=== PATIENT | male | born 1980 | race Two or more races ===

== ENCOUNTER 2025-03-29 22:52 | Inpatient (IN) | payer MEDICAID, OTHER ==
[~2025-03-29] VITALS: Ht 172.7 cm; Wt 70.3 kg
--- NOTE | 2025-03-30 00:31 | ED.PDOC ---
History of Present Illness HPI Comments 44 y/o M is brought in by ambulance for chief complaint of headache, blurry vision, and dizziness status post syncope and fall. Patient reports he fainted outside of an [employer] parking lot, this morning. He reports experiencing a dizziness, chest pain, and shortness of breath prior to passing out. Reports consuming two tall cans of beer prior to arrival. Significant history of liver cirrhosis, diabetes, noncompliance, DKA, and alcohol abuse. Patient has a history of syncope in the past possibly related to DKA. Patient reports he does not have his insulin at this time. Patient denies having any current chest pain, shortness of breath, weakness, numbness, tingling, further associated symptoms or injuries. REVIEW OF SYSTEMS: General: No fever, no chills, HEENT: No neck pain, no blurred vision Cardiac: No chest pain. No palpitations. Lungs: No shortness of breath, GI: No abdominal pain, no vomiting Musculoskeletal: No joint pain , no back pain Skin: No rash, no wound Neuro: Headache, blurry vision, dizziness, syncope PHYSICAL EXAM: General: Awake, alert and oriented. No acute distress. Skin: Skin in warm, dry and intact without rashes or lesions. HEENT: The head is normocephalic and atraumatic. Conjunctivae are clear without exudates or hemorrhage. Sclera is non-icteric. Neck: Normal range of motion. No JVD. Cardiac: Regular rate Respiratory: No signs of respiratory distress. No Stridor. Extremities: Upper and lower extremities are atraumatic in appearance without deformity. Neurological: The patient is awake, alert and oriented to person, place, and time with normal speech. Speech volume low however speech is clear. There is no facial asymmetry. Psychiatric: Appropriate mood and affect. Good judgement and insight. Chief Complaint: Dizziness Time Seen by MD: 23:45 Reviewed Notes: Nurses Notes, Crop Puller Notes, Medications, Allergies Allergies: Coded Allergies: Penicillins (Verified Allergy, Unknown, 03/29/25) Home Meds Reported Medications Insulin Glargine (Insulin Glargine Solostar) 300 Unit/Ml Inj, 15 UNITS SUBCUT BID 03/30/25 Gabapentin (Gabapentin) 300 Mg Cap, 1 CAP PO DAILY 03/30/25 Simvastatin (Simvastatin) 20 Mg Tab, 1 TAB PO HS 03/30/25 Lisinopril (Lisinopril) 10 Mg Tab, 1 TAB PO DAILY 03/30/25 Insulin Isophane & Reg (Human) (Humulin 70/30 (70-30) 100 Unit/ml) 1 Units/0.01 Ml Inj, 15 UNIT SC BID 03/30/25 Information Source: Patient, Emergency Med Personnel Mode of Arrival: EMS Past Medical History PAST MEDICAL HISTORY: DM, HTN, Liver (Cirrhosis) Past Medical History (Other): DKA Surgical History (Other): Right foot surgery Social History Smoker: Non-Smoker Alcohol: Heavy Drugs: Denies Drug Use Lives In: Home Was a procedure done? Was a procedure done?: No Differential Dx Considerations may include: Differential diagnoses considered include but are not limited to cardiac structural disease, arrhythmia, acute coronary syndrome, orthostasis, pulmonary embolism, dissection, seizure, basilar stroke, other. X-Ray, Labs, Meds, VS Vital Signs Date Time Temp Pulse Resp B/P (MAP) Pulse Ox O2 Delivery O2 Flow Rate FiO2 03/30/25 07:00 90 13 122/64 (83) 94 03/30/25 06:30 94 14 115/62 (79) 94 03/30/25 06:00 92 13 131/74 (93) 94 03/30/25 05:30 94 13 110/63 (79) 94 03/30/25 05:00 97 14 117/66 (83) 93 03/30/25 04:30 98 Room Air* 0 21 03/30/25 04:20 98.9 99 18 154/86 (108) 94 98.9 03/30/25 04:00 102 03/30/25 02:40 97.8 101 17 137/64 (88) 93 97.8 03/29/25 23:01 98.3 104 18 120/72 96 98.3 Lab Test 03/30/25 05:58 03/30/25 04:22 03/30/25 03:09 03/30/25 02:57 Range/Units POC Glucose 348 H 450 *H 70-106 mg/dl Sodium Level 133 L 136-145 mmol/L Potassium Level 4.1 3.5-5.1 mmol/L Chloride Level 97 L 98-107 mmol/L Carbon Dioxide Level 18 L 20-31 mmol/L Anion Gap 18 H 5-15 Blood Urea Nitrogen 12 9-23 mg/dL Creatinine 0.91 0.700-1.30 mg/dL Glomerular Filtration Rate Calc 106 >90 mL/min BUN/Creatinine Ratio 13.2 10.0-20.0 Serum Glucose 435 *H 74-106 mg/dL Calcium Level 9.8 8.7-10.4 mg/dL Blood Gas Specimen Type Arterial Blood Gas Sample Site Left radial Blood Gas Patient Temperature 37.0 Arterial Blood Date Drawn [id number] Arterial Blood pH 7.366 7.350-7.450 Arterial Blood Partial Pressure CO2 26.8 L 35.0-48.0 mmHg Arterial Blood Partial Pressure O2 77.6 L 83.0-108.0 mmHg Arterial Blood HCO3 15.0 L 21.0-28.0 mmol/L Arterial Blood Oxygen Saturation 93.8 L 94.0-98.0 % Arterial Blood Base Excess -8.5 L -2.0-3.0 mmol/L Arterial Blood Oxyhemoglobin 91.8 L 94.0-98.0 % Arterial Blood Carboxyhemoglobin 1.5 0.5-1.5 % Arterial Blood Methemoglobin 0.6 0.0-1.5 % Anmol Test Yes Blood Gas Total Hemoglobin 15.40 13.5-17.5 g/dL Blood Gas Liter Flow 0.00 Blood Gas Modality Room air Blood Gas Spontaneous Rate 22 FiO2 % 21.0 Specimen Drawn By Angéliac rt Test 03/29/25 23:59 Range/Units White Blood Count 3.8 L 4.4-10.8 10^3/uL Red Blood Count 3.92 L 4.5-5.90 10^6/uL Hemoglobin 14.7 13.5-17.5 g/dL Hematocrit 41.2 41.0-53.0 % Mean Corpuscular Volume 104.9 H 80.0-100.0 fL Mean Corpuscular Hemoglobin 37.4 H 28.0-32.0 pg Mean Corpuscular Hemoglobin Concent 35.7 32.0-36.0 g/dL Red Cell Distribution Width 13.9 11.8-14.3 % Platelet Count 106 L 140-450 10^3/uL Mean Platelet Volume 7.7 6.9-10.8 fL Neutrophils (%) (Auto) 54.1 37.0-80.0 % Lymphocytes (%) (Auto) 33.9 10.0-50.0 % Monocytes (%) (Auto) 9.0 0.0-12.0 % Eosinophils (%) (Auto) 1.7 0.0-7.0 % Basophils (%) (Auto) 1.3 0.0-2.0 % Neutrophils # (Auto) 2.0 1.6-8.6 10 ^3/uL Lymphocytes # (Auto) 1.3 0.4-5.4 10 ^3/uL Monocytes # (Auto) 0.3 0-1.3 10 ^3/uL Eosinophils # (Auto) 0.1 0-0.8 10 ^3/uL Basophils # (Auto) 0.1 0-0.2 10 ^3/uL Nucleated Red Blood Cells 0.0 % Sodium Level 132 L 136-145 mmol/L Potassium Level 3.8 3.5-5.1 mmol/L Chloride Level 96 L 98-107 mmol/L Carbon Dioxide Level 17 L 20-31 mmol/L Anion Gap 19 H 5-15 Blood Urea Nitrogen 12 9-23 mg/dL Creatinine 0.89 0.700-1.30 mg/dL Glomerular Filtration Rate Calc 108 >90 mL/min BUN/Creatinine Ratio 13.5 10.0-20.0 Serum Glucose 456 *H 74-106 mg/dL Serum Osmolality 335 H 278-298 mOsm/kg Calcium Level 9.5 8.7-10.4 mg/dL Phosphorus Level 3.4 2.4-5.1 mg/dL Magnesium Level 2.0 1.6-2.6 mg/dL Troponin I High Sensitivity < 3 L </=54 ng/L B-Type Natriuretic Peptide 23.88 0-100 pg/mL Beta-Hydroxybutyric Acid 0.971 H < 0.4 mmol/L Plasma/Serum Blood Alcohol 116.2 H <10 mg/dL Current Medications Medications (Trade) Dose Ordered Sig/Rod Route Start Time Stop Time Status Last Admin Sodium Chloride 1,000 ml @ 1,000 mls/hr Q1H ONCE IV 03/30/25 00:00 03/30/25 00:59 DC 03/30/25 04:16 Sodium Chloride 1,000 ml @ 1,000 mls/hr Q1H ONCE IV 03/30/25 02:30 03/30/25 03:29 DC 03/30/25 05:03 Sodium Chloride 1,000 ml @ 500 mls/hr Q2H IV 03/30/25 02:30 03/30/25 06:29 DC 03/30/25 08:40 Sodium Chloride 1,000 ml @ 250 mls/hr Q4H IV 03/30/25 06:30 03/30/25 08:29 DC 03/30/25 08:40 Insulin Human (Reg)/Sodium Chloride 100 ml @ 0.5 mls/hr Q24H IV 03/30/25 04:30 03/30/25 14:13 DC 03/30/25 04:29 Diagnostic Test (Pha) (Accu-Chek Comfort Curve T) 1 strip Q90MIN 03/30/25 04:30 03/30/25 15:28 DC 03/30/25 15:13 [place] [id number] Ph: [phone] DIAGNOSTIC IMAGING Diagnostic Imaging Report : [id number] Signed PATIENT: RINKU LORENZO ACCT: [id number] UNIT: [id number] : 1980 LOC: ER ROOM / BED: / AGE / SEX: 44 / M ADM STATUS: REG ER SERVICE 0004 ORDERING PHYSICIAN: GRANT ROMERO MD PROCEDURE(s): CXR1 - CHEST XRAY 1 VIEW REASON: Chest pain, dizziness ORDER NUMBER(s): [id number], ACCESSION NUMBER(s): [id number] CHEST RADIOGRAPH Indication: Chest pain, dizziness Technique: 1 view Comparison: None FINDINGS: Lines and Tubes: None Lungs: No focal consolidation. Pleura: Bilateral perihilar interstitial opacities. No focal consolidation. Cardiomediastinal contours: Unremarkable. Bones: No acute osseous abnormality. IMPRESSION: Interstitial opacities suggesting edema or atypical infection/pneumonitis. ATED BY: CLIFTON LEE MD DICTATED DATE/TIME: 03/30/25127 SIGNED BY: CLIFTON LEE MD SIGNED DATE/TIME: 03/30/25127 CC: Time of 1ST Reevaluation: 00:15 Reevaluation 1ST: Unchanged Patient Education/Counseling: Treatment, Other (Need for admission) Family Education/Counseling: No Family Present SEPSIS Sepsis Screen Date sepsis recognized/suspect: Mar 29, 2025 Time Sepsis recognized/suspect: 2257 Recent Procedure: No On Antibiotic Therapy: No Respiratory Rate >20: No Heart Rate >90: Yes Temp<36 C (96.8 F) or >38.3 C: No SBP <90 or MAP <65 mmHG: No New Acute Mental Status Change: No Is the patient on CPAP, BIPAP,: No Physician Orders Electrocardigram (03/29/25 23:50) Ops Analyst (03/29/25 ) Orthostatic Vital Signs (03/29/25 ) Saline Lock (03/29/25 23:50) Fall Precautions Initiated (03/29/25 23:50) Urinalysis (03/29/25 23:50) Drug Screen (03/29/25 23:50) Chest Xray 1 View (03/30/25 00:04) Abg W/ Co-Ox (03/30/25 02:27) Insulin Drip Protocol (03/30/25 ) Neurological Assessment (03/30/25 02:28) Vs/Hemodynamics .PER UNIT PROTOCOL (03/30/25 02:28) Vital Signs Q1HR (03/30/25 02:31) Vital Signs Date Time Temp Pulse Resp B/P (MAP) Pulse Ox O2 Delivery O2 Flow Rate FiO2 03/30/25 07:00 90 13 122/64 (83) 94 03/30/25 06:30 94 14 115/62 (79) 94 03/30/25 06:00 92 13 131/74 (93) 94 03/30/25 05:30 94 13 110/63 (79) 94 03/30/25 05:00 97 14 117/66 (83) 93 03/30/25 04:30 98 Room Air* 0 21 03/30/25 04:20 98.9 99 18 154/86 (108) 94 98.9 03/30/25 04:00 102 03/30/25 02:40 97.8 101 17 137/64 (88) 93 97.8 03/29/25 23:01 98.3 104 18 120/72 96 98.3 Laboratory Tests Test 03/29/25 23:59 White Blood Count 3.8 10^3/uL (4.4-10.8) L Departure 1 Departure Time of Disposition: 02:55 Impression: Primary Impression: DKA (diabetic ketoacidosis) Additional Impression: Syncope Disposition: ADMITTED INPATIENT Condition: Stable Comments MDM: 44-year-old male with syncopal episode in DKA IV fluids and insulin initiated in the ED Patient admitted to hospitalist service for further treatment, evaluation and monitoring. Extensive evaluation was performed in attempt to identify or rule out: (See differential diagnosis section) The following tests were ordered, and results were reviewed by me and discussed with patient: (See diagnostic results section) The following test were independently interpreted by me: N/A I reviewed and agreed with the following test results read by other providers: Chest x-ray I reviewed the following notes from the pt's past medical encounters: N/A Additional information was gathered from interviewing the following independent historians: EMS personnel Discussion of management or test interpretation with external physician/other qualified health child care cook: N/A Addressed one or more chronic illnesses with severe exacerbation, progression, or side effects of treatment: Diabetes, an acute or chronic illness that poses a threat to life or bodily function: Hyperglycemia, syncope Decision regarding hospitalization or escalation of hospital level of care: Risk and benefits of admission for further treatment of patient's condition was considered. Due to patient's current clinical condition, high risk of decline and poor outcome if discharged and need for further inpatient management and monitoring, patient will be admitted to the hospital. Critical Care Note Critical Care Time?: No Stability Stability form required: No Heart Score Heart Score: Heart Score Response (Comments) Value History Moderate Suspicious 1 EKG Normal 0 Age 45-64 1 Risk Factors 1 or 2 risk factors 1 Troponin Normal limit 0 Total 3 I personally scribed for GRANT ROMERO MD ([email or web address]) on 03/30/25 at 00:31. Electronically submitted by Randy Aguero ([email or web address]). I personally scribed for GRANT ROMERO MD ([email or web address]) on 03/30/25 at 02:48. Electronically submitted by Randy Aguero ([email or web address]). GRANT ROMERO MD Mar 30, 2025 00:31
[2025-03-30 00:35] LABS: Potassium 3.8 mmol/L (3.5-5.1)
[2025-03-30 00:36] LABS: Anion Gap 19 (5-15)
[2025-03-30 00:37] LABS: Calcium 9.5 mg/dL (8.7-10.4)
[2025-03-30 00:41] LABS: Hemoglobin 14.7 g/dL (13.5-17.5)
[2025-03-30 00:42] LABS: BUN/Creatinine Ratio 13.5 (10.0-20.0); Blood Urea Nitrogen 12 mg/dL (9-23)
[2025-03-30 00:43] LABS: Hematocrit 41.2 % (41.0-53.0); Mean Corpuscular Hemoglobin 37.4 pg (28.0-32.0); Mean Corpuscular Volume 104.9 fL (80.0-100.0); Nucleated Red Blood Cells % 0.0 %
[2025-03-30 00:56] LABS: Carbon Dioxide 17 mmol/L (20-31); Chloride 96 mmol/L (98-107); Sodium 132 mmol/L (136-145)
[2025-03-30 00:58] LABS: Glucose 456 mg/dL (74-106)
--- NOTE | 2025-03-30 01:30 | DVH ---
CHEST RADIOGRAPH Indication: Chest pain, dizziness Technique: 1 view Comparison: None FINDINGS: Lines and Tubes: None Lungs: No focal consolidation. Pleura: Bilateral perihilar interstitial opacities. No focal consolidation. Cardiomediastinal contours: Unremarkable. Bones: No acute osseous abnormality. IMPRESSION: Interstitial opacities suggesting edema or atypical infection/pneumonitis.
[2025-03-30] MEDS ORDERED: INSULIN DRIP 100 UNIT/100ML 100 ML IV SCH (02:30)
[2025-03-30] MEDS ORDERED: DEXTROSE (50%) 50ML SYRG IV PRN ×2 (02:30→14:15)
[2025-03-30 02:58] LABS: Magnesium 2.0 mg/dL (1.6-2.6)
[2025-03-30] MEDS ORDERED: ACCU-CHEK COMFORT CURVE STRIP VI SCH (03:00)
[2025-03-30 03:02] LABS: Base Excess -8.5 mmol/L (-2.0-3.0)
[2025-03-30 03:33] LABS: Potassium 4.1 mmol/L (3.5-5.1)
[2025-03-30 03:34] LABS: Anion Gap 18 (5-15); Calcium 9.8 mg/dL (8.7-10.4); Carbon Dioxide 18 mmol/L (20-31); Chloride 97 mmol/L (98-107); Sodium 133 mmol/L (136-145)
[2025-03-30 03:39] LABS: BUN/Creatinine Ratio 13.2 (10.0-20.0); Blood Urea Nitrogen 12 mg/dL (9-23)
[2025-03-30 03:49] LABS: Glucose 435 mg/dL (74-106)
[2025-03-30] MEDS: SODIUM CHLORIDE 0.9% 1,000 ML IV ONE ×3 (04:16→15:12)
[2025-03-30] MEDS: INSULIN DRIP 100 UNIT/100ML 100 ML IV SCH (04:29)
[2025-03-30] MEDS: ACCU-CHEK COMFORT CURVE STRIP VI SCH ×2 (04:29→17:54)
[2025-03-30 04:30] VITALS: O2SAT 98
[2025-03-30] MEDS: SODIUM CHLORIDE 0.9% 1,000 ML IV SCH ×3 (06:14→09:17)
[2025-03-30] MEDS ORDERED: GABA-1250 PO (06:42)
[2025-03-30] MEDS ORDERED: SIMV20TA20 PO (06:42)
[2025-03-30] MEDS ORDERED: INS7030I SC (06:42)
[2025-03-30] MEDS ORDERED: LISI10TA34 PO (06:42)
[2025-03-30] MEDS ORDERED: HYDROcodone-ACET 5/325MG TAB PO PRN ×2 (08:00→08:15)
[2025-03-30] MEDS ORDERED: DOCUSATE SOD 100 MG CAP PO PRN ×2 (08:00→08:15)
[2025-03-30] MEDS ORDERED: NITROGLYCERIN 0.4 MG SL TAB SL PRN ×2 (08:00→08:15)
[2025-03-30] MEDS ORDERED: MORPHINE SULFATE INJ 2 MG/ml SYRG IV PRN ×2 (08:00→08:15)
[2025-03-30] MEDS ORDERED: ONDANSETRON HCL 4 MG/2 ML VIAL IV PRN ×2 (08:00→08:15)
[2025-03-30] MEDS ORDERED: ACETAMINOPHEN 325 MG TAB PO PRN ×2 (08:00→08:15)
[2025-03-30] MEDS ORDERED: INSU300I5 SUBCUT (08:01)
[2025-03-30 08:06] VITALS: RESP 15; O2SAT 98
--- NOTE | 2025-03-30 08:13 | DVHHP2 ---
History of Present Illness Reason for Visit: Dizziness History of Present Illness Shahid Huff is a 44-year-old male with past medical history of diabetes, hypertension, hyperlipidemia, liver cirrhosis, and noncompliance, who came to the hospital after a syncopal event this morning. Patient does not remember exactly what happened or what time, but he states he was outside [employer] when he felt dizzy and and had a syncopal event. He states this has happened to him before when he did not take his insulin and went into DKA. He did not take his insulin yesterday. Cardiovascular: HTN, hyperipidemia Hepatobiliary: Cirrhosis Endocrine: Diabetes Past Surgical History: None Smoke: No ALCOHOL: heavy (2 tall cans of beer/day) Drugs: Marijuana Lives: Alone Domestic Violence: Neg Review of Systems Constitutional: No: Fever, Chills, Sweats, Weakness, Malaise, Other Eyes: No: Pain, Vision change, Conjunctivae inflammation, Eyelid inflammation, Other, Redness ENT: No: Ear pain, Ear discharge, Nose pain, Nose discharge, Nose congestion, Mouth pain, Mouth swelling, Throat pain, Throat swelling, Other Respiratory: No: Cough, Dry, Shortness of breath, SOB with excertion, Wheezing, Hemoptysis, Pleuritic Pain, Sputum, Wheezing, Other Cardiovascular: No: Chest Pain, Palpitations, Orthopnea, Paroxysmal Noc. Dyspnea, Edema, Lt Headedness, Other Gastrointestinal: Nausea; No: Vomiting, Abdominal Pain, Diarrhea, Constipation, Melena, Hematochezia, Other Genitourinary: No Dysuria, No Frequency, No Incontinence, No Hematuria, No Retention, No Other Musculoskeletal: No: other, neck pain, shoulder pain, arm pain, back pain, hand pain, leg pain, foot pain Skin: No: Rash, Lesions, Jaundice, Bruising, Other Neurological: Incoordination, Other (Syncopal event); No: Weakness, Numbness, Change in speech, Confusion, Seizures Allergies: Coded Allergies: Penicillins (Verified Allergy, Unknown, 03/29/25) Medications Current Medications Medications Dose Ordered Sig/Rod Route Start Time Stop Time Status Last Admin Dose Admin Sodium Chloride 1,000 ml @ 250 mls/hr Q4H IV 03/30/25 06:30 03/30/25 08:29 Sodium Chloride 1,000 ml @ 150 mls/hr Q6H40M IV 03/30/25 08:30 Dextrose 50 ml UD PRN IV 03/30/25 02:30 Insulin Human (Reg)/Sodium Chloride 100 ml @ 0.5 mls/hr Q24H IV 03/30/25 04:30 03/30/25 04:29 6 MLS/HR Diagnostic Test (Pha) 1 strip Q90MIN 03/30/25 04:30 03/30/25 06:14 1 STRIP Acetaminophen/ Hydrocodone Bitart 1 tab Q4HP PRN PO 03/30/25 08:00 UNV Ondansetron HCl 4 mg Q4HP PRN IV 03/30/25 08:00 UNV Docusate Sodium 100 mg BIDPRN PRN PO 03/30/25 08:00 UNV Acetaminophen 650 mg Q6HP PRN PO 03/30/25 08:00 UNV Nitroglycerin 0.4 mg Q5MINP PRN SL 03/30/25 08:00 UNV Morphine Sulfate 2 mg Q30M PRN IV 03/30/25 08:00 UNV Patient Own Medication 1 tab DAILY PO 03/30/25 10:00 UNV Patient Own Medication 1 tab HS PO 03/30/25 22:00 UNV Exam Vital Signs Vital Signs Date Time Temp Pulse Resp B/P (MAP) Pulse Ox O2 Delivery O2 Flow Rate FiO2 03/30/25 07:00 90 13 122/64 (83) 94 03/30/25 04:30 Room Air* 0 21 03/30/25 04:20 98.9 98.9 General Appearance: Alert, Oriented X3, Cooperative, mild distress HEENT: Atraumatic, PERRLA Respiratory: Clear to auscultation, Normal air movement Cardiovascular: Regular rate, Normal S1, Normal S2 Abdominal: Normal bowel sounds, Soft, No tenderness Extremities: No clubbing, No cyanosis, No edema, Normal pulses Skin: No rashes, No breakdown, No significant lesion Neuro: Normal gait, Normal speech, Strength at 5/5 X4 ext, Normal tone Psych/Mental Status: Mental status NL, Mood NL Labs/Xrays Labs Test 03/30/25 05:58 03/30/25 03:09 03/30/25 02:57 03/29/25 23:59 Range/Units POC Glucose 348 H 70-106 mg/dl Sodium Level 133 L 136-145 mmol/L Potassium Level 4.1 3.5-5.1 mmol/L Chloride Level 97 L 98-107 mmol/L Carbon Dioxide Level 18 L 20-31 mmol/L Anion Gap 18 H 5-15 Blood Urea Nitrogen 12 9-23 mg/dL Creatinine 0.91 0.700-1.30 mg/dL Glomerular Filtration Rate Calc 106 >90 mL/min BUN/Creatinine Ratio 13.2 10.0-20.0 Serum Glucose 435 *H 74-106 mg/dL Calcium Level 9.8 8.7-10.4 mg/dL Blood Gas Specimen Type Arterial Blood Gas Sample Site Left radial Blood Gas Patient Temperature 37.0 Arterial Blood Date Drawn [id number] Arterial Blood pH 7.366 7.350-7.450 Arterial Blood Partial Pressure CO2 26.8 L 35.0-48.0 mmHg Arterial Blood Partial Pressure O2 77.6 L 83.0-108.0 mmHg Arterial Blood HCO3 15.0 L 21.0-28.0 mmol/L Arterial Blood Oxygen Saturation 93.8 L 94.0-98.0 % Arterial Blood Base Excess -8.5 L -2.0-3.0 mmol/L Arterial Blood Oxyhemoglobin 91.8 L 94.0-98.0 % Arterial Blood Carboxyhemoglobin 1.5 0.5-1.5 % Arterial Blood Methemoglobin 0.6 0.0-1.5 % Anmol Test Yes Blood Gas Total Hemoglobin 15.40 13.5-17.5 g/dL Blood Gas Liter Flow 0.00 Blood Gas Modality Room air Blood Gas Spontaneous Rate 22 FiO2 % 21.0 Specimen Drawn By [facility] rt White Blood Count 3.8 L 4.4-10.8 10^3/uL Red Blood Count 3.92 L 4.5-5.90 10^6/uL Hemoglobin 14.7 13.5-17.5 g/dL Hematocrit 41.2 41.0-53.0 % Mean Corpuscular Volume 104.9 H 80.0-100.0 fL Mean Corpuscular Hemoglobin 37.4 H 28.0-32.0 pg Mean Corpuscular Hemoglobin Concent 35.7 32.0-36.0 g/dL Red Cell Distribution Width 13.9 11.8-14.3 % Platelet Count 106 L 140-450 10^3/uL Mean Platelet Volume 7.7 6.9-10.8 fL Neutrophils (%) (Auto) 54.1 37.0-80.0 % Lymphocytes (%) (Auto) 33.9 10.0-50.0 % Monocytes (%) (Auto) 9.0 0.0-12.0 % Eosinophils (%) (Auto) 1.7 0.0-7.0 % Basophils (%) (Auto) 1.3 0.0-2.0 % Neutrophils # (Auto) 2.0 1.6-8.6 10 ^3/uL Lymphocytes # (Auto) 1.3 0.4-5.4 10 ^3/uL Monocytes # (Auto) 0.3 0-1.3 10 ^3/uL Eosinophils # (Auto) 0.1 0-0.8 10 ^3/uL Basophils # (Auto) 0.1 0-0.2 10 ^3/uL Nucleated Red Blood Cells 0.0 % Serum Osmolality 335 H 278-298 mOsm/kg Phosphorus Level 3.4 2.4-5.1 mg/dL Magnesium Level 2.0 1.6-2.6 mg/dL Troponin I High Sensitivity < 3 L </=54 ng/L B-Type Natriuretic Peptide 23.88 0-100 pg/mL Beta-Hydroxybutyric Acid 0.971 H < 0.4 mmol/L Plasma/Serum Blood Alcohol 116.2 H <10 mg/dL CHEST RADIOGRAPH FINDINGS: Lines and Tubes: None Lungs: No focal consolidation. Pleura: Bilateral perihilar interstitial opacities. No focal consolidation. Cardiomediastinal contours: Unremarkable. Bones: No acute osseous abnormality. IMPRESSION: Interstitial opacities suggesting edema or atypical infection/pne umonitis. SEPSIS Sepsis Screen Date sepsis recognized/suspect: Mar 29, 2025 Time Sepsis recognized/suspect: 2257 Recent Procedure: No On Antibiotic Therapy: No Respiratory Rate >20: No Heart Rate >90: Yes Temp<36 C (96.8 F) or >38.3 C: No SBP <90 or MAP <65 mmHG: No New Acute Mental Status Change: No Is the patient on CPAP, BIPAP,: No Physician Orders Chest Xray 1 View (03/30/25 00:04) Abg W/ Co-Ox (03/30/25 02:27) Insulin Drip Protocol (03/30/25 ) Sodium Chloride 0.9% (03/30/25 06:30) Sodium Chloride 0.9% (03/30/25 08:30) Dextrose 50% Syringe (03/30/25 02:30) Basic Metabolic Panel (03/30/25 08:28) Basic Metabolic Panel (03/30/25 14:28) Basic Metabolic Panel (03/30/25 20:28) Neurological Assessment (03/30/25 02:28) Vs/Hemodynamics .PER UNIT PROTOCOL (03/30/25 02:28) Vital Signs Q1HR (03/30/25 02:31) Insulin Drip 100 Unit/100ml (Myxredlin 1 (03/30/25 04:30) Glucose Blood (Accu-Chek Comfort Curve T (03/30/25 04:30) Admit (03/30/25 07:55) Code Status (03/30/25 07:55) Hydrocodone-Acet 5/325mg Tab ([place] 32 (03/30/25 08:00) Ondansetron Hcl (Zofran) (03/30/25 08:00) Docusate Sodium Capsule (Colace Capsule) (03/30/25 08:00) Complete Blood Count (03/31/25 04:00) Comprehensive Metabolic Panel (03/31/25 04:00) Npo (Nothing By Mouth) Diet (03/30/25 Breakfast) Condition: Critical (03/30/25 07:55) Acetaminophen Tablet (Tylenol Tablet) (03/30/25 08:00) Nitroglycerin Sublingual (Ntrostat Subli (03/30/25 08:00) Morphine Sulfate Injection (03/30/25 08:00) Stat Ekg For Chest Pain (03/30/25 07:55) Notify Md Of Changes From Base (03/30/25 07:55) Welfare Analyst For 24 Hours (03/30/25 07:55) Emergency Dysrhythmia Protocol (03/30/25 07:55) Rhythm Strips Once Every Shift (03/30/25 07:55) Oxygen By Nasal Cannula (03/30/25 07:55) (Nf) Lisinopril (03/30/25 10:00) (Nf) Simvastatin (03/30/25 22:00) Gabapentin Capsule (Neurontin Capsule) (03/30/25 10:00) (Nf) Insulin Glargine (Insulin Glargine (03/30/25 10:00) Vital Signs Date Time Temp Pulse Resp B/P (MAP) Pulse Ox O2 Delivery O2 Flow Rate FiO2 03/30/25 07:00 90 13 122/64 (83) 94 03/30/25 06:30 94 14 115/62 (79) 94 03/30/25 06:00 92 13 131/74 (93) 94 03/30/25 05:30 94 13 110/63 (79) 94 03/30/25 05:00 97 14 117/66 (83) 93 03/30/25 04:30 98 Room Air* 0 21 03/30/25 04:20 98.9 99 18 154/86 (108) 94 98.9 03/30/25 04:00 102 03/30/25 02:40 97.8 101 17 137/64 (88) 93 97.8 Laboratory Tests Test 03/29/25 23:59 White Blood Count 3.8 10^3/uL (4.4-10.8) L Medications Medications Dose Ordered Sig/Rod Route Start Time Stop Time Status Last Admin Dose Admin Diagnostic Test (Pha) 1 strip Q90MIN 03/30/25 04:30 03/30/25 06:14 1 STRIP Insulin Human (Reg)/Sodium Chloride 100 ml @ 0.5 mls/hr Q24H IV 03/30/25 04:30 03/30/25 04:29 6 MLS/HR Sodium Chloride 1,000 ml @ 500 mls/hr Q2H IV 03/30/25 02:30 03/30/25 06:29 DC 03/30/25 06:14 500 MLS/HR Sodium Chloride 1,000 ml @ 1,000 mls/hr Q1H ONCE IV 03/30/25 00:00 03/30/25 00:59 DC 03/30/25 04:16 1,000 MLS/HR Sodium Chloride 1,000 ml @ 1,000 mls/hr Q1H ONCE IV 03/30/25 02:30 03/30/25 03:29 DC 03/30/25 05:03 1,000 MLS/HR Assessment/Plan Assessment/Plan Assessment: DKA (diabetic ketoacidosis), Syncopal event, secondary to ETOH intoxication, Hypertension, Liver Cirrhosis, ETOH dependance, Plan: Admit to [place], IV insulin drip, IV hydration, BMP Q 6 hours, Librium tapering dose, Folic acid, thiamine, and multivitamin PO, PRN Ativan for ETOH withdrawal, Home medications reconciled, Plan discussed with: Patient My Orders Orders - SERGIO KENNEDY Procedure Category Date Status Time Admit ADMIT 03/30/25 Transmitted 07:55 Code Status CODE 03/30/25 Transmitted 07:55 Hydrocodone-Acet PHA 03/30/25 Transmitted 5/325mg Tab ([place] 08:00 Ondansetron Hcl PHA 03/30/25 Transmitted (Zofran) 08:00 Docusate Sodium PHA 03/30/25 Transmitted Capsule (Colace 08:00 Complete Blood Count LAB 03/31/25 Verified 04:00 Comprehensive LAB 03/31/25 Verified Metabolic Panel 04:00 Npo (Nothing By DIET 03/30/25 Transmitted Mouth) Diet Breakfast Condition: Critical [facility] 03/30/25 Transmitted 07:55 Acetaminophen Tablet [facility] 03/30/25 Transmitted (Tylenol Tablet) 08:00 Nitroglycerin [facility] 03/30/25 Transmitted Sublingual (Ntrostat 08:00 Morphine Sulfate PHA 03/30/25 Transmitted Injection 08:00 Stat Ekg For Chest [facility] 03/30/25 Transmitted Pain 07:55 Notify Of Changes [facility] 03/30/25 Transmitted From Base 07:55 Welfare Analyst For [facility] 03/30/25 Transmitted 24 Hours 07:55 Emergency Dysrhythmia [facility] 03/30/25 Transmitted Protocol 07:55 Rhythm Strips Once [facility] 03/30/25 Transmitted Every Shift 07:55 Oxygen By Nasal RT 03/30/25 Transmitted Cannula 07:55 (Nf) Lisinopril [facility] 03/30/25 Transmitted 10:00 (Nf) Simvastatin PHA 03/30/25 Transmitted 22:00 Gabapentin Capsule PHA 03/30/25 Verified (Neurontin Capsule) 10:00 (Nf) Insulin Glargine PHA 03/30/25 Verified (Insulin Glargine 10:00 Date of Service: Mar 30, 2025 Billing Provider: SERGIO KENNEDY Common Visit Codes: [id number] INP/OBS CARE (HIGH) SERGIO KENNEDY Mar 30, 2025 08:13
[2025-03-30] MEDS ORDERED: LORazepam 2MG/ML-1ML VIAL IV PRN ×2 (08:15)
[2025-03-30] MEDS ORDERED: GABAPENTIN 300 MG CAP PO SCH (10:00)
[2025-03-30] MEDS ORDERED: INSULIN GLARGINE 15 UNIT SUBCUT SCH (10:00)
[2025-03-30] MEDS ORDERED: PATIENTS OWN MEDICATION (Lisinopril 1 TAB) PO SCH ×2 (10:00)
[2025-03-30] MEDS ORDERED: MULTIPLE VITAMIN TAB PO SCH (10:00)
[2025-03-30] MEDS ORDERED: FOLIC ACID 1 MG TAB PO SCH (10:00)
[2025-03-30] MEDS ORDERED: THIAMINE HCL 100 MG TAB PO SCH (10:00)
[2025-03-30 10:27] LABS: Chloride 106 mmol/L (98-107); Sodium 138 mmol/L (136-145)
[2025-03-30 10:28] LABS: Anion Gap 10 (5-15); Carbon Dioxide 22 mmol/L (20-31)
[2025-03-30 10:33] LABS: BUN/Creatinine Ratio 14.5 (10.0-20.0); Blood Urea Nitrogen 11 mg/dL (9-23)
[2025-03-30 10:36] LABS: Calcium 8.3 mg/dL (8.7-10.4); Glucose 214 mg/dL (74-106); Potassium 3.5 mmol/L (3.5-5.1)
[2025-03-30] MEDS: FOLIC ACID 1 MG TAB PO SCH (13:22)
[2025-03-30] MEDS: THIAMINE HCL 100 MG TAB PO SCH (13:23)
[2025-03-30] MEDS: MULTIPLE VITAMIN TAB PO SCH (13:23)
[2025-03-30] MEDS: GABAPENTIN 300 MG CAP PO SCH (13:23)
[2025-03-30 13:28] LABS: Chloride 106 mmol/L (98-107); Potassium 3.8 mmol/L (3.5-5.1); Sodium 138 mmol/L (136-145)
[2025-03-30 13:29] LABS: Anion Gap 9 (5-15); Carbon Dioxide 23 mmol/L (20-31)
[2025-03-30 13:31] LABS: Calcium 8.3 mg/dL (8.7-10.4)
[2025-03-30 13:34] LABS: BUN/Creatinine Ratio 13.2 (10.0-20.0); Blood Urea Nitrogen 10 mg/dL (9-23); Glucose 176 mg/dL (74-106)
[2025-03-30] MEDS: POTASSIUM EFFERVESENT TAB 25 MEQ PO ONE (14:17)
[2025-03-30] MEDS: D5W/SOD CHL 0.45%/KCL 20MEQ 1,000 ML IV SCH (14:24)
--- NOTE | 2025-03-30 14:35 | DVHPN2 ---
Subjective Patient is admitted overnight for DKA. His anion gap is closed. Patient is otherwise stable without complaints Changes from previous H/P or p: No Changes Gastrointestinal: Nausea Objective Vitals Vital Signs Date Time Temp Pulse Resp B/P (MAP) Pulse Ox O2 Delivery O2 Flow Rate FiO2 03/30/25 12:00 79 03/30/25 10:00 98.8 15 129/70 (89) 92 98.8 03/30/25 08:06 Room Air* 0 21 Intake/Output Intake and Output 03/30/25 07:00 Intake Total 2003 ml Balance 2003 ml Intake IV Total 2003 ml Exam Alert, awake and oriented to place and person. Comfortable in bed without distress. HEENT neck supple no JVD. Heart regular rate rhythm S1-S2. Lungs fair air movement without rales wheezes poor inspiratory effort. Abdomen soft nontender positive bowel sounds. Extremities no edema positive pulses Medications Current Medications Medications Dose Ordered Sig/Rdo Route Start Time Stop Time Status Last Admin Dose Admin Dextrose 50 ml UD PRN IV 03/30/25 02:30 Diagnostic Test (Pha) 1 strip Q90MIN 03/30/25 04:30 03/30/25 13:34 1 STRIP Chlordiazepoxide HCl 50 mg Q12HR PO 03/31/25 10:00 03/31/25 22:01 Chlordiazepoxide HCl 25 mg Q12HR PO 04/01/25 10:00 04/01/25 22:01 Chlordiazepoxide HCl 25 mg QAM PO 04/02/25 07:00 04/02/25 07:01 Ondansetron HCl 4 mg Q4HP PRN IV 03/30/25 08:15 Morphine Sulfate 2 mg Q30M PRN IV 03/30/25 08:15 Lorazepam 1 mg Q2HP PRN IV 03/30/25 08:15 Acetaminophen/ Hydrocodone Bitart 1 tab Q4HP PRN PO 03/30/25 08:15 Docusate Sodium 100 mg BIDPRN PRN PO 03/30/25 08:15 Acetaminophen 650 mg Q6HP PRN PO 03/30/25 08:15 Nitroglycerin 0.4 mg Q5MINP PRN SL 03/30/25 08:15 Gabapentin 300 mg DAILY PO 03/30/25 10:00 Thiamine HCl 100 mg DAILY PO 03/30/25 10:00 Folic Acid 1 mg DAILY PO 03/30/25 10:00 Multivitamins 1 tab DAILY PO 03/30/25 10:00 Chlordiazepoxide HCl 50 mg Q8H PO 03/30/25 08:15 03/31/25 00:16 Patient Own Medication 1 tab DAILY PO 03/30/25 10:00 UNV Patient Own Medication 1 tab HS PO 03/30/25 22:00 UNV Patient Own Medication 15 units BID SC 03/30/25 10:00 Potassium Chloride/Dextrose/ Sod Cl 1,000 ml @ 120 mls/hr Q8H20M IV 03/30/25 11:30 Lisinopril 10 mg DAILY PO 03/31/25 10:00 Atorvastatin Calcium 10 mg HS PO 03/30/25 22:00 Diagnostic Test (Pha) 1 strip Q6HR 03/30/25 18:00 UNV Insulin Human Regular Q6HR SC 03/30/25 18:00 UNV Dextrose 50 ml UD PRN IV 03/30/25 14:15 UNV Laboratory Results Laboratory Tests 03/29/25 23:59 03/30/25 12:55 Chemistry Test 03/29/25 23:59 03/30/25 03:09 03/30/25 08:30 03/30/25 12:55 Calcium Level 9.5 mg/dL (8.7-10.4) 9.8 mg/dL (8.7-10.4) 8.3 mg/dL (8.7-10.4) L 8.3 mg/dL (8.7-10.4) L Magnesium Level 2.0 mg/dL (1.6-2.6) Phosphorus Level 3.4 mg/dL (2.4-5.1) Cardiac Markers Test 03/29/25 23:59 B-Type Natriuretic Peptide 23.88 pg/mL (0-100) HgA1c, TSH Test 03/30/25 12:55 Hemoglobin A1c 12.1 % A1C (<5.7) H Blood Gas Results Test 03/30/25 02:57 Arterial Blood pH 7.366 (7.350-7.450) FiO2 % 21.0 Assessment/Plan Assessment/Plan Given acute ketoacidosis resolved we will DC the insulin drip. Continue long- acting Lantus insulin and I will start him on moderate dose q.6 our sliding scale insulin coverage. Continue fluids. Replace electrolytes including potassium magnesium as needed. Advance his diet to full liquid diet. Otherwise continue rest of supportive care and treatment. Further clinical management per clinical course. Discussed with the nurse regarding care plan Plan discussed with: Patient, Other My Orders Orders - JAMES FUENTES MD Procedure Category Date Status Time Basic Metabolic Panel LAB 03/31/25 Verified 04:00 Magnesium LAB 03/31/25 Verified 04:00 Basic Metabolic Panel LAB 03/30/25 Logged 19:00 Full Liq Diet DIET 03/30/25 Transmitted Dinner Glucose Blood PHA 03/30/25 Logged (Accu-Chek Comfort 18:00 Insulin R (Human) PHA 03/30/25 Logged (Insulin R) 18:00 Dextrose 50% Syringe PHA 03/30/25 Logged 14:15 Problem List: (1) Syncope (2) DKA (diabetic ketoacidosis) Date of Service: Mar 30, 2025 Billing Provider: JAMES FUENTES MD Common Visit Codes: [id number] INP/OBS CARE(MOD) JAMES FUENTES MD Mar 30, 2025 14:35
[2025-03-30] MEDS: INSULIN GLARGINE 15 UNIT SC SCH (16:15)
[2025-03-30] MEDS: InsuLIN REG 1unit/0.01ml Soln (100units/ml) SC SCH (17:53)
[2025-03-30 19:18] LABS: Chloride 104 mmol/L (98-107); Potassium 4.1 mmol/L (3.5-5.1)
[2025-03-30 19:19] LABS: Anion Gap 7 (5-15); Carbon Dioxide 23 mmol/L (20-31)
[2025-03-30 19:24] LABS: BUN/Creatinine Ratio 12.5 (10.0-20.0); Blood Urea Nitrogen 12 mg/dL (9-23)
[2025-03-30 19:26] LABS: Calcium 8.3 mg/dL (8.7-10.4); Glucose 381 mg/dL (74-106); Sodium 134 mmol/L (136-145)
[2025-03-30] MEDS: ATORVASTATIN 20 MG TAB PO SCH (21:15)
[2025-03-30] MEDS ORDERED: PATIENTS OWN MEDICATION (Simvastatin 1 TAB) PO SCH ×2 (22:00)
[2025-03-31] VITALS (9 sets, daily range): BP systolic 100–127; BP diastolic 61–81; PULSE 76–88; RESP 16–21; TEMP 97.5–98.5; O2SAT 94–97
[2025-03-31 00:56] LABS: Chloride 105 mmol/L (98-107); Potassium 3.9 mmol/L (3.5-5.1); Sodium 136 mmol/L (136-145)
[2025-03-31 00:57] LABS: Anion Gap 8 (5-15); Carbon Dioxide 23 mmol/L (20-31)
[2025-03-31 00:59] LABS: Calcium 8.4 mg/dL (8.7-10.4)
[2025-03-31 01:02] LABS: BUN/Creatinine Ratio 10.9 (10.0-20.0); Blood Urea Nitrogen 11 mg/dL (9-23)
[2025-03-31 01:06] LABS: Glucose 296 mg/dL (74-106)
[2025-03-31 08:36] LABS: Hematocrit 38.9 % (41.0-53.0); Hemoglobin 13.9 g/dL (13.5-17.5); Mean Corpuscular Hemoglobin 37.6 pg (28.0-32.0); Mean Corpuscular Volume 105.1 fL (80.0-100.0); Nucleated Red Blood Cells % 0.2 %
[2025-03-31 08:55] LABS: Anion Gap 9 (5-15); Carbon Dioxide 22 mmol/L (20-31); Chloride 107 mmol/L (98-107); Potassium 3.7 mmol/L (3.5-5.1); Sodium 138 mmol/L (136-145)
[2025-03-31 08:56] LABS: BUN/Creatinine Ratio 12.0 (10.0-20.0); Blood Urea Nitrogen 10 mg/dL (9-23); Magnesium 1.7 mg/dL (1.6-2.6); Total Protein 6.0 g/dL (5.7-8.2)
[2025-03-31 09:00] LABS: Alanine Aminotransferase 49 U/L (7-40); Albumin 3.0 g/dL (3.2-4.8); Bilirubin, Total 1.6 mg/dL (0.2-1.0); Calcium 8.3 mg/dL (8.7-10.4); Glucose 281 mg/dL (74-106)
[2025-03-31 09:03] LABS: Alkaline Phosphatase 239 U/L (46-116)
[2025-03-31] MEDS: LISINOPRIL 5 MG TAB PO SCH (10:31)
[2025-03-31] MEDS ORDERED: INSU100I4 SC (16:00)
[2025-03-31] MEDS ORDERED: GABA-1250 PO (16:00)
[2025-03-31] MEDS ORDERED: INSU300I5 SUBCUT (16:00)
[2025-03-31] MEDS ORDERED: BLOO-200 XX (16:00)
[2025-03-31] MEDS ORDERED: LANC-347 XX (16:00)
[2025-03-31] MEDS ORDERED: SIMV20TA20 PO (16:00)
[2025-03-31] MEDS ORDERED: LISI10TA34 PO (16:00)
--- NOTE | 2025-03-31 16:01 | DVHPN2 ---
Subjective DKA is resolved. Blood sugars in the 2-300 range. Counseled and educated regarding insulin compliance and close follow up. Patient apparently does not check his blood sugars at home because it does not have a glucometer. Changes from previous H/P or p: No Changes Gastrointestinal: Nausea Objective Vitals Vital Signs Date Time Temp Pulse Resp B/P (MAP) Pulse Ox O2 Delivery O2 Flow Rate FiO2 03/31/25 10:31 112/72 03/31/25 09:00 97.5 88 18 97 97.5 03/31/25 08:00 Room Air* 0 21 Intake/Output Intake and Output 03/31/25 07:00 Intake Total 1500 ml Balance 1500 ml Intake Oral 0 ml IV Total 1500 ml # Voids 1 # Bowel Movements 1 Exam Alert, awake and oriented to place and person. Comfortable in bed without distress. HEENT neck supple no JVD. Heart regular rate rhythm S1-S2. Lungs fair air movement without rales wheezes poor inspiratory effort. Abdomen soft nontender positive bowel sounds. Extremities no edema positive pulses Medications Current Medications Medications Dose Ordered Sig/Rod Route Start Time Stop Time Status Last Admin Dose Admin Chlordiazepoxide HCl 50 mg Q12HR PO 03/31/25 10:00 03/31/25 22:01 03/31/25 10:30 50 MG Chlordiazepoxide HCl 25 mg Q12HR PO 04/01/25 10:00 04/01/25 22:01 Chlordiazepoxide HCl 25 mg QAM PO 04/02/25 07:00 04/02/25 07:01 Ondansetron HCl 4 mg Q4HP PRN IV 03/30/25 08:15 Morphine Sulfate 2 mg Q30M PRN IV 03/30/25 08:15 Lorazepam 1 mg Q2HP PRN IV 03/30/25 08:15 Acetaminophen/ Hydrocodone Bitart 1 tab Q4HP PRN PO 03/30/25 08:15 Docusate Sodium 100 mg BIDPRN PRN PO 03/30/25 08:15 Acetaminophen 650 mg Q6HP PRN PO 03/30/25 08:15 Nitroglycerin 0.4 mg Q5MINP PRN SL 03/30/25 08:15 Gabapentin 300 mg DAILY PO 03/30/25 10:00 Thiamine HCl 100 mg DAILY PO 03/30/25 10:00 03/31/25 10:31 100 MG Folic Acid 1 mg DAILY PO 03/30/25 10:00 03/31/25 10:31 1 MG Multivitamins 1 tab DAILY PO 03/30/25 10:00 03/31/25 10:31 1 TAB Patient Own Medication 1 tab DAILY PO 03/30/25 10:00 UNV Patient Own Medication 1 tab HS PO 03/30/25 22:00 UNV Potassium Chloride/Dextrose/ Sod Cl 1,000 ml @ 120 mls/hr Q8H20M IV 03/30/25 11:30 03/31/25 05:51 120 MLS/HR Lisinopril 10 mg DAILY PO 03/31/25 10:00 03/31/25 10:31 10 MG Atorvastatin Calcium 10 mg HS PO 03/30/25 22:00 03/30/25 21:15 10 MG Diagnostic Test (Pha) 1 strip Q6HR 03/30/25 18:00 03/31/25 12:00 1 STRIP Insulin Human Regular Q6HR SC 03/30/25 18:00 03/31/25 12:44 20 UNITS Dextrose 50 ml UD PRN IV 03/30/25 14:15 Insulin Glargine 15 units BID SC 03/31/25 22:00 Laboratory Results Laboratory Tests 03/31/25 07:21 Chemistry Test 03/30/25 18:37 03/31/25 00:15 03/31/25 07:21 Calcium Level 8.3 mg/dL (8.7-10.4) L 8.4 mg/dL (8.7-10.4) L 8.3 mg/dL (8.7-10.4) L Albumin 3.0 g/dL (3.2-4.8) L Magnesium Level 1.7 mg/dL (1.6-2.6) Total Protein 6.0 g/dL (5.7-8.2) LFT Test 03/31/25 07:21 Alanine Aminotransferase (ALT) 49 U/L (7-40) H Alkaline Phosphatase 239 U/L (46-116) H Aspartate Amino Transferase (AST) 76 U/L (13-40) H Total Bilirubin 1.6 mg/dL (0.2-1.0) H Assessment/Plan Assessment/Plan I will renew his insulin and other home medications as well as prescribe him a glucometer. Meantime continue long-acting insulin with the Lantus twice a day as well as sliding scale insulin overnight. If he remains stable plan to discharge home in the morning. Discussed with the patient. Plan discussed with: Patient, Other My Orders Orders - JAMES FUENTES MD Procedure Category Date Status Time Insulin Lantus PHA 03/31/25 In Process (Glargine) (Lantus) 22:00 Consistent DIET 03/31/25 Transmitted Carb(Ccho)Diabetes Lunch * Seo Assistant CONS 03/31/25 Transmitted Consult Discontinue Tele DRAKE 03/31/25 In Process 12:25 Problem List: (1) DKA (diabetic ketoacidosis) Date of Service: Mar 31, 2025 Billing Provider: JAMES FUENTES MD Common Visit Codes: [id number]/OBS DISCH DAY <30MIN JAMES FUENTES MD Mar 31, 2025 16:01
[2025-03-31] MEDS: INSULIN LANTUS (GLARGINE) 1 /0.01ml (100units/ml) SC SCH (22:00)
[2025-04-01 01:00] VITALS: BP 111/73; PULSE 81; RESP 16; TEMP 98.2; O2SAT 96
[2025-04-01 05:00] VITALS: BP 100/59; PULSE 75; RESP 16; TEMP 98.2; O2SAT 96
[2025-04-01 08:00] VITALS: PULSE 91; RESP 18; O2SAT 96
[2025-04-01 09:00] VITALS: BP 121/77; PULSE 91; RESP 18; TEMP 98; O2SAT 96
[2025-04-01 09:58] VITALS: BP 112/72
[2025-04-01] MEDS: INSULIN LANTUS (GLARGINE) 1 /0.01ml (100units/ml) SC ONE (10:00)
== END 2025-04-01 14:45 | disposition home or self-care (01) | DRG 420 ==
LOC: ER 22:52 → OVERFLOW 03-30 07:55 → ER 03-30 08:01 → TELE-WESTW 03-31 02:18 → WEST WING 04-01 05:45
PROVIDERS: ADMIT Hospitalist; ATTEND Hospitalist
DX: E11.10 Type 2 diabetes mellitus with ketoacidosis without coma (principal); K74.60 Unspecified cirrhosis of liver; E78.5 Hyperlipidemia, unspecified; I10 Essential (primary) hypertension; F10.129 Alcohol abuse with intoxication, unspecified; F10.139 Alcohol abuse with withdrawal, unspecified; Z91.199 Patient's noncompliance with other medical treatment and regimen due to unspecified reason; Z79.4 Long term (current) use of insulin; Z88.0 Allergy status to penicillin
CPT/HCPCS: 36415; 36600; 71045; 80048; 80053; 80320; 82010; 82805; 82962; 83036; 83735; 83880; 83930; 84100; 84484; 85025; 96360; 96361; G0378; J1815

== ENCOUNTER 2025-05-08 23:22 | Inpatient (IN) | payer MEDICAID ==
[~2025-05-08] VITALS: Ht 172.7 cm; Wt 73.2 kg
[~2025-05-08 23:22] MED LIST: BLOO-200 XX; GABA-1250 PO; INSU100I4 SC; INSU300I5 SUBCUT; LANC-347 XX; LISI10TA34 PO; SIMV20TA20 PO
--- NOTE | 2025-05-09 00:05 | ED.PDOC ---
History of Present Illness HPI Comments 44 y/o M, with a history of DM w/neuropathy, alcohol-induced liver cirrhosis, and polysubstance abuse, is BIBA for c/c right hip pain s/p mechanical fall and injury. Patient reports falling and injuring his right hip after drinking at a bar, earlier, this evening. Denies any further associated symptoms at this time. 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 Allergies: Coded Allergies: Penicillins (Verified Allergy, Unknown, 03/29/25) Home Meds Active Scripts Blood Glucose Monitoring Suppl (Blood Glucose Monitoring W/Device) 1 Kit Kit, KIT XX TIDWMEALS, #1 Prov:JAMES FUENTES MD 03/31/25 Lancets (Freestyle Lancets) Lancets Mis, EA XX TIDWMEALS, #120 Prov:JAMES FUENTES MD 03/31/25 Insulin Lispro (Humalog Kwikpen) 100 Unit/Ml Inj, 6 UNIT SC TIDWMEALS, #10 INJ Prov:JAMES FUENTES MD 03/31/25 Insulin Glargine (Insulin Glargine Solostar) 300 Unit/Ml Inj, 15 UNITS SUBCUT BID, #10 INJ Prov:JAMES FUENTES MD 03/31/25 Gabapentin (Gabapentin) 300 Mg Cap, 1 CAP PO DAILY, #14 CAP Prov:JAMES FUENTES MD 03/31/25 Simvastatin (Simvastatin) 20 Mg Tab, 1 TAB PO HS, #30 TAB Prov:JAMES FUENTES MD 03/31/25 Lisinopril (Lisinopril) 10 Mg Tab, 1 TAB PO DAILY, #60 TAB Prov:JAMES FUENTES MD 03/31/25 Information Source: Patient, Emergency Med Personnel Mode of Arrival: EMS Severity: Moderate Timing: Hours Duration: Since onset Prehospital treatment: None Past Medical History PAST MEDICAL HISTORY: DM, HTN, Liver Social History Smoker: Non-Smoker Alcohol: Heavy Drugs: Denies Drug Use Lives In: Home All Other Systems: Reviewed and Negative (As per HPI) Physical Exam General Appearance: No Apparent Distress, Normal HEENT: Normal ENT Inspection, Pharynx Normal, TMs Normal Neck: Full Range of Motion, Non-Tender, Normal, Normal Inspection Respiratory: Chest Non-Tender, Lungs Clear, No Accessory Muscle Use, No Respiratory Distress, Normal Breath Sounds Cardiovascular: No Edema, No JVD, No Murmur, No Gallop, Normal Peripheral Pulses, Regular Rate/Rhythm Breast Exam: Deferred Gastrointestinal: No Organomegaly, Non Tender, No Pulsatile Mass, Normal Bowel Sounds, Soft Genitalia: Deferred Pelvic: Deferred Rectal: Deferred Extremities: No calf tenderness, Normal capillary refill, Normal inspection, Normal range of motion, Non-tender, No pedal edema Musculoskeletal : Apperance: Normal Neurologic: Alert, hospice care transitions coordinator II-XII nml as Tested, No Motor Deficits, Normal Affect, Normal Mood, No Sensory Deficits Cerebellar Function: Normal Reflexes: Normal Skin: Dry, Normal Color, Warm Lymphatic: No Adenopathy Was a procedure done? Was a procedure done?: No Differential Dx Considerations may include: fractures, contusions, sprain, among others X-Ray, Labs, Meds, VS Vital Signs Date Time Temp Pulse Resp B/P (MAP) Pulse Ox O2 Delivery O2 Flow Rate FiO2 05/09/25 00:40 100 05/08/25 23:29 98.8 120 20 110/68 98 98.8 Lab Test 05/09/25 00:30 05/08/25 23:35 Range/Units White Blood Count 4.2 L 4.4-10.8 10^3/uL Red Blood Count 4.05 L 4.5-5.90 10^6/uL Hemoglobin 15.0 13.5-17.5 g/dL Hematocrit 42.9 41.0-53.0 % Mean Corpuscular Volume 106.0 H 80.0-100.0 fL Mean Corpuscular Hemoglobin 37.0 H 28.0-32.0 pg Mean Corpuscular Hemoglobin Concent 34.9 32.0-36.0 g/dL Red Cell Distribution Width 13.5 11.8-14.3 % Platelet Count 73 L 140-450 10^3/uL Mean Platelet Volume 7.7 6.9-10.8 fL Neutrophils (%) (Auto) 64.5 37.0-80.0 % Lymphocytes (%) (Auto) 21.0 10.0-50.0 % Monocytes (%) (Auto) 12.3 H 0.0-12.0 % Eosinophils (%) (Auto) 1.6 0.0-7.0 % Basophils (%) (Auto) 0.6 0.0-2.0 % Neutrophils # (Auto) 2.7 1.6-8.6 10 ^3/uL Lymphocytes # (Auto) 0.9 0.4-5.4 10 ^3/uL Monocytes # (Auto) 0.5 0-1.3 10 ^3/uL Eosinophils # (Auto) 0.1 0-0.8 10 ^3/uL Basophils # (Auto) 0 0-0.2 10 ^3/uL Nucleated Red Blood Cells 0.2 % Sodium Level 137 136-145 mmol/L Potassium Level 4.0 3.5-5.1 mmol/L Chloride Level 103 98-107 mmol/L Carbon Dioxide Level 19 L 20-31 mmol/L Anion Gap 15 5-15 Blood Urea Nitrogen 10 9-23 mg/dL Creatinine 1.11 0.700-1.30 mg/dL Glomerular Filtration Rate Calc 83 >90 mL/min BUN/Creatinine Ratio 9.0 L 10.0-20.0 Serum Glucose 394 H 74-106 mg/dL Calcium Level 9.1 8.7-10.4 mg/dL Total Bilirubin 1.2 H 0.2-1.0 mg/dL Aspartate Amino Transferase (AST) 66 H 13-40 U/L Alanine Aminotransferase (ALT) 48 H 7-40 U/L Alkaline Phosphatase 243 H 46-116 U/L Total Protein 7.7 5.7-8.2 g/dL Albumin 3.6 3.2-4.8 g/dL POC Glucose 396 H 70-106 mg/dl Time of 1ST Reevaluation: 00:10 Reevaluation 1ST: Unchanged Patient Education/Counseling: Diagnosis, Treatment, Need For Follow Up Family Education/Counseling: No Family Present Comments Patient went to a bar and drank even though he has diabetes and cirrhosis. Had a fall but without much injuries. The workup here shows that he is in early DKA with hyperglycemia mild increasing anion gap and mild acidosis. He is noncompliant he will be admitted for further treatment and evaluation Additional Information Previous visits: 03/30/25 encounter for DKA The following tests were ordered, and results were reviewed by me: CXR, CMP, CBC Additional Information was gathered from interviewing the following independent historians: N/A I reviewed and agreed with the following test results read by other providers: CXR I discussed treatment and results with medical personnel and: patient SEPSIS Sepsis Screen Date sepsis recognized/suspect: May 08, 2025 Time Sepsis recognized/suspect: 2334 Recent Procedure: No On Antibiotic Therapy: No Respiratory Rate >20: No Heart Rate >90: No Temp<36 C (96.8 F) or >38.3 C: No SBP <90 or MAP <65 mmHG: No New Acute Mental Status Change: No Is the patient on CPAP, BIPAP,: No Physician Orders Chest Portable (05/08/25 23:59) Vital Signs Date Time Temp Pulse Resp B/P (MAP) Pulse Ox O2 Delivery O2 Flow Rate FiO2 05/09/25 00:40 100 05/08/25 23:29 98.8 120 20 110/68 98 98.8 Laboratory Tests Test 05/09/25 00:30 White Blood Count 4.2 10^3/uL (4.4-10.8) L Departure 1 Departure Time of Disposition: 03:07 Impression: Primary Impression: DKA (diabetic ketoacidosis) Additional Impressions: Noncompliance Alcoholism Falling Disposition: ADMITTED INPATIENT Admit to: Med Surg Condition: Serious Discharged With: Self Critical Care Note Critical Care Time?: No Stability Stability form required: No Heart Score Heart Score: Heart Score Response (Comments) Value History N/A 0 EKG N/A 0 Age N/A 0 Risk Factors N/A 0 Troponin N/A 0 Total 0 I personally scribed for ONEIL DOWNING MD ([email or web address]) on 05/09/25 at 00:05. Electronically submitted by Randy Aguero ([email or web address]). I personally scribed for ONEIL DOWNING MD ([email or web address]) on 05/09/25 at 00:06. Electronically submitted by Randy Aguero ([email or web address]). ONEIL DOWNING MD May 09, 2025 00:05
[2025-05-09 00:45] LABS: Hematocrit 42.9 % (41.0-53.0); Hemoglobin 15.0 g/dL (13.5-17.5); Mean Corpuscular Hemoglobin 37.0 pg (28.0-32.0); Mean Corpuscular Volume 106.0 fL (80.0-100.0); Nucleated Red Blood Cells % 0.2 %
[2025-05-09 01:03] LABS: Albumin 3.6 g/dL (3.2-4.8); Anion Gap 15 (5-15); BUN/Creatinine Ratio 9.0 (10.0-20.0); Bilirubin, Total 1.2 mg/dL (0.2-1.0); Blood Urea Nitrogen 10 mg/dL (9-23); Calcium 9.1 mg/dL (8.7-10.4); Chloride 103 mmol/L (98-107); Potassium 4.0 mmol/L (3.5-5.1); Sodium 137 mmol/L (136-145); Total Protein 7.7 g/dL (5.7-8.2)
--- NOTE | 2025-05-09 01:13 | DVH ---
CHEST RADIOGRAPH Indication: injury Technique: 1 view Comparison: XY CHEST XRAY 1 VIEW on DOS: 03/30/25 FINDINGS: Lines and Tubes: None Lungs/Pleura: Similar bilateral interstitial opacities. No focal consolidation, pleural effusion or p neumothorax. Cardiomediastinum: Unremarkable. Other: No acute osseous abnormality. IMPRESSION: 1. No consolidation or significant change from prior exam. Persistent interstitial opacities suggest ing edema or atypical infection.
[2025-05-09 01:15] LABS: Alanine Aminotransferase 48 U/L (7-40); Alkaline Phosphatase 243 U/L (46-116); Carbon Dioxide 19 mmol/L (20-31); Glucose 394 mg/dL (74-106)
[2025-05-09] MEDS ORDERED: DEXTROSE (50%) 50ML SYRG IV PRN ×2 (03:15→03:45)
[2025-05-09] MEDS: INSULIN LANTUS (GLARGINE) 1 /0.01ml (100units/ml) SC ONE (03:15)
[2025-05-09] MEDS ORDERED: INSULIN DRIP 100 UNIT/100ML 100 ML IV SCH (03:15)
[2025-05-09] MEDS ORDERED: ONDANSETRON HCL 4 MG/2 ML VIAL IV PRN (03:45)
[2025-05-09] MEDS ORDERED: DOCUSATE SOD 100 MG CAP PO PRN (03:45)
[2025-05-09] MEDS ORDERED: hydrALAZINE HCL 20 MG/ML VL IV PRN (03:45)
[2025-05-09] MEDS ORDERED: HYDROcodone-ACET 5/325MG TAB PO PRN (03:45)
[2025-05-09] MEDS ORDERED: IBUPROFEN 600 MG TAB PO PRN (04:00)
[2025-05-09] MEDS: SODIUM CHLORIDE 0.9% 1,000 ML IV SCH ×4 (04:00→18:17)
[2025-05-09] MEDS ORDERED: MORPHINE SULFATE INJ 2 MG/ml SYRG IV PRN (04:00)
[2025-05-09] MEDS ORDERED: NITROGLYCERIN 0.4 MG SL TAB SL PRN (04:00)
[2025-05-09] MEDS: InsuLIN REG 1unit/0.01ml Soln (100units/ml) SC SCH (04:00)
--- NOTE | 2025-05-09 04:01 | DVHHP2 ---
History of Present Illness Reason for Visit: Diabetes mellitus with hyperglycemia History of Present Illness The patient is a 44-year-old male with past medical history of alcohol abuse, diabetes mellitus, liver disease, hyperlipidemia, and hypertension who presented to [facility] ED with complaint of dizziness. Patient reports falling and injuring his right hip after drinking at a bar, earlier, this evening. Patient was seen and evaluated in the ED, laboratory data shows WBC 4.2, platelets 84820, sodium 137, potassium 4.0, BUN 10, creatinine 1.11, glucose 394, anion gap 15, calcium 9.1, total bilirubin 1.2, AST 66, ALT 48, alkaline phos 243, blood pressure 110/68, heart rate 100, temperature 98.8 F, O2 saturation 98% on room air. Chest x-ray showed no consolidation or significant change from prior exam; persistent interstitial opacities suggesting edema or atypical infection. Please see medication orders section in the computer. On my assessment, patient denied chest pain, no headache, no dizziness, no diaphoresis, no shortness of breaths, no diarrhea, no nausea, no vomiting, no fever, no chills. Patient was admitted for further evaluation and medical management. Past Medical History DM, HTN, HLD, Liver cirrhosis Past Surgical History Denies all surgeries Family History Reviewed, noncontributory to the management of this case. Past Social History The patient lives at home, drinks alcohol heavily, denies smoking or illicit drugs abuse. Review of Systems Constitutional: Yes: Weakness; No: Fever, Chills, Sweats, Malaise, Other Eyes: No: Pain, Vision change, Conjunctivae inflammation, Eyelid inflammation, Other, Redness ENT: No: Ear pain, Ear discharge, Nose pain, Nose discharge, Nose congestion, Mouth pain, Mouth swelling, Throat pain, Throat swelling, Other Respiratory: No: Cough, Dry, Shortness of breath, SOB with excertion, Wheezing, Hemoptysis, Pleuritic Pain, Sputum, Wheezing, Other Cardiovascular: No: Chest Pain, Palpitations, Orthopnea, Paroxysmal Noc. Dyspnea, Edema, Lt Headedness, Other Gastrointestinal: No: Nausea, Vomiting, Abdominal Pain, Diarrhea, Constipation, Melena, Hematochezia, Other Genitourinary: No Dysuria, No Frequency, No Incontinence, No Hematuria, No Retention, No Other Musculoskeletal: other (Hip pain); No: neck pain, shoulder pain, arm pain, back pain, hand pain, leg pain, foot pain Skin: No: Rash, Lesions, Jaundice, Bruising, Other Neurological: Other (Dizziness); No: Weakness, Numbness, Incoordination, Change in speech, Confusion, Seizures Allergies: Coded Allergies: Penicillins (Verified Allergy, Unknown, 03/29/25) Medications Current Medications Medications Dose Ordered Sig/Rod Route Start Time Stop Time Status Last Admin Dose Admin Sodium Chloride 1,000 ml @ 500 mls/hr Q2H IV 05/09/25 03:15 05/09/25 07:14 Sodium Chloride 1,000 ml @ 250 mls/hr Q4H IV 05/09/25 07:15 05/09/25 09:14 Sodium Chloride 1,000 ml @ 150 mls/hr Q6H40M IV 05/09/25 09:15 Insulin Glargine 15 units BID@0700,2200 SC 05/09/25 07:00 UNV Famotidine 20 mg Q12HR IV 05/09/25 10:00 UNV Atorvastatin Calcium 10 mg HS PO 05/09/25 22:00 UNV Hydralazine HCl 10 mg Q6HP PRN IV 05/09/25 03:45 UNV Diagnostic Test (Pha) 1 strip IQ4HR 05/09/25 04:00 UNV Insulin Human Regular IQ4HR SC 05/09/25 04:00 UNV Dextrose 50 ml UD PRN IV 05/09/25 03:45 UNV Acetaminophen/ Hydrocodone Bitart 1 tab Q4HP PRN PO 05/09/25 03:45 UNV Ondansetron HCl 4 mg Q4HP PRN IV 05/09/25 03:45 UNV Docusate Sodium 100 mg BIDPRN PRN PO 05/09/25 03:45 UNV Ibuprofen 600 mg Q6HP PRN PO 05/09/25 04:00 UNV Nitroglycerin 0.4 mg Q5MINP PRN SL 05/09/25 04:00 UNV Morphine Sulfate 2 mg Q30M PRN IV 05/09/25 04:00 UNV Exam Vital Signs Vital Signs Date Time Temp Pulse Resp B/P (MAP) Pulse Ox O2 Delivery O2 Flow Rate FiO2 05/09/25 03:56 98.3 96 16 122/75 (91) 95 98.3 General Appearance: Alert, Oriented X3, Cooperative, No acute distress HEENT: Atraumatic, PERRLA, EOMI, Mucous membr. moist/pink Respiratory: Normal air movement Cardiovascular: Regular rate, Normal S1, Normal S2, No murmurs Abdominal: Normal bowel sounds, Soft, No tenderness, No hepatospenomegaly, No masses Extremities: No clubbing, No cyanosis, No edema, Normal pulses, No tenderness/swelling Skin: No rashes, No breakdown, No significant lesion Neuro: Normal speech, Normal tone, Sensation intact, Cranial nerves 3-12 NL, Reflexes 2+, Other (Generalized weakness) Psych/Mental Status: Mental status NL, Mood NL Labs/Xrays Labs Test 05/09/25 00:30 05/08/25 23:35 Range/Units White Blood Count 4.2 L 4.4-10.8 10^3/uL Red Blood Count 4.05 L 4.5-5.90 10^6/uL Hemoglobin 15.0 13.5-17.5 g/dL Hematocrit 42.9 41.0-53.0 % Mean Corpuscular Volume 106.0 H 80.0-100.0 fL Mean Corpuscular Hemoglobin 37.0 H 28.0-32.0 pg Mean Corpuscular Hemoglobin Concent 34.9 32.0-36.0 g/dL Red Cell Distribution Width 13.5 11.8-14.3 % Platelet Count 73 L 140-450 10^3/uL Mean Platelet Volume 7.7 6.9-10.8 fL Neutrophils (%) (Auto) 64.5 37.0-80.0 % Lymphocytes (%) (Auto) 21.0 10.0-50.0 % Monocytes (%) (Auto) 12.3 H 0.0-12.0 % Eosinophils (%) (Auto) 1.6 0.0-7.0 % Basophils (%) (Auto) 0.6 0.0-2.0 % Neutrophils # (Auto) 2.7 1.6-8.6 10 ^3/uL Lymphocytes # (Auto) 0.9 0.4-5.4 10 ^3/uL Monocytes # (Auto) 0.5 0-1.3 10 ^3/uL Eosinophils # (Auto) 0.1 0-0.8 10 ^3/uL Basophils # (Auto) 0 0-0.2 10 ^3/uL Nucleated Red Blood Cells 0.2 % Sodium Level 137 136-145 mmol/L Potassium Level 4.0 3.5-5.1 mmol/L Chloride Level 103 98-107 mmol/L Carbon Dioxide Level 19 L 20-31 mmol/L Anion Gap 15 5-15 Blood Urea Nitrogen 10 9-23 mg/dL Creatinine 1.11 0.700-1.30 mg/dL Glomerular Filtration Rate Calc 83 >90 mL/min BUN/Creatinine Ratio 9.0 L 10.0-20.0 Serum Glucose 394 H 74-106 mg/dL Calcium Level 9.1 8.7-10.4 mg/dL Total Bilirubin 1.2 H 0.2-1.0 mg/dL Aspartate Amino Transferase (AST) 66 H 13-40 U/L Alanine Aminotransferase (ALT) 48 H 7-40 U/L Alkaline Phosphatase 243 H 46-116 U/L Total Protein 7.7 5.7-8.2 g/dL Albumin 3.6 3.2-4.8 g/dL POC Glucose 396 H 70-106 mg/dl PATIENT: RINKU LORENZO ACCT: [id number] UNIT: [id number] : 1980 LOC: ER ROOM / BED: / AGE / SEX: 44 / M ADM STATUS: REG ER SERVICE 4550 ORDERING PHYSICIAN: ONEIL DOWNING MD PROCEDURE(s): CXRP - CHEST PORTABLE REASON: injury ORDER NUMBER(s): [id number], ACCESSION NUMBER(s): [id number] CHEST RADIOGRAPH Indication: injury Technique: 1 view Comparison: XY CHEST XRAY 1 VIEW on DOS: 03/30/25 FINDINGS: Lines and Tubes: None Lungs/Pleura: Similar bilateral interstitial opacities. No focal consolidation, pleural effusion or pneumothorax. Cardiomediastinum: Unremarkable. Other: No acute osseous abnormality. IMPRESSION: 1. No consolidation or significant change from prior exam. Persistent interstitial opacities suggesting edema or atypical infection. SEPSIS Sepsis Screen Date sepsis recognized/suspect: May 08, 2025 Time Sepsis recognized/suspect: 2334 Recent Procedure: No On Antibiotic Therapy: No Respiratory Rate >20: No Heart Rate >90: No Temp<36 C (96.8 F) or >38.3 C: No SBP <90 or MAP <65 mmHG: No New Acute Mental Status Change: No Is the patient on CPAP, BIPAP,: No Physician Orders Chest Portable (05/08/25 23:59) Insulin Drip Protocol (05/09/25 ) Sodium Chloride 0.9% (05/09/25 03:15) Sodium Chloride 0.9% (05/09/25 07:15) Sodium Chloride 0.9% (05/09/25 09:15) Neurological Assessment (05/09/25 03:08) Vs/Hemodynamics .PER UNIT PROTOCOL (05/09/25 03:08) Insulin Lantus (Glargine) (Lantus) (05/09/25 07:00) Famotidine Injection (Pepcid Injection) (05/09/25 10:00) Consistent Carb(Ccho)Diabetes (05/09/25 Breakfast) Complete Blood Count (05/09/25 03:42) Comprehensive Metabolic Panel (05/09/25 03:42) Atorvastatin (Lipitor) (05/09/25 22:00) Hydralazine Injection (Apresoline Inject (05/09/25 03:45) Glucose Blood (Accu-Chek Comfort Curve T (05/09/25 04:00) Insulin R (Human) (Insulin R) (05/09/25 04:00) Dextrose 50% Syringe (05/09/25 03:45) Allergies (05/09/25 03:42) Code Status (05/09/25 03:42) Oxygen Per Hour (05/09/25 03:42) Hydrocodone-Acet 5/325mg Tab (Hamilton 5/32 (05/09/25 03:45) Ondansetron Hcl (Zofran) (05/09/25 03:45) Docusate Sodium Capsule (Colace Capsule) (05/09/25 03:45) Fall Risk Precautions In Place QSHIFT (05/09/25 03:42) Complete Blood Count (05/10/25 04:00) Comprehensive Metabolic Panel (05/10/25 04:00) Condition: Serious (05/09/25 03:42) Maintain Bed Rest (05/09/25 03:42) Sequential Compression Device (05/09/25 ) Ibuprofen Tablet (Motrin Tablet) (05/09/25 04:00) Admit (05/09/25 03:58) Nitroglycerin Sublingual (Ntrostat Subli (05/09/25 04:00) Morphine Sulfate Injection (05/09/25 04:00) Stat Ekg For Chest Pain (05/09/25 03:58) Notify Of Changes From Base (05/09/25 03:58) Blunger For 24 Hours (05/09/25 03:58) Emergency Dysrhythmia Protocol (05/09/25 03:58) Rhythm Strips Once Every Shift (05/09/25 03:58) Oxygen By Nasal Cannula (05/09/25 03:58) Vital Signs Date Time Temp Pulse Resp B/P (MAP) Pulse Ox O2 Delivery O2 Flow Rate FiO2 05/09/25 03:56 98.3 96 16 122/75 (91) 95 98.3 05/09/25 00:40 100 05/08/25 23:29 98.8 120 20 110/68 98 98.8 Laboratory Tests Test 05/09/25 00:30 White Blood Count 4.2 10^3/uL (4.4-10.8) L Assessment/Plan Assessment/Plan Diabetes mellitus with hyperglycemia Noncompliance Fall with injury Thrombocytopenia Elevated liver enzymes Generalized weakness Plan 1. Admit to telemetry unit 2. Breathing treatment 3. Pain control management 4. Management of fluids and electrolytes 5. Consultation for hospitalist 6. Diagnostic tests chest x-ray 7. DVT prophylaxis-on SCDs 8. Repeat labs CBC, CMP in a.m. 9. Continue with current medical management 10. Treatment plan discussed with patient and RN. Patient verbalized understandi dalton. Plan discussed with: Patient, Other (RN) My Orders Orders - TANVIR VASQUEZ DNP Procedure Category Date Status Time Insulin Lantus PHA 05/09/25 Logged (Glargine) (Lantus) 07:00 Famotidine Injection PHA 05/09/25 Logged (Pepcid Injection) 10:00 Consistent DIET 05/09/25 Transmitted Carb(Ccho)Diabetes Breakfast Complete Blood Count LAB 05/09/25 Logged 03:42 Comprehensive LAB 05/09/25 Logged Metabolic Panel 03:42 Atorvastatin (Lipitor) PHA 05/09/25 Logged 22:00 Hydralazine Injection PHA 05/09/25 Logged (Apresoline Inject 03:45 Glucose Blood [facility] 05/09/25 Logged (Accu-Chek Comfort 04:00 Insulin R (Human) PHA 05/09/25 Logged (Insulin R) 04:00 Dextrose 50% Syringe [facility] 05/09/25 Logged 03:45 Allergies [facility] 05/09/25 In Process 03:42 Code Status CODE 05/09/25 Transmitted 03:42 Oxygen Per Hour RT 05/09/25 Transmitted 03:42 Hydrocodone-Acet [facility] 05/09/25 Logged 5/325mg Tab (Hamilton 03:45 Ondansetron Hcl [facility] 05/09/25 Logged (Zofran) 03:45 Docusate Sodium [facility] 05/09/25 Logged Capsule (Colace 03:45 Fall Risk Precautions [facility] 05/09/[address] 03:42 Complete Blood Count LAB 05/10/25 Verified 04:00 Comprehensive LAB 05/10/25 Verified Metabolic Panel 04:00 Condition: Serious [facility] 05/09/25 In Process 03:42 Maintain Bed Rest [facility] 05/09/25 In Process 03:42 Sequential [facility] 05/09/25 In Process Compression Device Ibuprofen Tablet [facility] 05/09/25 Logged (Motrin Tablet) 04:00 Admit ADMIT 05/09/25 Transmitted 03:58 Nitroglycerin [facility] 05/09/25 Transmitted Sublingual (Ntrostat 04:00 Morphine Sulfate [facility] 05/09/25 Transmitted Injection 04:00 Stat Ekg For Chest [facility] 05/09/25 Transmitted Pain 03:58 Notify Md Of Changes [facility] 05/09/25 Transmitted From Base 03:58 Blunger For [facility] 05/09/25 Transmitted 24 Hours 03:58 Emergency Dysrhythmia [facility] 05/09/25 Transmitted Protocol 03:58 Rhythm Strips Once [facility] 05/09/25 Transmitted Every Shift 03:58 Oxygen By Nasal 05/09/25 Transmitted Cannula 03:58 Problem List: (1) Diabetes mellitus with hyperglycemia (2) Noncompliance (3) Fall with injury (4) Thrombocytopenia (5) Elevated liver enzymes (6) Generalized weakness Date of Service: May 09, 2025 Billing Provider: TANVIR VASQUEZ DNP Common Visit Codes: [id number] INP/OBS CARE (HIGH) TANVIR VASQUEZ DNP May 09, 2025 04:01
[2025-05-09] MEDS: ACCU-CHEK COMFORT CURVE STRIP VI SCH (04:09)
[2025-05-09 04:10] VITALS: PULSE 99; RESP 13; O2SAT 94
[2025-05-09 04:28] LABS: Hematocrit 44.0 % (41.0-53.0); Hemoglobin 15.8 g/dL (13.5-17.5); Mean Corpuscular Hemoglobin 38.1 pg (28.0-32.0); Mean Corpuscular Volume 106.3 fL (80.0-100.0); Nucleated Red Blood Cells % 0.1 %
[2025-05-09] MEDS ORDERED: ACCU-CHEK COMFORT CURVE STRIP VI SCH (04:30)
[2025-05-09 04:40] LABS: Albumin 3.6 g/dL (3.2-4.8); Anion Gap 16 (5-15); BUN/Creatinine Ratio 9.4 (10.0-20.0); Calcium 9.5 mg/dL (8.7-10.4); Chloride 105 mmol/L (98-107); Potassium 3.7 mmol/L (3.5-5.1); Sodium 138 mmol/L (136-145); Total Protein 7.8 g/dL (5.7-8.2)
[2025-05-09 04:41] LABS: Bilirubin, Total 1.0 mg/dL (0.2-1.0)
[2025-05-09 04:52] LABS: Alanine Aminotransferase 48 U/L (7-40); Alkaline Phosphatase 248 U/L (46-116); Blood Urea Nitrogen 9 mg/dL (9-23); Carbon Dioxide 17 mmol/L (20-31); Glucose 334 mg/dL (74-106)
[2025-05-09 06:01] VITALS: BP 132/87; PULSE 87; RESP 12; O2SAT 93
[2025-05-09] MEDS: INSULIN LANTUS (GLARGINE) 1 /0.01ml (100units/ml) SC SCH (06:42)
[2025-05-09 08:53] VITALS: PULSE 102; RESP 16; O2SAT 92
[2025-05-09] MEDS: FAMOTIDINE (10MG/ML) 2ML VL IV SCH (10:24)
[2025-05-09] MEDS ORDERED: InsuLIN REG 1unit/0.01ml Soln (100units/ml) ONE (16:12)
--- NOTE | 2025-05-09 17:58 | DVHPN2 ---
Subjective Patient is seen at bedside, doing better Reviewed: H&P Changes from previous H/P or p: No Changes General: Per HPI Eyes: No Pain, No Vision change, No Conjunctivae inflammation, No Eyelid inflammation, No Other, No Redness ENT: No Ear pain, No Ear discharge, No Nose pain, No Nose discharge, No Nose congestion, No Mouth pain, No Mouth swelling, No Throat pain, No Throat swelling, No Other Cardiovascular: No Chest Pain, No Palpitations, No Orthopnea, No Paroxysmal Noc. Dyspnea, No Edema, No Lt Headedness, No Other Respiratory: No Cough, No Dry, No Shortness of breath, No SOB with excertion, No Wheezing, No Hemoptysis, No Pleuritic Pain, No Sputum, No Other Gastrointestinal: No Nausea, No Vomiting, No Abdominal Pain, No Diarrhea, No Constipation, No Melena, No Hematochezia, No Other Genitourinary: No Dysuria, No Frequency, No Incontinence, No Hematuria, No Retention, No Other Musculoskeletal: other (Hip pain); No neck pain, No shoulder pain, No arm pain, No back pain, No hand pain, No leg pain, No foot pain Skin: No Rash, No Lesions, No Jaundice, No Bruising, No Other Objective Vitals Vital Signs Date Time Temp Pulse Resp B/P (MAP) Pulse Ox O2 Delivery O2 Flow Rate FiO2 05/09/25 15:42 87 16 132/85 (101) 95 05/09/25 08:53 Room Air* 0 21 05/09/25 08:05 97.9 97.9 Exam GEN: Healthy appearing, well-developed, NAD. HEENT: NC/AT; MMM. CV: RRR, no m/r/g. LUNGS: CTAB, no w/r/c. ABD: Soft, NT/ND, NBS, no masses or organomegaly. EXT: skin Warm, well perfused. no rashes. No clubbing, cyanosis, or edema. NEURO: Ambulating with no limitations. No focal deficits. Medications Current Medications Medications Dose Ordered Sig/Rod Route Start Time Stop Time Status Last Admin Dose Admin Sodium Chloride 1,000 ml @ 150 mls/hr Q6H40M IV 05/09/25 09:15 05/09/25 16:04 150 MLS/HR Insulin Glargine 15 units BID@0700,2200 SC 05/09/25 07:00 05/09/25 06:42 15 UNITS Famotidine 20 mg Q12HR IV 05/09/25 10:00 05/09/25 10:24 20 MG Atorvastatin Calcium 10 mg HS PO 05/09/25 22:00 Hydralazine HCl 10 mg Q6HP PRN IV 05/09/25 03:45 Diagnostic Test (Pha) 1 strip IQ4HR 05/09/25 04:00 05/09/25 16:10 1 STRIP Insulin Human Regular IQ4HR SC 05/09/25 04:00 05/09/25 16:10 12 UNITS Dextrose 50 ml UD PRN IV 05/09/25 03:45 Acetaminophen/ Hydrocodone Bitart 1 tab Q4HP PRN PO 05/09/25 03:45 Ondansetron HCl 4 mg Q4HP PRN IV 05/09/25 03:45 Docusate Sodium 100 mg BIDPRN PRN PO 05/09/25 03:45 Ibuprofen 600 mg Q6HP PRN PO 05/09/25 04:00 Nitroglycerin 0.4 mg Q5MINP PRN SL 05/09/25 04:00 Morphine Sulfate 2 mg Q30M PRN IV 05/09/25 04:00 Laboratory Results Laboratory Tests 05/09/25 04:14 Chemistry Test 05/09/25 00:30 05/09/25 04:14 Albumin 3.6 g/dL (3.2-4.8) 3.6 g/dL (3.2-4.8) Calcium Level 9.1 mg/dL (8.7-10.4) 9.5 mg/dL (8.7-10.4) Total Protein 7.7 g/dL (5.7-8.2) 7.8 g/dL (5.7-8.2) LFT Test 05/09/25 00:30 05/09/25 04:14 Alanine Aminotransferase (ALT) 48 U/L (7-40) H 48 U/L (7-40) H Alkaline Phosphatase 243 U/L (46-116) H 248 U/L (46-116) H Aspartate Amino Transferase (AST) 66 U/L (13-40) H 64 U/L (13-40) H Total Bilirubin 1.2 mg/dL (0.2-1.0) H 1.0 mg/dL (0.2-1.0) Labs and/or images reviewed: Labs reviewed by me, Image(s) reviewed by me Assessment/Plan Assessment/Plan 44-year-old male with past medical history of alcohol abuse, diabetes mellitus, liver disease, hyperlipidemia, and hypertension who presented to [facility] ED with complaint of dizziness. Patient reports falling and injuring his right hip after drinking at a bar, earlier, this evening. 05/09: Patient endorses that he only had 1 beer, but alcohol level Ativan was not collected, on admit patient had hyperglycemia osmolality not measured. Likely mixed of alcohol intoxication and diabetes with hyperglycemia causing intravascular volume depletion. Leading to dizziness and fall. As he also has terrible peripheral neuropathy. Diabetes with hyperglycemia , with peripheral neuropathy Alcohol intoxication, poisoning unable to rule out Acute alcoholic hepatitis possible Status post fall due to above History of alcohol dependence Alcoholic liver cirrhosis Thrombocytopenia, due to above Hyperlipidemia Hypertension Plan: Continue home meds Aggressive sliding scale insulin q.4 GI prophylaxis Pepcid 20 IV b.i.d. Pain control prn analgesia IV fluids 100 cc an hour Continue other home medications, continue home Lantus 15 units b.i.d. Continue CIWA monitoring for alcohol withdrawal q.4h Tele Full code Plan discussed with: Patient Date of Service: May 09, 2025 Billing Provider: RENETTA MCKEON MD Common Visit Codes: [id number] INP/OBS CARE(HIGH) RENETTA MCKEON MD May 09, 2025 17:58
[2025-05-09 19:30] VITALS: RESP 17; O2SAT 96
[2025-05-09 22:17] VITALS: BP 149/87; PULSE 86; RESP 20; TEMP 97.9; O2SAT 97
[2025-05-09 22:18] VITALS: PULSE 82; RESP 19; O2SAT 94
[2025-05-09] MEDS ORDERED: GABAPENTIN 100 MG CAP ONE (22:28)
[2025-05-09] MEDS: ATORVASTATIN 20 MG TAB PO SCH (22:29)
[2025-05-09] MEDS: GABAPENTIN 100 MG CAP PO SCH (22:29)
[2025-05-10 05:00] VITALS: BP 119/75; PULSE 85; RESP 20; TEMP 97.8; O2SAT 97
[2025-05-10 08:00] VITALS: PULSE 75
[2025-05-10 08:14] LABS: Hematocrit 40.4 % (41.0-53.0); Hemoglobin 14.4 g/dL (13.5-17.5); Mean Corpuscular Hemoglobin 37.9 pg (28.0-32.0); Mean Corpuscular Volume 106.1 fL (80.0-100.0); Nucleated Red Blood Cells % 0.1 %
[2025-05-10 08:27] LABS: Alanine Aminotransferase 39 U/L (7-40); Anion Gap 12 (5-15); BUN/Creatinine Ratio 10.9 (10.0-20.0); Blood Urea Nitrogen 11 mg/dL (9-23); Calcium 8.7 mg/dL (8.7-10.4); Carbon Dioxide 23 mmol/L (20-31); Chloride 107 mmol/L (98-107); Sodium 142 mmol/L (136-145); Total Protein 6.4 g/dL (5.7-8.2)
[2025-05-10 08:30] LABS: Albumin 3.1 g/dL (3.2-4.8); Alkaline Phosphatase 219 U/L (46-116); Bilirubin, Total 1.3 mg/dL (0.2-1.0); Glucose 219 mg/dL (74-106); Potassium 3.5 mmol/L (3.5-5.1)
[2025-05-10 09:00] VITALS: BP 137/88; PULSE 81; RESP 18; TEMP 98.3; O2SAT 97
[2025-05-10 13:00] VITALS: BP 134/83; PULSE 83; RESP 18; TEMP 98.2; O2SAT 96
--- NOTE | 2025-05-10 13:06 | DVHPN2 ---
Subjective Patient is seen at bedside, doing better Reviewed: H&P Changes from previous H/P or p: No Changes General: Per HPI Eyes: No Pain, No Vision change, No Conjunctivae inflammation, No Eyelid inflammation, No Other, No Redness ENT: No Ear pain, No Ear discharge, No Nose pain, No Nose discharge, No Nose congestion, No Mouth pain, No Mouth swelling, No Throat pain, No Throat swelling, No Other Cardiovascular: No Chest Pain, No Palpitations, No Orthopnea, No Paroxysmal Noc. Dyspnea, No Edema, No Lt Headedness, No Other Respiratory: No Cough, No Dry, No Shortness of breath, No SOB with excertion, No Wheezing, No Hemoptysis, No Pleuritic Pain, No Sputum, No Other Gastrointestinal: No Nausea, No Vomiting, No Abdominal Pain, No Diarrhea, No Constipation, No Melena, No Hematochezia, No Other Genitourinary: No Dysuria, No Frequency, No Incontinence, No Hematuria, No Retention, No Other Musculoskeletal: other (Hip pain); No neck pain, No shoulder pain, No arm pain, No back pain, No hand pain, No leg pain, No foot pain Skin: No Rash, No Lesions, No Jaundice, No Bruising, No Other Objective Vitals Vital Signs Date Time Temp Pulse Resp B/P (MAP) Pulse Ox O2 Delivery O2 Flow Rate FiO2 05/10/25 08:00 75 05/10/25 05:00 97.8 20 119/75 (90) 97 97.8 05/09/25 22:18 Room Air* 0 21 Intake/Output Intake and Output 05/10/25 07:00 Intake Total 2275 ml Balance 2275 ml Intake Oral 250 ml IV Total 2025 ml # Voids 1 Exam GEN: Healthy appearing, well-developed, NAD. HEENT: NC/AT; MMM. CV: RRR, no m/r/g. LUNGS: CTAB, no w/r/c. ABD: Soft, NT/ND, NBS, no masses or organomegaly. EXT: skin Warm, well perfused. no rashes. No clubbing, cyanosis, or edema. NEURO: Ambulating with no limitations. No focal deficits. Medications Current Medications Medications Dose Ordered Sig/Rod Route Start Time Stop Time Status Last Admin Dose Admin Insulin Glargine 15 units BID@0700,2200 SC 05/09/25 07:00 05/10/25 06:06 15 UNITS Famotidine 20 mg Q12HR IV 05/09/25 10:00 05/10/25 09:32 20 MG Atorvastatin Calcium 10 mg HS PO 05/09/25 22:00 05/09/25 22:29 10 MG Hydralazine HCl 10 mg Q6HP PRN IV 05/09/25 03:45 Diagnostic Test (Pha) 1 strip IQ4HR 05/09/25 04:00 05/10/25 11:13 1 STRIP Insulin Human Regular IQ4HR SC 05/09/25 04:00 05/10/25 11:17 12 UNITS Dextrose 50 ml UD PRN IV 05/09/25 03:45 Acetaminophen/ Hydrocodone Bitart 1 tab Q4HP PRN PO 05/09/25 03:45 Ondansetron HCl 4 mg Q4HP PRN IV 05/09/25 03:45 Docusate Sodium 100 mg BIDPRN PRN PO 05/09/25 03:45 Ibuprofen 600 mg Q6HP PRN PO 05/09/25 04:00 Nitroglycerin 0.4 mg Q5MINP PRN SL 05/09/25 04:00 Morphine Sulfate 2 mg Q30M PRN IV 05/09/25 04:00 Sodium Chloride 1,000 ml @ 75 mls/hr [id number] IV 05/09/25 18:00 05/10/25 07:20 75 MLS/HR Gabapentin 100 mg TID PO 05/09/25 22:00 05/09/25 22:29 100 MG Laboratory Results Laboratory Tests 05/10/25 06:38 Chemistry Test 05/10/25 06:38 Albumin 3.1 g/dL (3.2-4.8) L Calcium Level 8.7 mg/dL (8.7-10.4) Total Protein 6.4 g/dL (5.7-8.2) LFT Test 05/10/25 06:38 Alanine Aminotransferase (ALT) 39 U/L (7-40) Alkaline Phosphatase 219 U/L (46-116) H Aspartate Amino Transferase (AST) 52 U/L (13-40) H Total Bilirubin 1.3 mg/dL (0.2-1.0) H Labs and/or images reviewed: Labs reviewed by me, Image(s) reviewed by me Assessment/Plan Assessment/Plan 44-year-old male with past medical history of alcohol abuse, diabetes mellitus, liver disease, hyperlipidemia, and hypertension who presented to [facility] ED with complaint of dizziness. Patient reports falling and injuring his right hip after drinking at a bar, earlier, this evening. 05/09: Patient endorses that he only had 1 beer, but alcohol level Ativan was not collected, on admit patient had hyperglycemia osmolality not measured. Likely mixed of alcohol intoxication and diabetes with hyperglycemia causing intravascular volume depletion. Leading to dizziness and fall. As he also has terrible peripheral neuropathy. debility rising, we will give bag for quadrant ultrasound. Continuing Lantus 15 b.i.d. as home med. Scale to continue. Patient feeling improved. If right upper quadrant ultrasound negative/benign we will start discharge planning to continue insulin and follow up with PCP. Diabetes with hyperglycemia , with peripheral neuropathy Alcohol intoxication, poisoning unable to rule out Acute alcoholic hepatitis possible Status post fall due to above History of alcohol dependence Alcoholic liver cirrhosis Thrombocytopenia, due to above Hyperlipidemia Hypertension Plan: Continue home meds Aggressive sliding scale insulin q.4 GI prophylaxis Pepcid 20 IV b.i.d. Pain control prn analgesia IV fluids 100 cc an hour Continue other home medications, continue home Lantus 15 units b.i.d. Continue CIWA monitoring for alcohol withdrawal q.4h Tele Full code Plan discussed with: Patient My Orders Orders - RENETTA MCKEON MD Procedure Category Date Status Time Sodium Chloride 0.9% PHA 05/09/25 In Process 18:00 Gabapentin Capsule PHA 05/09/25 In Process (Neurontin Capsule) 22:00 Date of Service: May 10, 2025 Billing Provider: RENETTA MCKEON MD Common Visit Codes: [id number] INP/OBS CARE(HIGH) RENETTA MCKEON MD May 10, 2025 13:06
[2025-05-10] MEDS ORDERED: GABAPENTIN 100 MG CAP ONE (13:22)
--- NOTE | 2025-05-10 15:17 | DVHPN2 ---
Subjective Patient is seen at bedside, doing better Reviewed: H&P Changes from previous H/P or p: No Changes General: Per HPI Eyes: No Pain, No Vision change, No Conjunctivae inflammation, No Eyelid inflammation, No Other, No Redness ENT: No Ear pain, No Ear discharge, No Nose pain, No Nose discharge, No Nose congestion, No Mouth pain, No Mouth swelling, No Throat pain, No Throat swelling, No Other Cardiovascular: No Chest Pain, No Palpitations, No Orthopnea, No Paroxysmal Noc. Dyspnea, No Edema, No Lt Headedness, No Other Respiratory: No Cough, No Dry, No Shortness of breath, No SOB with excertion, No Wheezing, No Hemoptysis, No Pleuritic Pain, No Sputum, No Other Gastrointestinal: No Nausea, No Vomiting, No Abdominal Pain, No Diarrhea, No Constipation, No Melena, No Hematochezia, No Other Genitourinary: No Dysuria, No Frequency, No Incontinence, No Hematuria, No Retention, No Other Musculoskeletal: other (Hip pain); No neck pain, No shoulder pain, No arm pain, No back pain, No hand pain, No leg pain, No foot pain Skin: No Rash, No Lesions, No Jaundice, No Bruising, No Other Objective Vitals Vital Signs Date Time Temp Pulse Resp B/P (MAP) Pulse Ox O2 Delivery O2 Flow Rate FiO2 05/10/25 13:00 98.2 83 18 134/83 (100) 96 98.2 05/09/25 22:18 Room Air* 0 21 Intake/Output Intake and Output 05/10/25 07:00 Intake Total 2275 ml Balance 2275 ml Intake Oral 250 ml IV Total 2025 ml # Voids 1 Exam GEN: Healthy appearing, well-developed, NAD. HEENT: NC/AT; MMM. CV: RRR, no m/r/g. LUNGS: CTAB, no w/r/c. ABD: Soft, NT/ND, NBS, no masses or organomegaly. EXT: skin Warm, well perfused. no rashes. No clubbing, cyanosis, or edema. NEURO: Ambulating with no limitations. No focal deficits. Medications Current Medications Medications Dose Ordered Sig/Rod Route Start Time Stop Time Status Last Admin Dose Admin Insulin Glargine 15 units BID@0700,2200 SC 05/09/25 07:00 05/10/25 06:06 15 UNITS Famotidine 20 mg Q12HR IV 05/09/25 10:00 05/10/25 09:32 20 MG Atorvastatin Calcium 10 mg HS PO 05/09/25 22:00 05/09/25 22:29 10 MG Hydralazine HCl 10 mg Q6HP PRN IV 05/09/25 03:45 Diagnostic Test (Pha) 1 strip IQ4HR 05/09/25 04:00 05/10/25 11:13 1 STRIP Insulin Human Regular IQ4HR SC 05/09/25 04:00 05/10/25 11:17 12 UNITS Dextrose 50 ml UD PRN IV 05/09/25 03:45 Acetaminophen/ Hydrocodone Bitart 1 tab Q4HP PRN PO 05/09/25 03:45 Ondansetron HCl 4 mg Q4HP PRN IV 05/09/25 03:45 Docusate Sodium 100 mg BIDPRN PRN PO 05/09/25 03:45 Ibuprofen 600 mg Q6HP PRN PO 05/09/25 04:00 Nitroglycerin 0.4 mg Q5MINP PRN SL 05/09/25 04:00 Morphine Sulfate 2 mg Q30M PRN IV 05/09/25 04:00 Sodium Chloride 1,000 ml @ 75 mls/hr [id number] IV 05/09/25 18:00 05/10/25 07:20 75 MLS/HR Gabapentin 100 mg TID PO 05/09/25 22:00 05/09/25 22:29 100 MG Laboratory Results Laboratory Tests 05/10/25 06:38 Chemistry Test 05/10/25 06:38 Albumin 3.1 g/dL (3.2-4.8) L Calcium Level 8.7 mg/dL (8.7-10.4) Total Protein 6.4 g/dL (5.7-8.2) LFT Test 05/10/25 06:38 Alanine Aminotransferase (ALT) 39 U/L (7-40) Alkaline Phosphatase 219 U/L (46-116) H Aspartate Amino Transferase (AST) 52 U/L (13-40) H Total Bilirubin 1.3 mg/dL (0.2-1.0) H Labs and/or images reviewed: Labs reviewed by me, Image(s) reviewed by me Assessment/Plan Assessment/Plan 44-year-old male with past medical history of alcohol abuse, diabetes mellitus, liver disease, hyperlipidemia, and hypertension who presented to [facility] ED with complaint of dizziness. Patient reports falling and injuring his right hip after drinking at a bar, earlier, this evening. 05/09: Patient endorses that he only had 1 beer, but alcohol level Ativan was not collected, on admit patient had hyperglycemia osmolality not measured. Likely mixed of alcohol intoxication and diabetes with hyperglycemia causing intravascular volume depletion. Leading to dizziness and fall. As he also has terrible peripheral neuropathy. 05/10 Tbili rising, we will get RUQ quadrant ultrasound. Continuing Lantus 15 b.i.d. as home med. Scale to continue. Patient feeling improved. If right upper quadrant ultrasound negative/benign we will start discharge planning to continue insulin and follow up with PCP. Diagnosis: Diabetes with hyperglycemia , with peripheral neuropathy Alcohol intoxication, poisoning unable to rule out Acute alcoholic hepatitis possible alcohol withdrawal, concern, ruling out Status post fall due to above History of alcohol dependence Alcoholic liver cirrhosis Thrombocytopenia, due to above Macrocytosis Monocytosis Hyperlipidemia Hypertension Plan: Continue home meds Aggressive sliding scale insulin q.4 GI prophylaxis Pepcid 20 IV b.i.d. Pain control prn analgesia IV fluids 100 cc an hour Continue other home medications, continue home Lantus 15 units b.i.d. Continue CIWA monitoring for alcohol withdrawal q.4h Tele Full code Plan discussed with: Patient My Orders Orders - RENETTA MCKEON MD Procedure Category Date Status Time Sodium Chloride 0.9% PHA 05/09/25 In Process 18:00 Gabapentin Capsule PHA 05/09/25 In Process (Neurontin Capsule) 22:00 Abdomen Limited US 05/10/25 Verified 15:10 Date of Service: May 10, 2025 Billing Provider: RENETTA MCKEON MD Common Visit Codes: [id number] INP/OBS CARE(HIGH) RENETTA MCKEON MD May 10, 2025 15:16
--- NOTE | 2025-05-11 10:58 | DVHDS2 ---
Discharge Summary Date of Admission May 09, 2025 at 03:58 Date of Discharge: May 10, 2025 Labs/Diagnostic Data: Laboratory Results Test 05/10/25 11:05 05/10/25 06:38 POC Glucose 290 mg/dl (70-106) White Blood Count 4.0 10^3/uL (4.4-10.8) Red Blood Count 3.80 10^6/uL (4.5-5.90) Hemoglobin 14.4 g/dL (13.5-17.5) Hematocrit 40.4 % (41.0-53.0) Mean Corpuscular Volume 106.1 fL (80.0-100.0) Mean Corpuscular Hemoglobin 37.9 pg (28.0-32.0) Mean Corpuscular Hemoglobin Concent 35.7 g/dL (32.0-36.0) Red Cell Distribution Width 13.6 % (11.8-14.3) Platelet Count 73 10^3/uL (140-450) Mean Platelet Volume 7.7 fL (6.9-10.8) Neutrophils (%) (Auto) 60.8 % (37.0-80.0) Lymphocytes (%) (Auto) 22.5 % (10.0-50.0) Monocytes (%) (Auto) 12.7 % (0.0-12.0) Eosinophils (%) (Auto) 3.3 % (0.0-7.0) Basophils (%) (Auto) 0.7 % (0.0-2.0) Neutrophils # (Auto) 2.5 10 ^3/uL (1.6-8.6) Lymphocytes # (Auto) 0.9 10 ^3/uL (0.4-5.4) Monocytes # (Auto) 0.5 10 ^3/uL (0-1.3) Eosinophils # (Auto) 0.1 10 ^3/uL (0-0.8) Basophils # (Auto) 0 10 ^3/uL (0-0.2) Nucleated Red Blood Cells 0.1 % Sodium Level 142 mmol/L (136-145) Potassium Level 3.5 mmol/L (3.5-5.1) Chloride Level 107 mmol/L (98-107) Carbon Dioxide Level 23 mmol/L (20-31) Anion Gap 12 (5-15) Blood Urea Nitrogen 11 mg/dL (9-23) Creatinine 1.01 mg/dL (0.700-1.30) Glomerular Filtration Rate Calc 93 mL/min (>90) BUN/Creatinine Ratio 10.9 (10.0-20.0) Serum Glucose 219 mg/dL (74-106) Calcium Level 8.7 mg/dL (8.7-10.4) Total Bilirubin 1.3 mg/dL (0.2-1.0) Aspartate Amino Transferase (AST) 52 U/L (13-40) Alanine Aminotransferase (ALT) 39 U/L (7-40) Alkaline Phosphatase 219 U/L (46-116) Total Protein 6.4 g/dL (5.7-8.2) Albumin 3.1 g/dL (3.2-4.8) Other Laboratory Tests 05/10/25 06:38 Brief Hx & Hospital Course: 44-year-old male with past medical history of alcohol abuse, diabetes mellitus, liver disease, hyperlipidemia, and hypertension who presented to [facility] ED with complaint of dizziness. Patient reports falling and injuring his right hip after drinking at a bar, earlier, this evening. 05/09: Patient endorses that he only had 1 beer, but alcohol level Ativan was not collected, on admit patient had hyperglycemia osmolality not measured. Likely mixed of alcohol intoxication and diabetes with hyperglycemia causing intravascular volume depletion. Leading to dizziness and fall. As he also has terrible peripheral neuropathy. 05/10 Tbili rising, we will get RUQ quadrant ultrasound. Continuing Lantus 15 b.i.d. as home med. Scale to continue. Patient feeling improved. If right upper quadrant ultrasound negative/benign we will start discharge planning to continue insulin and follow up with PCP. Diagnosis: Diabetes with hyperglycemia , with peripheral neuropathy Alcohol intoxication, poisoning unable to rule out Acute alcoholic hepatitis possible alcohol withdrawal, concern, ruling out Status post fall due to above History of alcohol dependence Alcoholic liver cirrhosis Thrombocytopenia, due to above Macrocytosis Monocytosis Hyperlipidemia Hypertension plan: left AMA. RN notified of risks. patient accepted all risks and left AMA. Condition at Discharge: Undetermined Final Diagnosis/Problems List Diabetes with hyperglycemia , with peripheral neuropathy Alcohol intoxication, poisoning unable to rule out Acute alcoholic hepatitis possible alcohol withdrawal, concern, ruling out Status post fall due to above History of alcohol dependence Alcoholic liver cirrhosis Thrombocytopenia, due to above Macrocytosis Monocytosis Hyperlipidemia Hypertension Discharge Disposition: AMA Discharge Instruct/Medications Scheduled Gabapentin (Gabapentin), 1 CAP PO DAILY Insulin Glargine (Insulin Glargine Solostar), 15 UNITS SUBCUT BID Insulin Lispro (Humalog Kwikpen), 6 UNIT SC TIDWMEALS Lisinopril (Lisinopril), 1 TAB PO DAILY Simvastatin (Simvastatin), 1 TAB PO HS Durable Medical Equipment Blood Glucose Monitoring Suppl (Blood Glucose Monitoring W/Device), KIT XX TIDWMEALS, (DME) Lancets (Freestyle Lancets), EA XX TIDWMEALS, (DME) Discharge Statement: "Patient was advised to return to the ER or call 911 if any headaches, dizziness, shortness of breath, chest pain, abdominal pain, bleeding, fevers, or worsening of medical condition. Patient was counseled about treatment plan, medications, possible side effects, patientverbalized understanding. All questions were answered to the best of my ability. This discharge took greater then 30 minutes in planning, reviewing documentation, counseling the patient, and discussing with other team members." ASSESSMENT ASSESSMENT Assessment Date of Service: May 10, 2025 Billing Provider: RENETTA MCKEON MD Common Visit Codes: NOT BILLABLE RENETTA MCKEON MD May 11, 2025 10:58
--- NOTE | 2025-05-13 09:59 | ECG ---
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
== END 2025-05-10 15:50 | disposition left against medical advice (07) | DRG 420 ==
LOC: EDBD 23:22 → ER 23:22 → OVERFLOW 05-09 03:58 → TELE-WESTW 05-09 22:17
PROVIDERS: ADMIT Student in an Organized Health Care Education/Training Program; ATTEND Student in an Organized Health Care Education/Training Program
DX: E11.00 Type 2 diabetes mellitus with hyperosmolarity without nonketotic hyperglycemic-hyperosmolar coma (NKHHC) (principal); D69.6 Thrombocytopenia, unspecified; K70.30 Alcoholic cirrhosis of liver without ascites; E11.40 Type 2 diabetes mellitus with diabetic neuropathy, unspecified; D75.89 Other specified diseases of blood and blood-forming organs; D72.821 Monocytosis (symptomatic); E78.5 Hyperlipidemia, unspecified; E11.10 Type 2 diabetes mellitus with ketoacidosis without coma; F10.229 Alcohol dependence with intoxication, unspecified; K70.10 Alcoholic hepatitis without ascites; I10 Essential (primary) hypertension; R74.8 Abnormal levels of other serum enzymes; Y90.9 Presence of alcohol in blood, level not specified; E86.9 Volume depletion, unspecified; Z53.29 Procedure and treatment not carried out because of patient's decision for other reasons; Z88.0 Allergy status to penicillin; Z91.199 Patient's noncompliance with other medical treatment and regimen due to unspecified reason; Z79.4 Long term (current) use of insulin
CPT/HCPCS: 36415; 71045; 80053; 82962; 85025; 93005; 96360; G0378; J1815; J2405; J3490

== ENCOUNTER 2025-05-14 19:35 | Inpatient (IN) | payer MEDICAID ==
[~2025-05-14] VITALS: Ht 172.7 cm; Wt 78.5 kg
--- NOTE | 2025-05-14 19:54 | ED.PDOC ---
History of present illness HPI Comments 44-year-old male who came to ER via EMS for hyperglycemia. Patient recently discharged here 4 days ago, diagnosed with 1. Diabetes with hyperglycemia , with peripheral neuropathy , 2. Alcohol intoxication, poisoning unable to rule out, 3. Acute alcoholic hepatitis possible, 4. alcohol withdrawal, concern, ruling out, 5. Status post fall due to above, 6. History of alcohol dependence, 7. Alcoholic liver cirrhosis, 8. Thrombocytopenia, due to above, 9. Macrocytosis, 10. Monocytosis, 11. Hyperlipidemia, 12. Hypertension. Patient is signed AMA during that time. Patient has been taking his insulin for the past 2 days, he has been feeling generally weak, dizzy, with episodes of nausea and vomiting. Blood sugar on scene was 450. Patient also recently admitted here last March for diabetic ket oacidosis, and alcoholic liver cirrhosis. REVIEW OF SYSTEMS: General: No fever, no chills, or fatigue HEENT: No sore throat, no earache, no congestion, no neck pain. Cardiac: No chest pain. No palpitations. Lungs: No shortness of breath, no cough. GI: (+) nausea, (+) vomiting, no diarrhea, no constipation, no abdominal pain : No dysuria, frequency, or urgency. No hematuria. Musculoskeletal: No joint pain , no joint swelling, no extremity edema. Skin: No rash, no itching. Neuro: No headache, no dizziness, (+) weakness EXAM: General: Awake, alert and oriented. No acute distress. Skin: Skin in warm, dry and intact. Appropriate color for ethnicity. HEENT: The head is normocephalic and atraumatic. Conjunctivae are clear without exudates or hemorrhage. Sclera is non-icteric. EOM are intact. No signs of nystagmus. Eyelids are normal in appearance without swelling or lesions. Oral mucosa is pink and moist Neck: The neck is supple with normal range of motion. No JVD. Cardiac: Heart rate and rhythm are normal. No murmurs, gallops, or rubs are auscultated. Respiratory: No signs of respiratory distress. Lung sounds are clear in all lobes bilaterally without rales, rhonchi, or wheezes. Abdominal: Abdomen is soft, non-tender without distention. Bowel sounds are present and normoactive in all four quadrants. Extremities: Upper and lower extremities are atraumatic in appearance without deformity or edema. Neurological: The patient is awake, alert and oriented to person, place, and time with normal speech. Speech is clear. There is no facial asymmetry. Psychiatric: Appropriate mood and affect. Good judgement and insight Chief Complaint: Hyperglycemia Time Seen by MD: 19:45 History of present illness: [employer] Notes Allergies: Coded Allergies: Penicillins (Verified Allergy, Unknown, 03/29/25) Home Meds Active Scripts Blood Glucose Monitoring Suppl (Blood Glucose Monitoring W/Device) 1 Kit Kit, KI T XX TIDWMEALS, #1 Prov:JAMES FUENTES MD 03/31/25 Lancets (Freestyle Lancets) Lancets Mis, EA XX TIDWMEALS, #120 Prov:AJMES FUENTES MD 03/31/25 Insulin Lispro (Humalog Kwikpen) 100 Unit/Ml Inj, 6 UNIT SC TIDWMEALS, #10 INJ Prov:JAMES FUENTES MD 03/31/25 Insulin Glargine (Insulin Glargine Solostar) 300 Unit/Ml Inj, 15 UNITS SUBCUT BID, #10 INJ Prov:JAMES FUENTES MD 03/31/25 Gabapentin (Gabapentin) 300 Mg Cap, 1 CAP PO DAILY, #14 CAP Prov:JAMES FUENTES MD 03/31/25 Simvastatin (Simvastatin) 20 Mg Tab, 1 TAB PO HS, #30 TAB Prov:JAMES FUENTES MD 03/31/25 Lisinopril (Lisinopril) 10 Mg Tab, 1 TAB PO DAILY, #60 TAB Prov:JAMES FUENTES MD 03/31/25 Information Source: Patient, Spouse Mode of Arrival: EMS Timing: Days Duration: Since onset Prehospital treatment: Accucheck Cascade: Shaky, Sweaty Symptoms: Anxious, Shaky, Sweaty History of: Diabetes, Insulin use Associated signs and symptoms: Abdominal Pain, Nausea, Vomiting Past Medical History PAST MEDICAL HISTORY: DM, HTN, Liver Past Medical History (Other): Diabetic ketoacidosis, alcoholic liver cirrhosis Surgical History: Denies all surgeries Family History Family History: Reviewed,noncontributory to illness Social History Smoker: Non-Smoker Alcohol: Heavy Drugs: Denies Drug Use Lives In: Home Was a procedure done? Was a procedure done?: No Differential Diagnosis (DM) Differential Diagnosis: Dehydration, DKA, Electrolyte Abnormality, Encephalopathy, Gastritis, Gastroenteritis, Hyperglycemia X-Ray, Labs, Meds, VS Vital Signs Date Time Temp Pulse Resp B/P (MAP) Pulse Ox O2 Delivery O2 Flow Rate FiO2 05/14/25 23:16 97.8 97 16 129/73 (91) 92 97.8 05/14/25 19:35 98.9 101 20 186/78 98 98.9 Lab Test 05/14/25 21:07 05/14/25 20:11 05/14/25 19:52 Range/Units Troponin I High Sensitivity < 3 L < 3 L </=54 ng/L Blood Gas Specimen Type Arterial Blood Gas Sample Site Right radial Blood Gas Patient Temperature 37.0 Arterial Blood Date Drawn [id number] Arterial Blood pH 7.390 7.350-7.450 Arterial Blood Partial Pressure CO2 28.9 L 35.0-48.0 mmHg Arterial Blood Partial Pressure O2 66.7 L 83.0-108.0 mmHg Arterial Blood HCO3 17.1 L 21.0-28.0 mmol/L Arterial Blood Oxygen Saturation 90.8 L 94.0-98.0 % Arterial Blood Base Excess -6.4 L -2.0-3.0 mmol/L Arterial Blood Oxyhemoglobin 89.4 L 94.0-98.0 % Arterial Blood Carboxyhemoglobin 0.8 0.5-1.5 % Arterial Blood Methemoglobin 0.7 0.0-1.5 % Anmol Test Modified Blood Gas Total Hemoglobin 14.00 13.5-17.5 g/dL Blood Gas Modality Room air FiO2 % 21.0 White Blood Count 3.0 L 4.4-10.8 10^3/uL Red Blood Count 3.69 L 4.5-5.90 10^6/uL Hemoglobin 13.6 13.5-17.5 g/dL Hematocrit 38.9 L 41.0-53.0 % Mean Corpuscular Volume 105.3 H 80.0-100.0 fL Mean Corpuscular Hemoglobin 36.8 H 28.0-32.0 pg Mean Corpuscular Hemoglobin Concent 35.0 32.0-36.0 g/dL Red Cell Distribution Width 13.4 11.8-14.3 % Platelet Count 85 L 140-450 10^3/uL Mean Platelet Volume 7.5 6.9-10.8 fL Neutrophils (%) (Auto) 51.1 37.0-80.0 % Lymphocytes (%) (Auto) 33.7 10.0-50.0 % Monocytes (%) (Auto) 10.0 0.0-12.0 % Eosinophils (%) (Auto) 3.3 0.0-7.0 % Basophils (%) (Auto) 1.9 0.0-2.0 % Neutrophils # (Auto) 1.5 L 1.6-8.6 10 ^3/uL Lymphocytes # (Auto) 1.0 0.4-5.4 10 ^3/uL Monocytes # (Auto) 0.3 0-1.3 10 ^3/uL Eosinophils # (Auto) 0.1 0-0.8 10 ^3/uL Basophils # (Auto) 0.1 0-0.2 10 ^3/uL Nucleated Red Blood Cells 0.3 % Sodium Level 138 136-145 mmol/L Potassium Level 4.5 3.5-5.1 mmol/L Chloride Level 101 98-107 mmol/L Carbon Dioxide Level 20 20-31 mmol/L Anion Gap 17 H 5-15 Blood Urea Nitrogen 12 9-23 mg/dL Creatinine 1.00 0.700-1.30 mg/dL Glomerular Filtration Rate Calc 95 >90 mL/min BUN/Creatinine Ratio 12.0 10.0-20.0 Serum Glucose 438 #*H 74-106 mg/dL Calcium Level 8.4 L 8.7-10.4 mg/dL Magnesium Level 1.9 1.6-2.6 mg/dL Total Bilirubin 0.9 0.2-1.0 mg/dL Aspartate Amino Transferase (AST) 109 H 13-40 U/L Alanine Aminotransferase (ALT) 61 H 7-40 U/L Alkaline Phosphatase 240 H 46-116 U/L Total Protein 7.0 5.7-8.2 g/dL Albumin 3.4 3.2-4.8 g/dL Beta-Hydroxybutyric Acid 0.950 H < 0.4 mmol/L Plasma/Serum Blood Alcohol 124.7 H <10 mg/dL Current Medications Medications (Trade) Dose Ordered Sig/Rod Route Start Time Stop Time Status Last Admin Sodium Chloride 1,000 ml @ 1,000 mls/hr Q1H ONCE IV 05/14/25 19:45 05/14/25 20:44 DC 05/14/25 20:10 Sodium Chloride 1,000 ml @ 1,000 mls/hr Q1H ONCE IV 05/14/25 22:15 05/14/25 23:14 DC 05/15/25 00:25 Sodium Chloride 1,000 ml @ 250 mls/hr Q4H ONCE IV 05/14/25 22:15 05/15/25 02:14 05/15/25 00:25 Insulin Human Regular (InsuLIN R) 7 units ONCE ONCE IV 05/14/25 22:15 05/14/25 22:21 DC 05/15/25 00:19 Diagnostic Test (Pha) (Accu-Chek Comfort Curve T) 1 strip ONCE ONCE 05/14/25 21:15 05/14/25 22:21 DC 05/15/25 00:13 Diagnostic Test (Pha) (Accu-Chek Comfort Curve T) 1 strip ONCE STAT 05/14/25 22:15 05/14/25 22:21 DC 05/15/25 00:13 Time of 1ST Reevaluation: 19:50 Reevaluation 1ST: Unchanged Patient Education/Counseling: Need For Follow Up Family Education/Counseling: No Family Present SEPSIS Sepsis Screen Physician Orders Abg W/ Co-Ox (05/14/25 19:43) Saline Lock (05/14/25 19:43) Urinalysis (05/14/25 19:43) Electrocardigram (05/14/25 19:45) Chest Xray 1 View (05/14/25 19:45) Electrocardigram (05/14/25 20:45) Electrocardigram (05/14/25 22:45) Sodium Chloride 0.9% (05/14/25 22:15) Dextrose 50% Syringe (05/14/25 22:15) Dextrose 50% Syringe (05/14/25 22:15) Abdomen Limited (05/14/25 22:22) Vital Signs Date Time Temp Pulse Resp B/P (MAP) Pulse Ox O2 Delivery O2 Flow Rate FiO2 05/14/25 23:16 97.8 97 16 129/73 (91) 92 97.8 05/14/25 19:35 98.9 101 20 186/78 98 98.9 Laboratory Tests Test 05/14/25 19:52 White Blood Count 3.0 10^3/uL (4.4-10.8) L Medications Medications Dose Ordered Sig/Rod Route Start Time Stop Time Status Last Admin Dose Admin Diagnostic Test (Pha) 1 strip ONCE ONCE 05/14/25 21:15 05/14/25 22:21 DC 05/15/25 00:13 Diagnostic Test (Pha) 1 strip ONCE STAT 05/14/25 22:15 05/14/25 22:21 DC 05/15/25 00:13 Insulin Human Regular 7 units ONCE ONCE IV 05/14/25 22:15 05/14/25 22:21 DC 05/15/25 00:19 Sodium Chloride 1,000 ml @ 250 mls/hr Q4H ONCE IV 05/14/25 22:15 05/15/25 02:14 05/15/25 00:25 Sodium Chloride 1,000 ml @ 1,000 mls/hr Q1H ONCE IV 05/14/25 19:45 05/14/25 20:44 DC 05/14/25 20:10 Sodium Chloride 1,000 ml @ 1,000 mls/hr Q1H ONCE IV 05/14/25 22:15 05/14/25 23:14 DC 05/15/25 00:25 Departure 1 Departure Time of Disposition: 22:18 Impression: Primary Impression: DKA (diabetic ketoacidosis) Disposition: ADMITTED INPATIENT Condition: Serious Comments Patient admitted to hospitalist service for further treatment, evaluation and monitoring. Extensive evaluation was performed in attempt to identify or rule out: (See differential diagnosis section) The following tests were ordered, and results were reviewed by me and discussed with patient: (See diagnostic results section) The following test were independently interpreted by me: EKG Additional information was gathered from interviewing the following independent historians: EMS personnel Addressed an acute or chronic illness that poses a threat to life or bodily function: DKA Decision regarding hospitalization or escalation of hospital level of care: Risk and benefits of admission for further treatment of patient's condition was considered. Due to patient's current clinical condition, high risk of decline and poor outcome if discharged and need for further inpatient management and monitoring, patient will be admitted to the hospital. Discussed with patient. Drug therapy requiring intensive monitoring for toxicity: IV insulin Critical Care Note Critical Care Time?: Yes (45 min-critical care time only) Critical care comment: DKA Stability Stability form required: No Heart Score Heart Score: Heart Score Response (Comments) Value History N/A 0 EKG N/A 0 Age N/A 0 Risk Factors N/A 0 Troponin N/A 0 Total 0 I personally scribed for GRANT ROMERO MD ([email or web address]) on 05/14/25 at 19:54. Electronically submitted by Fito Brooks ([employer]). I personally scribed for GRANT ROMERO MD ([email or web address]) on 05/14/25 at 21:39. Electronically submitted by Fito Brooks ([employer]). GRANT ROMERO MD May 14, 2025 19:54
[2025-05-14] MEDS: SODIUM CHLORIDE 0.9% 1,000 ML IV ONE (20:10)
[2025-05-14 20:21] LABS: Hematocrit 38.9 % (41.0-53.0); Hemoglobin 13.6 g/dL (13.5-17.5); Mean Corpuscular Hemoglobin 36.8 pg (28.0-32.0); Mean Corpuscular Volume 105.3 fL (80.0-100.0); Nucleated Red Blood Cells % 0.3 %
[2025-05-14 20:32] LABS: Base Excess -6.4 mmol/L (-2.0-3.0)
[2025-05-14 20:34] LABS: Albumin 3.4 g/dL (3.2-4.8); Anion Gap 17 (5-15); BUN/Creatinine Ratio 12.0 (10.0-20.0); Blood Urea Nitrogen 12 mg/dL (9-23); Chloride 101 mmol/L (98-107); Magnesium 1.9 mg/dL (1.6-2.6); Potassium 4.5 mmol/L (3.5-5.1); Sodium 138 mmol/L (136-145); Total Protein 7.0 g/dL (5.7-8.2)
[2025-05-14 20:35] LABS: Bilirubin, Total 0.9 mg/dL (0.2-1.0)
[2025-05-14 20:37] LABS: Alanine Aminotransferase 61 U/L (7-40); Alkaline Phosphatase 240 U/L (46-116); Calcium 8.4 mg/dL (8.7-10.4); Carbon Dioxide 20 mmol/L (20-31)
[2025-05-14 20:39] LABS: Glucose 438 mg/dL (74-106)
--- NOTE | 2025-05-14 21:21 | DVH ---
CHEST RADIOGRAPH Indication: chest pain Technique: Single frontal view of the chest was obtained Comparison: XY CHEST PORTABLE on DOS: 05/09/25, XY CHEST XRAY 1 VIEW on DOS: 03/30/25 FINDINGS: Lines and Tubes: None Lungs: No focal consolidation. Pleura: No effusion. No pneumothorax. Cardiomediastinal contours: Unremarkable Bones: No acute osseous abnormality. IMPRESSION: 1. No acute cardiopulmonary disease. 2. No significant change from 05/09/2025
[2025-05-14] MEDS ORDERED: DEXTROSE (50%) 50ML SYRG IV PRN ×2 (22:15)
--- NOTE | 2025-05-14 23:02 | DVH ---
INDICATION: RUQ TECHNIQUE: Multiple real-time sonographic images of the abdomen were obtained. COMPARISON: None FINDINGS: Increased echogenicity of the hepatic parenchyma consistent with steatosis. The liver measu res 13.3 cm. No intrahepatic biliary ductal dilatation is noted. The gallbladder wall measures 0.2 cm and is unremarkable. No gallstones sludge was noted in the gal lbladder. The common duct measures 0.37 cm and is unremarkable. No pericholecystic fluid is noted. Ultrasound Florez's sign The right kidney measures 13.3 cm. No hydronephrosis. The pancreas is not well visualized due to obscuration from bowel gas. IMPRESSION: 1. No sonographic evidence of acute cholecystitis. 2. Mobile sludge is noted in the gallbladder. 3. Hepatic steatosis.
--- NOTE | 2025-05-14 23:47 | DVHHPRES ---
Review of Systems Allergies: Coded Allergies: Penicillins (Verified Allergy, Unknown, 03/29/25) Medications Current Medications Medications Dose Ordered Sig/Rod Route Start Time Stop Time Status Last Admin Dose Admin Dextrose 50 ml PRN PRN IV 05/14/25 22:15 Dextrose 50 ml PRN PRN IV 05/14/25 22:15 Exam Vital Signs Vital Signs Date Time Temp Pulse Resp B/P (MAP) Pulse Ox O2 Delivery O2 Flow Rate FiO2 05/14/25 23:16 97.8 97 16 129/73 (91) 92 97.8 Labs/Xrays Labs Test 05/14/25 21:07 05/14/25 20:11 05/14/25 19:52 Range/Units Troponin I High Sensitivity < 3 L </=54 ng/L Blood Gas Specimen Type Arterial Blood Gas Sample Site Right radial Blood Gas Patient Temperature 37.0 Arterial Blood Date Drawn [id number] Arterial Blood pH 7.390 7.350-7.450 Arterial Blood Partial Pressure CO2 28.9 L 35.0-48.0 mmHg Arterial Blood Partial Pressure O2 66.7 L 83.0-108.0 mmHg Arterial Blood HCO3 17.1 L 21.0-28.0 mmol/L Arterial Blood Oxygen Saturation 90.8 L 94.0-98.0 % Arterial Blood Base Excess -6.4 L -2.0-3.0 mmol/L Arterial Blood Oxyhemoglobin 89.4 L 94.0-98.0 % Arterial Blood Carboxyhemoglobin 0.8 0.5-1.5 % Arterial Blood Methemoglobin 0.7 0.0-1.5 % Anmol Test Modified Blood Gas Total Hemoglobin 14.00 13.5-17.5 g/dL Blood Gas Modality Room air FiO2 % 21.0 White Blood Count 3.0 L 4.4-10.8 10^3/uL Red Blood Count 3.69 L 4.5-5.90 10^6/uL Hemoglobin 13.6 13.5-17.5 g/dL Hematocrit 38.9 L 41.0-53.0 % Mean Corpuscular Volume 105.3 H 80.0-100.0 fL Mean Corpuscular Hemoglobin 36.8 H 28.0-32.0 pg Mean Corpuscular Hemoglobin Concent 35.0 32.0-36.0 g/dL Red Cell Distribution Width 13.4 11.8-14.3 % Platelet Count 85 L 140-450 10^3/uL Mean Platelet Volume 7.5 6.9-10.8 fL Neutrophils (%) (Auto) 51.1 37.0-80.0 % Lymphocytes (%) (Auto) 33.7 10.0-50.0 % Monocytes (%) (Auto) 10.0 0.0-12.0 % Eosinophils (%) (Auto) 3.3 0.0-7.0 % Basophils (%) (Auto) 1.9 0.0-2.0 % Neutrophils # (Auto) 1.5 L 1.6-8.6 10 ^3/uL Lymphocytes # (Auto) 1.0 0.4-5.4 10 ^3/uL Monocytes # (Auto) 0.3 0-1.3 10 ^3/uL Eosinophils # (Auto) 0.1 0-0.8 10 ^3/uL Basophils # (Auto) 0.1 0-0.2 10 ^3/uL Nucleated Red Blood Cells 0.3 % Sodium Level 138 136-145 mmol/L Potassium Level 4.5 3.5-5.1 mmol/L Chloride Level 101 98-107 mmol/L Carbon Dioxide Level 20 20-31 mmol/L Anion Gap 17 H 5-15 Blood Urea Nitrogen 12 9-23 mg/dL Creatinine 1.00 0.700-1.30 mg/dL Glomerular Filtration Rate Calc 95 >90 mL/min BUN/Creatinine Ratio 12.0 10.0-20.0 Serum Glucose 438 #*H 74-106 mg/dL Calcium Level 8.4 L 8.7-10.4 mg/dL Magnesium Level 1.9 1.6-2.6 mg/dL Total Bilirubin 0.9 0.2-1.0 mg/dL Aspartate Amino Transferase (AST) 109 H 13-40 U/L Alanine Aminotransferase (ALT) 61 H 7-40 U/L Alkaline Phosphatase 240 H 46-116 U/L Total Protein 7.0 5.7-8.2 g/dL Albumin 3.4 3.2-4.8 g/dL Beta-Hydroxybutyric Acid 0.950 H < 0.4 mmol/L Plasma/Serum Blood Alcohol 124.7 H <10 mg/dL SEPSIS Sepsis Screen Date sepsis recognized/suspect: May 14, 2025 Time Sepsis recognized/suspect: 1935 Recent Procedure: No On Antibiotic Therapy: No Respiratory Rate >20: No Heart Rate >90: No Temp<36 C (96.8 F) or >38.3 C: No SBP <90 or MAP <65 mmHG: No New Acute Mental Status Change: No Is the patient on CPAP, BIPAP,: No Physician Orders Abg W/ Co-Ox (05/14/25 19:43) Saline Lock (05/14/25 19:43) Urinalysis (05/14/25 19:43) Electrocardigram (05/14/25 19:45) Chest Xray 1 View (05/14/25 19:45) Electrocardigram (05/14/25 20:45) Electrocardigram (05/14/25:45) Sodium Chloride 0.9% (05/14/25 22:15) Dextrose 50% Syringe (05/14/25 22:15) Dextrose 50% Syringe (05/14/25 22:15) Abdomen Limited (05/14/25 22:22) Admit (05/14/25 23:45) Oxygen By Nasal Cannula (05/14/25 23:45) Stat Ekg For Chest Pain (05/14/25 23:45) Notify Md Of Changes From Base (05/14/25 23:45) 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 (05/14/25 23:45) Emergency Dysrhythmia Protocol (05/14/25 23:45) Rhythm Strips Once Every Shift (05/14/25 23:45) Vital Signs Date Time Temp Pulse Resp B/P (MAP) Pulse Ox O2 Delivery O2 Flow Rate FiO2 05/14/25 23:16 97.8 97 16 129/73 (91) 92 97.8 05/14/25 19:35 98.9 101 20 186/78 98 98.9 Laboratory Tests Test 05/14/25 19:52 White Blood Count 3.0 10^3/uL (4.4-10.8) L Medications Medications Dose Ordered Sig/Rod Route Start Time Stop Time Status Last Admin Dose Admin Sodium Chloride 1,000 ml @ 1,000 mls/hr Q1H ONCE IV 05/14/25 19:45 05/14/25 20:44 DC 05/14/25 20:10 1,000 MLS/HR Assessment/Plan Assessment/Plan Assessment/plan # DKA -IV fluids -Insulin Protocol -potassium chloride -mg, p - urine studies # Acute alcohol intoxication -thiamine -UDS # WIthdrawal -prn # HTN Crisis -resolved # Hyperlipidemia # Liver Cirrhosis # My Orders Orders - KEYSHA RAMIREZ RESIDENT Procedure Category Date Status Time Admit ADMIT 05/14/25 Transmitted 23:45 Oxygen By Nasal RT 05/14/25 Transmitted Cannula 23:45 Stat Ekg For Chest [facility] 05/14/25 Transmitted Pain 23:45 Notify Md Of Changes [facility] 05/14/25 Transmitted From Base 23:45 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
[2025-05-15] MEDS: ACCU-CHEK COMFORT CURVE STRIP VI STA (00:13)
[2025-05-15] MEDS: ACCU-CHEK COMFORT CURVE STRIP VI ONE (00:13)
[2025-05-15] MEDS: InsuLIN REG 1unit/0.01ml Soln (100units/ml) IV ONE ×2 (00:19→03:51)
[2025-05-15] MEDS: SODIUM CHLORIDE 0.9% 1,000 ML IV ONE ×2 (00:25)
[2025-05-15] MEDS ORDERED: LORazepam 2MG/ML-1ML VIAL IV PRN ×2 (00:30→12:30)
[2025-05-15] MEDS ORDERED: DEXTROSE (50%) 50ML SYRG IV PRN ×3 (00:30→12:30)
[2025-05-15] MEDS: PIPERACILLIN-TAZO 4.5GM 100 ML IV ONE (01:03)
[2025-05-15] MEDS: THIAMINE 100mg/ml INJ (200mg/2ml VIAL) IV ONE (01:03)
[2025-05-15 01:09] LABS: Urine Protein, UAD Negative (Negative)
--- NOTE | 2025-05-15 01:32 | DVHHPRES ---
History of Present Illness Resident Creating Document: FAIZAN ROLON RESIDENT History of Present Illness Shahid Huff is a 44-year-old male with past medical history of diabetes, hypertension, hyperlipidemia, alcohol abuse, liver disease who presented to the ED with the chief complaints of generalized body pains, mostly in the abdomen, legs which is 10/10 in instensity, associated with nausea, vomiting, chills, generalized weakness, dizziness since the last 2 days. Patient also states shortness of breath, mild chest pain. Patient states he has been taking his insulin. Patient was admitted last March for DKA, alcoholic liver cirrhosis. Patient was recently discharged 4 days ago with similar complaints and left AMA at that time. Patient states that his last drink was at 5:00 p.m. yesterday. Patient is on oxygen. At present CIWA score is 6. Patient states having tactile hallucinations, the vision, dizziness, denies any auditory, visual h allucinations. Patient is admitted for further management. Surgical history: Right heel surgery Family history: Both parents have diabetes Personal history: Patient denies smoking, drinks 5-6 beers per day, use marijuana. Lives with: Family PCP: Review of Systems Constitutional: Yes: Chills, Weakness, Other (Dizziness,); No: Fever, Sweats, Malaise Eyes: No: Pain, Vision change, Conjunctivae inflammation, Eyelid inflammation, Other, Redness ENT: No: Ear pain, Ear discharge, Nose pain, Nose discharge, Nose congestion, Mouth pain, Mouth swelling, Throat pain, Throat swelling, Other Respiratory: Shortness of breath; No: Cough, Dry, SOB with excertion, Wheezing, Hemoptysis, Pleuritic Pain, Sputum, Wheezing, Other Cardiovascular: Chest Pain; No: Palpitations, Orthopnea, Paroxysmal Noc. Dyspnea, Edema, Lt Headedness, Other Gastrointestinal: Nausea, Vomiting, Abdominal Pain; No: Diarrhea, Constipation, Melena, Hematochezia, Other Genitourinary: No Dysuria, No Frequency, No Incontinence, No Hematuria, No Retention, No Other Musculoskeletal: No: other, neck pain, shoulder pain, arm pain, back pain, hand pain, leg pain, foot pain Skin: No: Rash, Lesions, Jaundice, Bruising, Other Neurological: No: Weakness, Numbness, Incoordination, Change in speech, Confusion, Seizures, Other Allergies: Coded Allergies: Penicillins (Verified Allergy, Unknown, 03/29/25) Medications Current Medications Medications Dose Ordered Sig/Rod Route Start Time Stop Time Status Last Admin Dose Admin Dextrose 50 ml PRN PRN IV 05/14/25 22:15 Dextrose 50 ml PRN PRN IV 05/14/25 22:15 Piperacillin Sod/ Tazobactam Sod 100 ml @ 25 mls/hr Q8HR IV 05/15/25 06:00 Lorazepam 1 mg Q5MINP PRN IV 05/15/25 00:30 Diagnostic Test (Pha) 1 strip IQ4HR 05/15/25 04:00 Insulin Human Regular IQ4HR SC 05/15/25 04:00 Dextrose 50 ml UD PRN IV 05/15/25 00:30 Exam Vital Signs Vital Signs Date Time Temp Pulse Resp B/P (MAP) Pulse Ox O2 Delivery O2 Flow Rate FiO2 05/15/25 00:15 Room Air* 0 21 05/14/25 23:52 97 20 96 05/14/25 23:16 97.8 129/73 (91) 97.8 Exam Pt is lying on bed General Appearance: Alert, Oriented X3, Cooperative, in moderate distress, generalized weakness HEENT: Atraumatic, Mucous membranes moist/pink Respiratory: Clear to auscultation, Normal air movement, No added sounds Cardiovascular: Regular rate, Normal S1, Normal S2, No murmurs Abdominal: Diffuse abdominal pain, mostly in the right upper quadrant, left upper quadrant Extremities: Mild bilateral pitting edema Skin: No Significant rash, except past surgical scars Neuro: Normal speech, sensorimotor deficits none Psych/Mental Status: Mental status NL, Mood NL Nurse was there as equipment processer storage during examination Labs/Xrays Labs Test 05/15/25 00:10 05/15/25 00:00 05/14/25 21:07 05/14/25 20:11 Range/Units POC Glucose 306 H 70-106 mg/dl Urine Color Light-yellow Yellow Urine Clarity Clear Clear Urine pH 5.5 5.0-9.0 Urine Specific [place] 1.023 1.001-1.035 Urine Protein Negative Negative Urine Ketones 1+ H Negative Urine Blood Negative Negative /uL Urine Nitrite Negative Negative Urine Bilirubin Negative Negative Urine Urobilinogen Normal Negative mg/dL Urine Leukocyte Esterase Negative Negative /uL Urine RBC 1 0 - 3 /hpf Urine Microscopic WBC < 1 0-3 /HPF Urine Squamous Epithelial Cells Few <5 /hpf Urine Bacteria None seen None Seen /hpf Urine Glucose 4+ H Normal mg/dL Troponin I High Sensitivity < 3 L </=54 ng/L Blood Gas Specimen Type Arterial Blood Gas Sample Site Right radial Blood Gas Patient Temperature 37.0 Arterial Blood Date Drawn [id number] Arterial Blood pH 7.390 7.350-7.450 Arterial Blood Partial Pressure CO2 28.9 L 35.0-48.0 mmHg Arterial Blood Partial Pressure O2 66.7 L 83.0-108.0 mmHg Arterial Blood HCO3 17.1 L 21.0-28.0 mmol/L Arterial Blood Oxygen Saturation 90.8 L 94.0-98.0 % Arterial Blood Base Excess -6.4 L -2.0-3.0 mmol/L Arterial Blood Oxyhemoglobin 89.4 L 94.0-98.0 % Arterial Blood Carboxyhemoglobin 0.8 0.5-1.5 % Arterial Blood Methemoglobin 0.7 0.0-1.5 % Anmol Test Modified Blood Gas Total Hemoglobin 14.00 13.5-17.5 g/dL Blood Gas Modality Room air FiO2 % 21.0 Test 05/14/25 19:52 Range/Units White Blood Count 3.0 L 4.4-10.8 10^3/uL Red Blood Count 3.69 L 4.5-5.90 10^6/uL Hemoglobin 13.6 13.5-17.5 g/dL Hematocrit 38.9 L 41.0-53.0 % Mean Corpuscular Volume 105.3 H 80.0-100.0 fL Mean Corpuscular Hemoglobin 36.8 H 28.0-32.0 pg Mean Corpuscular Hemoglobin Concent 35.0 32.0-36.0 g/dL Red Cell Distribution Width 13.4 11.8-14.3 % Platelet Count 85 L 140-450 10^3/uL Mean Platelet Volume 7.5 6.9-10.8 fL Neutrophils (%) (Auto) 51.1 37.0-80.0 % Lymphocytes (%) (Auto) 33.7 10.0-50.0 % Monocytes (%) (Auto) 10.0 0.0-12.0 % Eosinophils (%) (Auto) 3.3 0.0-7.0 % Basophils (%) (Auto) 1.9 0.0-2.0 % Neutrophils # (Auto) 1.5 L 1.6-8.6 10 ^3/uL Lymphocytes # (Auto) 1.0 0.4-5.4 10 ^3/uL Monocytes # (Auto) 0.3 0-1.3 10 ^3/uL Eosinophils # (Auto) 0.1 0-0.8 10 ^3/uL Basophils # (Auto) 0.1 0-0.2 10 ^3/uL Nucleated Red Blood Cells 0.3 % Sodium Level 138 136-145 mmol/L Potassium Level 4.5 3.5-5.1 mmol/L Chloride Level 101 98-107 mmol/L Carbon Dioxide Level 20 20-31 mmol/L Anion Gap 17 H 5-15 Blood Urea Nitrogen 12 9-23 mg/dL Creatinine 1.00 0.700-1.30 mg/dL Glomerular Filtration Rate Calc 95 >90 mL/min BUN/Creatinine Ratio 12.0 10.0-20.0 Serum Glucose 438 #*H 74-106 mg/dL Calcium Level 8.4 L 8.7-10.4 mg/dL Magnesium Level 1.9 1.6-2.6 mg/dL Total Bilirubin 0.9 0.2-1.0 mg/dL Aspartate Amino Transferase (AST) 109 H 13-40 U/L Alanine Aminotransferase (ALT) 61 H 7-40 U/L Alkaline Phosphatase 240 H 46-116 U/L Total Protein 7.0 5.7-8.2 g/dL Albumin 3.4 3.2-4.8 g/dL Beta-Hydroxybutyric Acid 0.950 H < 0.4 mmol/L Plasma/Serum Blood Alcohol 124.7 H <10 mg/dL SEPSIS Sepsis Screen Date sepsis recognized/suspect: May 14, 2025 Time Sepsis recognized/suspect: 0015 Recent Procedure: No On Antibiotic Therapy: No Respiratory Rate >20: No Heart Rate >90: Yes Temp<36 C (96.8 F) or >38.3 C: No SBP <90 or MAP <65 mmHG: No New Acute Mental Status Change: No Is the patient on CPAP, BIPAP,: No Physician Orders Abg W/ Co-Ox (05/14/25 19:43) Saline Lock (05/14/25 19:43) Electrocardigram (05/14/25:45) Chest Xray 1 View (05/14/25:45) Electrocardigram (05/14/25:45) Electrocardigram (05/14/25:45) Sodium Chloride 0.9% (05/14/25 22:15) Dextrose 50% Syringe (05/14/25 22:15) Dextrose 50% Syringe (05/14/25 22:15) Abdomen Limited (05/14/25:22) Admit (05/14/25:45) Oxygen By Nasal Cannula (05/14/25:45) Stat Ekg For Chest Pain (05/14/25:45) Notify Md Of Changes From Base (05/14/25:45) Mail Clerk For 24 Hours (05/14/25:45) Emergency Dysrhythmia Protocol (05/14/25:45) Rhythm Strips Once Every Shift (05/14/25 23:45) Magnesium (05/15/25 00:22) Phosphorus (05/15/25 00:22) Urinalysis (05/15/25 00:22) Drug Screen (05/15/25 00:22) Piperacillin-Tazo 4.5gm (Zosyn 4.5gm/100 (05/15/25 00:30) Piperacillin-Tazob 3.375gm (Zosyn 3.375g (05/15/25 06:00) Lactic Acid W/ Reflex Order (05/15/25 00:22) Mrsa Screen (05/15/25 00:22) Covid19 Antigen Patito (05/15/25 ) Lorazepam 2mg/Ml Inj (Ativan Inj) (05/15/25 00:30) Basic Metabolic Panel (05/15/25 00:22) Glucose Blood (Accu-Chek Comfort Curve T (05/15/25 04:00) Insulin R (Human) (Insulin R) (05/15/25 04:00) Dextrose 50% Syringe (05/15/25 00:30) Blood Culture (05/15/25 00:22) Vital Signs Date Time Temp Pulse Resp B/P (MAP) Pulse Ox O2 Delivery O2 Flow Rate FiO2 05/15/25 00:15 Room Air* 0 21 05/14/25 23:52 97 20 96 Room Air 9/19/25 23:16 97.8 97 16 129/73 (91) 92 97.8 05/14/25 19:35 98.9 101 20 186/78 98 98.9 Laboratory Tests Test 05/14/25 19:52 White Blood Count 3.0 10^3/uL (4.4-10.8) L Medications Medications Dose Ordered Sig/Rod Route Start Time Stop Time Status Last Admin Dose Admin Diagnostic Test (Pha) 1 strip ONCE ONCE 05/14/25 21:15 05/14/25 22:21 DC 05/15/25 00:13 1 STRIP Diagnostic Test (Pha) 1 strip ONCE STAT 05/14/25 22:15 05/14/25 22:21 DC 05/15/25 00:13 1 STRIP Insulin Human Regular 7 units ONCE ONCE IV 05/14/25 22:15 05/14/25 22:21 DC 05/15/25 00:19 7 UNITS Piperacillin Sod/ Tazobactam Sod 100 ml @ 100 mls/hr ONCE ONCE IV 05/15/25 00:30 05/15/25 01:29 05/15/25 01:03 100 MLS/HR Sodium Chloride 1,000 ml @ 250 mls/hr Q4H ONCE IV 05/14/25 22:15 05/15/25 02:14 05/15/25 00:25 250 MLS/HR Sodium Chloride 1,000 ml @ 1,000 mls/hr Q1H ONCE IV 05/14/25 19:45 05/14/25 20:44 DC 05/14/25 20:10 1,000 MLS/HR Sodium Chloride 1,000 ml @ 1,000 mls/hr Q1H ONCE IV 05/14/25 22:15 05/14/25 23:14 DC 05/15/25 00:25 1,000 MLS/HR Thiamine HCl 100 mg ONCE ONCE IV 05/15/25 00:30 05/15/25 00:45 DC 05/15/25 01:03 100 MG Assessment/Plan Assessment/Plan Assessment and plan # SIRS due to DKA ? Sepsis, source unknown # Mild DKA # diabetes mellitus : Hb A1c 11 - IV fluids -IV insulin protocol - IV potassium -magnesium, potassium -ABG -lactic acid - worsening anion gap, so started on insulin protocol -IV Zosyn -IV vancomycin # Acute alcohol intoxication - IV thiamine - IV folic acid - UDS - blood alcohol level # Alcohol withdrawal - CIWA is 6 - Ativan # Hypertension Crisis - resolved - continue home meds # slow transit constipation - abdominal CT showed retained colorectal stool - Colase #Cholelithiasis. , sludge in gallbladder -surgical consult, pending # Hyperlipidemia -continue home meds #Alcoholic liver cirrhosis - liver ultrasound showed No sonographic evidence of acute cholecystitis. Mobile sludge is noted in the gallbladder Hepatic steatosis - abdominal CT showed Cirrhotic morphology of the liver with sequelae of portal venous hypertension. #Thrombocytopenia, due to above - monitor labs #History of alcohol dependence #Marijuana use disorder -patient counseled on cessation of alcohol, marijuana use for 13 minutes GI PPX: Protonix Diet: NPO Goals of care addressed with the patient for more than 31 minutes: Full code status Case discussed with Dr. Toledo ,patient and nurse Plan discussed with: Patient Date of Service: May 15, 2025 Billing Provider: OLENA TOLEDO MD Common Visit Codes: 99618-RIEUBCJ INP/OBS CARE (HIGH) Secondary Visit Codes: 55602-DCGHVFRH CARE PLAN 30 MINUTES FAIZAN ROLON RESIDENT May 15, 2025 01:32
[2025-05-15] MEDS ORDERED: THIAMINE 100mg/ml INJ (200mg/2ml VIAL) IV ONE (02:00)
[2025-05-15 02:30] LABS: Potassium 3.8 mmol/L (3.5-5.1); Sodium 140 mmol/L (136-145)
[2025-05-15 02:31] LABS: Anion Gap 16 (5-15)
[2025-05-15 02:33] LABS: Calcium 7.4 mg/dL (8.7-10.4); Carbon Dioxide 16 mmol/L (20-31); Chloride 108 mmol/L (98-107)
[2025-05-15 02:36] LABS: BUN/Creatinine Ratio 9.7 (10.0-20.0)
[2025-05-15 02:37] LABS: Magnesium 1.7 mg/dL (1.6-2.6)
[2025-05-15 02:42] LABS: Blood Urea Nitrogen 7 mg/dL (9-23); Glucose 268 mg/dL (74-106)
[2025-05-15 02:44] LABS: Lactic Acid w/Reflex 4.4 mmol/L (0.4-2.0)
[2025-05-15 02:45] LABS: COVID19 ANTIGEN SOFIA FIA NEGATIVE (NEGATIVE)
[2025-05-15] MEDS ORDERED: POTASSIUM CHL 20MEQ/100ML 100 ML IV ONE (03:30)
[2025-05-15] MEDS ORDERED: POTASSIUM PHOSPHATE 22 MEQ in SODIUM CHL 0.9% 100 ML IV ONE ×2 (03:30→08:00)
[2025-05-15] MEDS: FOLIC ACID 1 MG in D5W 5% 50 ML INJ ONE ×2 (03:30→08:47)
[2025-05-15] MEDS ORDERED: VANCOMYCIN PER PHARMACY 0 MG IV SCH (03:30)
[2025-05-15 03:59] LABS: Hematocrit 34.4 % (41.0-53.0); Hemoglobin 12.0 g/dL (13.5-17.5); Mean Corpuscular Hemoglobin 36.8 pg (28.0-32.0); Mean Corpuscular Volume 104.9 fL (80.0-100.0); Nucleated Red Blood Cells % 0.1 %
[2025-05-15] MEDS: InsuLIN REG 1unit/0.01ml Soln (100units/ml) SC SCH ×2 (04:00→16:36)
[2025-05-15] MEDS: ACCU-CHEK COMFORT CURVE STRIP VI SCH ×3 (04:03→16:36)
[2025-05-15 04:05] LABS: Amphetamine Screen, Urine Neg (NEGATIVE); Barbiturate Scree,Urine Neg (NEGATIVE); Benzodiazephine Screen, Urine Neg (NEGATIVE); Cannabinoid Screen, Urine Neg (NEGATIVE); Cocaine Screen, Urine Neg (NEGATIVE); Opiate Scree,Urine Neg (NEGATIVE); Phencyclidine Screen, Urine Neg (NEGATIVE)
[2025-05-15] MEDS: VANCOMYCIN 1GM/250ML KIT 250 ML IV ONE (04:08)
[2025-05-15] MEDS: PANTOPRAZOLE 40 MG/10 ML VIAL INJ IV ONE (04:17)
[2025-05-15] MEDS: SODIUM CHLORIDE 0.9% 1,000 ML IV SCH (04:17)
[2025-05-15 04:18] LABS: Anion Gap 17 (5-15); BUN/Creatinine Ratio 9.3 (10.0-20.0); Potassium 3.8 mmol/L (3.5-5.1); Sodium 140 mmol/L (136-145); Total Protein 6.2 g/dL (5.7-8.2)
[2025-05-15 04:19] LABS: Bilirubin, Total 0.6 mg/dL (0.2-1.0); Cholesterol 135 mg/dL (< 200)
--- NOTE | 2025-05-15 04:28 | DVH ---
Exam: CT CT AB PEL WO CON-NO ORAL OR IV History: interactable abd pain Comparison Study: CT ABD/PEL on DOS: 05/06/25, CT ABD/PEL W - IV on DOS: 01/13/25, CT ABD/PEL W - IV on DOS: 10/08/24, CT ABD/PEL on DOS: 04/14/24, CT ABDOMEN PELVIS WITH on DOS: 12/20/20 Technique: Multidetector spiral CT of the abdomen was performed from lung bases to pubic symphysis. I maging was performed without IV contrast. Axial, coronal and sagittal multiplanar reformats were obta ined from the axial data set by the technologist. Radiation Dose : 1. Abdomen/Pelvis: CTDIvol 10.29 mGy, DLP 616.88 mGy*cm. Findings: Evaluation of solid organs is limited due to lack of intravenous contrast use. Lung Bases: Trace bilateral pleural effusions and adjacent atelectasis. Diffuse septal thickening and mild bilateral central bronchiectasis. No evidence of pneumothorax. Normal heart size. No pericardi al effusion. Liver: The liver exhibits a cirrhotic morphology and is otherwise normal in size. No focal lesions. Gallbladder and Biliary Tree: Cholelithiasis. Spleen: Unremarkable. Prominent venous collaterals adjacent to the splenic hilum consistent with seq uelae of portal venous hypertension. Pancreas: The pancreas is grossly normal in appearance. Adrenal Glands: Unremarkable Kidneys: Kidneys are grossly normal without calculi or hydronephrosis. Bladder: Grossly unremarkable for degree of distention. Bowel: The stomach is grossly normal in appearance. Retained colorectal stool. Small bowel and colon are otherwise normal in caliber and distribution. The appendix is normal. Ascites: Absent Lymphadenopathy: No mesenteric, retroperitoneal or periportal lymphadenopathy. Abdominal Wall and Mesentery: Unremarkable. Vasculature: The visualized abdominal aorta is normal in size and caliber. Atherosclerotic vascular c alcifications. Evaluation of abdominal and pelvic vessels is limited due to lack of intravenous contr ast. Pelvic Organs: Prostatic enlargement, measuring 5.5 cm transverse. Fat containing left inguinal herni a. Musculoskeletal: No aggressive focal bony lesions, acute fractures or dislocation. IMPRESSION: 1. No acute abnormalities in the abdomen or pelvis. 2. Cirrhotic morphology of the liver with sequelae of portal venous hypertension. 3. Cholelithiasis. 4. Trace bilateral pleural effusions and adjacent atelectasis. 5. Prostatic enlargement. 6. Retained colorectal stool. Radiation optimization: All CT scans at this facility use at least one of these dose optimization marlo hniques: automated exposure control mA and/or kV adjustment per patient size (includes targeted exam s where dose is matched to clinical indication) or iterative reconstruction.
[2025-05-15 04:31] LABS: Alanine Aminotransferase 50 U/L (7-40); Albumin 2.9 g/dL (3.2-4.8); Alkaline Phosphatase 213 U/L (46-116); Blood Urea Nitrogen 7 mg/dL (9-23); Calcium 7.6 mg/dL (8.7-10.4); Carbon Dioxide 15 mmol/L (20-31); Chloride 108 mmol/L (98-107); Glucose 277 mg/dL (74-106); HDL Cholesterol 31 mg/dL (40-59); Triglycerides 517 mg/dL (< 150)
[2025-05-15] MEDS: PIPERACILLIN-TAZOB 3.375GM 100 ML IV SCH (05:41)
[2025-05-15 07:30] VITALS: PULSE 93; RESP 21; O2SAT 93
[2025-05-15] MEDS ORDERED: INSULIN DRIP 100 UNIT/100ML 100 ML IV SCH ×4 (08:00)
[2025-05-15 08:11] LABS: Base Excess -6.4 mmol/L (-2.0-3.0)
[2025-05-15] MEDS: D5W/SOD CHL 0.45%/KCL 20MEQ 1,000 ML IV SCH (08:26)
[2025-05-15] MEDS: SODIUM PHOSPHATES 20 MEQ in SODIUM CHL 0.9% 100 ML IV ONE (08:27)
[2025-05-15] MEDS: INSULIN DRIP 100 UNIT/100ML 100 ML IV SCH (08:40)
[2025-05-15 10:04] LABS: Magnesium 1.7 mg/dL (1.6-2.6)
[2025-05-15 10:09] LABS: Chloride 107 mmol/L (98-107); Potassium 4.0 mmol/L (3.5-5.1); Sodium 138 mmol/L (136-145)
[2025-05-15 10:10] LABS: Anion Gap 13 (5-15)
[2025-05-15 10:15] LABS: BUN/Creatinine Ratio 8.4 (10.0-20.0)
[2025-05-15 10:23] LABS: Blood Urea Nitrogen 7 mg/dL (9-23); Calcium 7.3 mg/dL (8.7-10.4); Carbon Dioxide 18 mmol/L (20-31); Glucose 281 mg/dL (74-106)
[2025-05-15 10:25] LABS: Lactic Acid w/Reflex 2.2 mmol/L (0.4-2.0)
--- NOTE | 2025-05-15 12:47 | DVHINCON2 ---
Consultation - Surgical Date Seen: May 15, 2025 Referring Physician Reason for Consultation Possible cholecystitis History of Present Illness History of Present Illness Mr. Huff is a 44-year-old male who presented to the ED with lower abdominal pain and bilateral leg pain that started yesterday. States that his lower abdomen feels tender in the pain radiates down through his legs and they feel weak. He was nauseous yesterday, not today, no vomiting. Patient denies any right upper quadrant abdominal pain/epigastric pain, or pain after eating anything greasy or spicy. Denies any gallbladder problems in the past. Denies acholic stools, fevers, chills, changes in urinary or stooling habits. Denies any weight loss/loss of appetite. Past Medical/Surgical History Past Medical/Surgical History PMH cirrhosis due to alcohol, hyperlipidemia, hypertension, diabetes PSH toe surgery Family and Social History Family and Social History No personal family history of cancers ETOH used to drink 18 beers per day, now drinks several tall cans per day, no tobacco use, marijuana use Allergies and medications Allergies: Coded Allergies: Penicillins (Verified Allergy, Unknown, 03/29/25) Home Meds Active Scripts Blood Glucose Monitoring Suppl (Blood Glucose Monitoring W/Device) 1 Kit Kit, KIT XX TIDWMEALS, #1 Prov:JAMES FUENTES MD 03/31/25 Lancets (Freestyle Lancets) Lancets Mis, EA XX TIDWMEALS, #120 Prov:JAMES FUENTES MD 03/31/25 Insulin Lispro (Humalog Kwikpen) 100 Unit/Ml Inj, 6 UNIT SC TIDWMEALS, #10 INJ Prov:JAMES FUENTES MD 03/31/25 Insulin Glargine (Insulin Glargine Solostar) 300 Unit/Ml Inj, 15 UNITS SUBCUT BID, #10 INJ Prov:JAMES FUENTES MD 03/31/25 Gabapentin (Gabapentin) 300 Mg Cap, 1 CAP PO DAILY, #14 CAP Prov:JAMES FUENTES MD 03/31/25 Simvastatin (Simvastatin) 20 Mg Tab, 1 TAB PO HS, #30 TAB Prov:JAMES FUENTES MD 03/31/25 Lisinopril (Lisinopril) 10 Mg Tab, 1 TAB PO DAILY, #60 TAB Prov:JAMES FUENTES MD 03/31/25 Review of systems Review of Systems: Deferred Examination Vital signs Vital Signs Date Time Temp Pulse Resp B/P (MAP) Pulse Ox O2 Delivery O2 Flow Rate FiO2 05/15/25 08:00 97 05/15/25 07:30 98.4 21 121/69 (86) 93 98.4 05/15/25 07:30 Nasal Cannula* 4 36 Medications Current Medications Medications (Trade) Dose Ordered Sig/Rod Route PRN Reason Start Time Stop Time Status Last Admin Dextrose 50 ml PRN PRN IV Blood Sugar LESS THAN 60 05/14/25 22:15 05/15/25 07:57 DC Dextrose 50 ml PRN PRN IV Blood Sugar LESS THAN 60 05/14/25 22:15 05/15/25 07:57 DC Diagnostic Test (Pha) (Accu-Chek Comfort Curve T) 1 strip ONCE STAT 05/14/25 22:15 05/14/25 22:21 DC 05/15/25 00:13 Piperacillin Sod/ Tazobactam Sod 100 ml @ 25 mls/hr Q8HR IV 05/15/25 06:00 05/15/25 12:34 DC 05/15/25 05:41 Lorazepam (Ativan Inj) 1 mg Q5MINP PRN IV SEIZURES 05/15/25 00:30 Diagnostic Test (Pha) (Accu-Chek Comfort Curve T) 1 strip IQ4HR 05/15/25 04:00 05/15/25 07:59 DC 05/15/25 04:03 Insulin Human Regular (InsuLIN R) IQ4HR SC 05/15/25 04:00 05/15/25 08:18 DC Dextrose 50 ml UD PRN IV Blood Sugar LESS THAN 60 05/15/25 00:30 05/15/25 07:57 DC Vancomycin HCl 0 ml @ 0 mls/hr UD IV 05/15/25 03:30 05/15/25 12:34 DC Folic Acid 1 mg/ Multivitamins 10 ml/Magnesium Sulfate 8 meq/ Thiamine HCl 100 mg/Dextrose 1,013.2 ml @ 125.001 mls/hr DAILY@1800 INJ 05/15/25 18:00 05/15/25 07:51 DC Sodium Chloride 1,000 ml @ 125 mls/hr Q8H IV 05/15/25 03:45 05/15/25 07:51 DC 05/15/25 04:17 Potassium Chloride/Dextrose/ Sod Cl 1,000 ml @ 150 mls/hr Q6H40M IV 05/15/25 08:00 05/15/25 12:34 DC 05/15/25 08:26 Insulin Human (Reg)/Sodium Chloride 100 ml @ 0.5 mls/hr Q24H IV 05/15/25 08:00 05/15/25 07:59 DC Dextrose 50 ml UD PRN IV SEE CURRENT ALGORITHM or SCALE 05/15/25 08:00 05/15/25 12:34 DC Diagnostic Test (Pha) (Accu-Chek Comfort Curve T) 1 strip Q90MIN 05/15/25 09:00 05/15/25 12:34 DC 05/15/25 12:06 Insulin Human (Reg)/Sodium Chloride 100 ml @ 0.5 mls/hr Q24H IV 05/15/25 08:00 05/15/25 08:35 DC Insulin Human (Reg)/Sodium Chloride 100 ml @ 1 mls/hr Q24H IV 05/15/25 08:00 05/15/25 07:59 DC Insulin Human (Reg)/Sodium Chloride 100 ml @ 2 mls/hr Q24H IV 05/15/25 08:00 05/15/25 07:59 DC Vancomycin HCl 250 ml @ 166.667 mls/hr Q12H IV 05/15/25 16:00 05/15/25 12:34 DC Insulin Human (Reg)/Sodium Chloride 100 ml @ 0.5 mls/hr Q24H IV 05/15/25 08:45 05/15/25 12:34 DC 05/15/25 08:40 Folic Acid 1 mg/ Multivitamins 10 ml/Magnesium Sulfate 8 meq/ Thiamine HCl 100 mg/Dextrose 1,013.2 ml @ 125.001 mls/hr DAILY@1800 INJ 05/15/25 18:00 UNV Lactated Ringer's 1,000 ml @ 100 mls/hr Q10H IV 05/15/25 12:30 UNV Insulin Glargine (Lantus) 15 units HS SC 05/15/25 22:00 UNV Diagnostic Test (Pha) (Accu-Chek Comfort Curve T) 1 strip IQ4HR 05/15/25 16:00 UNV Insulin Human Regular (InsuLIN R) IQ4HR SC 05/15/25 16:00 UNV Dextrose 50 ml UD PRN IV Blood Sugar LESS THAN 60 05/15/25 12:30 UNV Lorazepam (Ativan Inj) 1 mg Q8HP PRN IV ALCOHOL WITHDRAWAL SYMPTOMS 05/15/25 12:30 UNV Laboratory Labs Test 05/15/25 12:05 05/15/25 09:54 05/15/25 08:51 05/15/25 08:05 Range/Units POC Glucose 230 H 70-106 mg/dl Lactic Acid Level 2.2 *H 0.4-2.0 mmol/L Sodium Level 138 136-145 mmol/L Potassium Level 4.0 3.5-5.1 mmol/L Chloride Level 107 98-107 mmol/L Carbon Dioxide Level 18 L 20-31 mmol/L Anion Gap 13 5-15 Blood Urea Nitrogen 7 L 9-23 mg/dL Creatinine 0.83 0.700-1.30 mg/dL Glomerular Filtration Rate Calc 110 >90 mL/min BUN/Creatinine Ratio 8.4 L 10.0-20.0 Serum Glucose 281 H 74-106 mg/dL Serum Osmolality 297 278-298 mOsm/kg Calcium Level 7.3 L 8.7-10.4 mg/dL Phosphorus Level 1.6 L 2.4-5.1 mg/dL Magnesium Level 1.7 1.6-2.6 mg/dL Beta-Hydroxybutyric Acid 1.774 H < 0.4 mmol/L Blood Gas Specimen Type Arterial Blood Gas Sample Site Left radial Blood Gas Patient Temperature 37.0 Arterial Blood Date Drawn [id number] Arterial Blood pH 7.420 7.350-7.450 Arterial Blood Partial Pressure CO2 25.8 L 35.0-48.0 mmHg Arterial Blood Partial Pressure O2 68.9 L 83.0-108.0 mmHg Arterial Blood HCO3 16.4 L 21.0-28.0 mmol/L Arterial Blood Oxygen Saturation 93.0 L 94.0-98.0 % Arterial Blood Base Excess -6.4 L -2.0-3.0 mmol/L Arterial Blood Oxyhemoglobin 92.1 L 94.0-98.0 % Arterial Blood Carboxyhemoglobin 0.6 0.5-1.5 % Arterial Blood Methemoglobin 0.4 0.0-1.5 % Anmol Test Yes Blood Gas Total Hemoglobin 13.20 L 13.5-17.5 g/dL Blood Gas Liter Flow 4.00 Blood Gas Modality Nasal cannula FiO2 % 36.0 Test 05/15/25 07:53 05/15/25 03:25 05/15/25 01:50 05/15/25 00:00 Range/Units Stool Occult Blood Negative Negative Stool Occult Blood Sample #3 Negative White Blood Count 2.6 L 4.4-10.8 10^3/uL Red Blood Count 3.28 L 4.5-5.90 10^6/uL Hemoglobin 12.0 L 13.5-17.5 g/dL Hematocrit 34.4 #L 41.0-53.0 % Mean Corpuscular Volume 104.9 H 80.0-100.0 fL Mean Corpuscular Hemoglobin 36.8 H 28.0-32.0 pg Mean Corpuscular Hemoglobin Concent 35.1 32.0-36.0 g/dL Red Cell Distribution Width 13.3 11.8-14.3 % Platelet Count 70 L 140-450 10^3/uL Mean Platelet Volume 7.5 6.9-10.8 fL Neutrophils (%) (Auto) 43.5 37.0-80.0 % Lymphocytes (%) (Auto) 36.4 10.0-50.0 % Monocytes (%) (Auto) 14.3 H 0.0-12.0 % Eosinophils (%) (Auto) 4.4 0.0-7.0 % Basophils (%) (Auto) 1.4 0.0-2.0 % Neutrophils # (Auto) 1.1 L 1.6-8.6 10 ^3/uL Lymphocytes # (Auto) 0.9 0.4-5.4 10 ^3/uL Monocytes # (Auto) 0.4 0-1.3 10 ^3/uL Eosinophils # (Auto) 0.1 0-0.8 10 ^3/uL Basophils # (Auto) 0 0-0.2 10 ^3/uL Nucleated Red Blood Cells 0.1 % Hemoglobin A1c 11.0 H <5.7 % A1C Total Bilirubin 0.6 0.2-1.0 mg/dL Aspartate Amino Transferase (AST) 82 H 13-40 U/L Alanine Aminotransferase (ALT) 50 H 7-40 U/L Alkaline Phosphatase 213 H 46-116 U/L Total Protein 6.2 5.7-8.2 g/dL Albumin 2.9 L 3.2-4.8 g/dL Triglycerides Level 517 H < 150 mg/dL Cholesterol Level 135 < 200 mg/dL LDL Cholesterol < 100 mg/dL HDL Cholesterol 31 L 40-59 mg/dL SARS-CoV-2 Antigen (Rapid) Negative NEGATIVE Urine Color Light-yellow Yellow Urine Clarity Clear Clear Urine pH 5.5 5.0-9.0 Urine Specific [place] 1.023 1.001-1.035 Urine Protein Negative Negative Urine Ketones 1+ H Negative Urine Blood Negative Negative /uL Urine Nitrite Negative Negative Urine Bilirubin Negative Negative Urine Urobilinogen Normal Negative mg/dL Urine Leukocyte Esterase Negative Negative /uL Urine RBC 1 0 - 3 /hpf Urine Microscopic WBC < 1 0-3 /HPF Urine Squamous Epithelial Cells Few <5 /hpf Urine Bacteria None seen None Seen /hpf Urine Glucose 4+ H Normal mg/dL Urine Opiates Screen Neg NEGATIVE Urine Fentanyl Screen Neg NEGATIVE Urine Barbiturates Screen Neg NEGATIVE Urine Phencyclidine Screen Neg NEGATIVE Urine Amphetamines Screen Neg NEGATIVE Urine Benzodiazepines Screen Neg NEGATIVE Urine Cocaine Screen Neg NEGATIVE Urine Cannabinoids Screen Neg NEGATIVE Test 05/14/25 21:07 05/14/25 19:52 Range/Units Troponin I High Sensitivity < 3 L </=54 ng/L Plasma/Serum Blood Alcohol 124.7 H <10 mg/dL Examination: GENERAL:Normal, HEENT:Normal (No icterus), ABDOMEN:Abnormal (Nondistended, soft, depressible, no scars, bilateral mild lower abdominal tenderness, no rebound, no guarding, negative Florez's) Problem List/Assessment/Plan Problems: (1) DKA (diabetic ketoacidosis) Assessment and Plan Mr. Huff is a 44-year-old male who presented with lower abdominal pain that radiates to the bilateral lower extremities. I was consulted due to the possib ility of cholecystitis. Ultrasound showed a cirrhotic liver, sludge within the gallbladder wall lumen, no pericholecystic fluid, no gallbladder wall thickness. Given this ultrasound findings coupled with the physical exam and his history. Patient does not have any gallbladder related symptoms. Abdominal pain might be due to the diabetic ketoacidosis a presented with. No surgery indicated at this time. -I will sign off please call with any questions or concerns Plan discussed with Plan discussed with: Patient Visit Coding Surgery Date of Service if different f: May 15, 2025 Billing Provider: CANDY TOWNSEND MD Surgery Visit Codes: [id number] - INP CONSULT <110 MIN CANDY TOWNSEND MD May 15, 2025 12:47
[2025-05-15] MEDS: FOLIC ACID 1 MG, MULTIPLE VITAMIN 10 ML, MAGNESIUM SULF SDV 50% 8 MEQ, THIAMINE INJ 100... INJ SCH ×2 (12:50→17:52)
--- NOTE | 2025-05-15 12:57 | DVHPN2 ---
Subjective Patient denies any symptoms at this time. Reviewed: Care Plan, H&P, Labs, Medications Changes from previous H/P or p: No Changes Eyes: No Pain, No Vision change, No Conjunctivae inflammation, No Eyelid inflammation, No Other, No Redness ENT: No Ear pain, No Ear discharge, No Nose pain, No Nose discharge, No Nose congestion, No Mouth pain, No Mouth swelling, No Throat pain, No Throat swelling, No Other Cardiovascular: Chest Pain; No Palpitations, No Orthopnea, No Paroxysmal Noc. Dyspnea, No Edema, No Lt Headedness, No Other Respiratory: No Cough, No Dry; Shortness of breath; No SOB with excertion, No Wheezing, No Hemoptysis, No Pleuritic Pain, No Sputum, No Other Gastrointestinal: Nausea, Vomiting, Abdominal Pain; No Diarrhea, No Constipation, No Melena, No Hematochezia, No Other Genitourinary: No Dysuria, No Frequency, No Incontinence, No Hematuria, No Retention, No Other Musculoskeletal: No other, No neck pain, No shoulder pain, No arm pain, No back pain, No hand pain, No leg pain, No foot pain Skin: No Rash, No Lesions, No Jaundice, No Bruising, No Other Objective Vitals Vital Signs Date Time Temp Pulse Resp B/P (MAP) Pulse Ox O2 Delivery O2 Flow Rate FiO2 05/15/25 08:00 97 05/15/25 07:30 98.4 21 121/69 (86) 93 98.4 05/15/25 07:30 Nasal Cannula* 4 36 Intake/Output Intake and Output 05/15/25 07:00 Intake Total 250 ml Balance 250 ml Intake IV Total 250 ml General Appearance: Alert, Oriented X3, Cooperative HEENT: Atraumatic, PERRLA Lungs: Clear to auscultation, Normal air movement Cardiovascular: Normal S1, Normal S2, Other (Sinus rhythm) Abdomen: Normal bowel sounds, Soft Musculoskeletal: Normal motor function Neuro: Normal gait, Normal speech Skin: Dry, Intact Psych/Mental Status: Mental status NL, Mood NL Medications Current Medications Medications Dose Ordered Sig/Rod Route Start Time Stop Time Status Last Admin Dose Admin Lorazepam 1 mg Q5MINP PRN IV 05/15/25 00:30 Folic Acid 1 mg/ Multivitamins 10 ml/Magnesium Sulfate 8 meq/ Thiamine HCl 100 mg/Dextrose 1,013.2 ml @ 125.001 mls/hr DAILY@1800 INJ 05/15/25 12:50 Lactated Ringer's 1,000 ml @ 100 mls/hr Q10H IV 05/15/25 12:30 Insulin Glargine 15 units HS SC 05/15/25 22:00 Diagnostic Test (Pha) 1 strip IQ4HR 05/15/25 16:00 Insulin Human Regular IQ4HR SC 05/15/25 16:00 Dextrose 50 ml UD PRN IV 05/15/25 12:30 Lorazepam 1 mg Q8HP PRN IV 05/15/25 12:30 Laboratory Results Laboratory Tests 05/15/25 03:25 05/15/25 08:51 Chemistry Test 05/14/25 19:52 05/15/25 02:09 05/15/25 03:25 05/15/25 08:51 Albumin 3.4 g/dL (3.2-4.8) 2.9 g/dL (3.2-4.8) L Calcium Level 8.4 mg/dL (8.7-10.4) L 7.4 mg/dL (8.7-10.4) L 7.6 mg/dL (8.7-10.4) L 7.3 mg/dL (8.7-10.4) L Magnesium Level 1.9 mg/dL (1.6-2.6) 1.7 mg/dL (1.6-2.6) 1.7 mg/dL (1.6-2.6) Total Protein 7.0 g/dL (5.7-8.2) 6.2 g/dL (5.7-8.2) Phosphorus Level 1.2 mg/dL (2.4-5.1) L 1.6 mg/dL (2.4-5.1) L Lipid panel Test 05/15/25 03:25 Cholesterol Level 135 mg/dL (< 200) HDL Cholesterol 31 mg/dL (40-59) L Triglycerides Level 517 mg/dL (< 150) H LFT Test 05/14/25 19:52 05/15/25 03:25 Alanine Aminotransferase (ALT) 61 U/L (7-40) H 50 U/L (7-40) H Alkaline Phosphatase 240 U/L (46-116) H 213 U/L (46-116) H Aspartate Amino Transferase (AST) 109 U/L (13-40) H 82 U/L (13-40) H Total Bilirubin 0.9 mg/dL (0.2-1.0) 0.6 mg/dL (0.2-1.0) HgA1c, TSH Test 05/15/25 03:25 Hemoglobin A1c 11.0 % A1C (<5.7) H Urinalysis Test 05/15/25 00:00 Urine Color Light-yellow (Yellow) Urine Clarity Clear (Clear) Urine pH 5.5 (5.0-9.0) Urine Specific [place] 1.023 (1.001-1.035) Urine Protein Negative (Negative) Urine Ketones 1+ (Negative) H Urine Blood Negative /uL (Negative) Urine Nitrite Negative (Negative) Urine Bilirubin Negative (Negative) Urine Urobilinogen Normal mg/dL (Negative) Urine Leukocyte Esterase Negative /uL (Negative) Urine RBC 1 /hpf (0 - 3) Urine Microscopic WBC < 1 /HPF (0-3) Urine Squamous Epithelial Cells Few /hpf (<5) Urine Bacteria None seen /hpf (None Seen) Urine Glucose 4+ mg/dL (Normal) H Blood Gas Results Test 05/14/25 20:11 05/15/25 08:05 Arterial Blood pH 7.390 (7.350-7.450) 7.420 (7.350-7.450) FiO2 % 21.0 36.0 Labs and/or images reviewed: Labs reviewed by me, Image(s) reviewed by me Assessment/Plan Assessment/Plan Impression: -acute alcohol intoxication -diabetic ketoacidosis -toxic metabolic encephalopathy -cirrhosis with portal hypertension -cholelithiasis -leukopenia -thrombocytopenia Plan: -patient's blood sugars have improved. Anion gap has closed. Vital signs stable. Downgrade to telemetry unit -stop insulin drip, start q.4 coverage. Lantus 15 units now prior to stopping insulin drip and daily -start consistent carbohydrate diet -alternate banana bag with LR -lorazepam p.r.n. alcohol withdrawal symptoms -stop antibiotics -repeat labs in a.m. Total time spent with patient discussing and formulating plan of care: 35 minutes. This medical document was created using an electronic medical record system with [employer] dictation system. Although this document has been carefully reviewed, there may still be some phonetic and typographical errors. These areas are purely typographical due to imperfections of the software programs, and do not reflect any compromise in the patient's medical care. Plan discussed with: Patient, Other (RN) My Orders Orders - ARMOND MARCELO NP Procedure Category Date Status Time Folic Acid... PHA 05/15/25 In Process 12:50 Lactated Ringer's PHA 05/15/25 In Process 12:30 Insulin Lantus PHA 05/15/25 In Process (Glargine) (Lantus) 22:00 Glucose Blood PHA 05/15/25 In Process (Accu-Chek Comfort 16:00 Insulin R (Human) PHA 05/15/25 In Process (Insulin R) 16:00 Dextrose 50% Syringe PHA 05/15/25 In Process 12:30 Transfer Orders XFER 05/15/25 Transmitted 12:27 Consistent DIET 05/15/25 Transmitted Carb(Ccho)Diabetes Lunch Lorazepam 2mg/Ml Inj PHA 05/15/25 In Process (Ativan Inj) 12:30 Date of Service: May 15, 2025 Billing Provider: ARMOND MARCELO NP Common Visit Codes: [id number] INP/OBS CARE(HIGH) ARMOND MARCELO NP May 15, 2025 12:57
[2025-05-15] MEDS: LACTATED RINGER'S 1,000 ML IV SCH (13:07)
[2025-05-15] MEDS: INSULIN LANTUS (GLARGINE) 1 /0.01ml (100units/ml) SC ONE (13:07)
[2025-05-15 14:40] LABS: Chloride 105 mmol/L (98-107); Potassium 3.8 mmol/L (3.5-5.1); Sodium 137 mmol/L (136-145)
[2025-05-15 14:41] LABS: Anion Gap 11 (5-15); Carbon Dioxide 21 mmol/L (20-31)
[2025-05-15 14:46] LABS: Calcium 8.0 mg/dL (8.7-10.4)
[2025-05-15 14:47] LABS: BUN/Creatinine Ratio 6.6 (10.0-20.0)
[2025-05-15 14:50] LABS: Blood Urea Nitrogen 6 mg/dL (9-23); Glucose 230 mg/dL (74-106)
[2025-05-15] MEDS ORDERED: VANCOMYCIN 1.5GM/250ML 250 ML IV SCH (16:00)
[2025-05-15] MEDS ORDERED: FOLIC ACID 1 MG, MULTIPLE VITAMIN 10 ML, MAGNESIUM SULF SDV 50% 8 MEQ, THIAMINE INJ 100... INJ SCH (18:00)
[2025-05-15 19:26] VITALS: BP 140/80; PULSE 102; RESP 24; TEMP 98.8; O2SAT 91
[2025-05-15 20:10] LABS: Chloride 106 mmol/L (98-107); Potassium 4.1 mmol/L (3.5-5.1)
[2025-05-15 20:11] LABS: Anion Gap 8 (5-15); Carbon Dioxide 21 mmol/L (20-31)
[2025-05-15 20:13] LABS: Calcium 7.9 mg/dL (8.7-10.4); Sodium 135 mmol/L (136-145)
[2025-05-15 20:17] LABS: BUN/Creatinine Ratio 6.7 (10.0-20.0)
[2025-05-15 20:18] LABS: Blood Urea Nitrogen 6 mg/dL (9-23); Glucose 328 mg/dL (74-106)
[2025-05-15 21:15] VITALS: BP 142/87; PULSE 101; RESP 18; TEMP 98.1; O2SAT 93
[2025-05-15 21:22] VITALS: PULSE 101; RESP 18
[2025-05-15] MEDS: ACETAMINOPHEN 325 MG TAB PO PRN (23:18)
[2025-05-15] MEDS: INSULIN LANTUS (GLARGINE) 1 /0.01ml (100units/ml) SC SCH (23:22)
[2025-05-16] VITALS (8 sets, daily range): BP systolic 102–154; BP diastolic 61–93; PULSE 80–109; RESP 12–20; TEMP 97.7–99.8; O2SAT 87–96
[2025-05-16 02:09] LABS: Chloride 106 mmol/L (98-107); Sodium 137 mmol/L (136-145)
[2025-05-16 02:10] LABS: Anion Gap 9 (5-15); Carbon Dioxide 22 mmol/L (20-31)
[2025-05-16 02:15] LABS: BUN/Creatinine Ratio 5.6 (10.0-20.0); Blood Urea Nitrogen < 5 mg/dL (9-23); Calcium 8.3 mg/dL (8.7-10.4); Glucose 249 mg/dL (74-106); Potassium 3.4 mmol/L (3.5-5.1)
[2025-05-16] MEDS ORDERED: DEXTROSE (50%) 50ML SYRG IV PRN (09:15)
[2025-05-16] MEDS: MULTIPLE VITAMIN TAB PO ONE (12:04)
[2025-05-16] MEDS: FOLIC ACID 1 MG TAB PO ONE (12:04)
[2025-05-16] MEDS: MAGNESIUM OXIDE 400 MG TAB PO ONE (12:05)
[2025-05-16] MEDS: THIAMINE HCL 100 MG TAB PO ONE (12:06)
[2025-05-16] MEDS: InsuLIN REG 1unit/0.01ml Soln (100units/ml) SC SCH (12:09)
[2025-05-16] MEDS: INSULIN LANTUS (GLARGINE) 1 /0.01ml (100units/ml) SC SCH (12:10)
[2025-05-16] MEDS: ACCU-CHEK COMFORT CURVE STRIP VI SCH (12:11)
--- NOTE | 2025-05-16 16:20 | DVHPN2 ---
Subjective Patient denies any symptoms at this time. Reviewed: Care Plan, H&P, Labs, Medications Changes from previous H/P or p: No Changes Eyes: No Pain, No Vision change, No Conjunctivae inflammation, No Eyelid inflammation, No Other, No Redness ENT: No Ear pain, No Ear discharge, No Nose pain, No Nose discharge, No Nose congestion, No Mouth pain, No Mouth swelling, No Throat pain, No Throat swelling, No Other Cardiovascular: Chest Pain; No Palpitations, No Orthopnea, No Paroxysmal Noc. Dyspnea, No Edema, No Lt Headedness, No Other Respiratory: No Cough, No Dry; Shortness of breath; No SOB with excertion, No Wheezing, No Hemoptysis, No Pleuritic Pain, No Sputum, No Other Gastrointestinal: Nausea, Vomiting, Abdominal Pain; No Diarrhea, No Constipation, No Melena, No Hematochezia, No Other Genitourinary: No Dysuria, No Frequency, No Incontinence, No Hematuria, No Retention, No Other Musculoskeletal: No other, No neck pain, No shoulder pain, No arm pain, No back pain, No hand pain, No leg pain, No foot pain Skin: No Rash, No Lesions, No Jaundice, No Bruising, No Other Objective Vitals Vital Signs Date Time Temp Pulse Resp B/P (MAP) Pulse Ox O2 Delivery O2 Flow Rate FiO2 05/16/25 13:02 97.9 99 12 139/78 (98) 87 97.9 05/16/25 08:00 Room Air* 0 21 Intake/Output Intake and Output 05/16/25 07:00 Intake Total 1105 ml Balance 1105 ml Intake Oral 105 ml IV Total 1000 ml # Voids 3 General Appearance: Alert, Oriented X3, Cooperative HEENT: Atraumatic, PERRLA Lungs: Clear to auscultation, Normal air movement Cardiovascular: Normal S1, Normal S2, Other (Sinus rhythm) Abdomen: Normal bowel sounds, Soft Musculoskeletal: Normal motor function Neuro: Normal gait, Normal speech Skin: Dry, Intact Psych/Mental Status: Mental status NL, Mood NL Medications Current Medications Medications Dose Ordered Sig/Rod Route Start Time Stop Time Status Last Admin Dose Admin Lorazepam 1 mg Q5MINP PRN IV 05/15/25 00:30 Lorazepam 1 mg Q8HP PRN IV 05/15/25 12:30 Acetaminophen 650 mg Q6HP PRN PO 05/15/25 22:15 05/16/25 12:04 650 MG Insulin Glargine 15 units BID@1000,2200 SC 05/16/25 10:00 05/16/25 12:10 15 UNITS Diagnostic Test (Pha) 1 strip IQ4HR 05/16/25 12:00 05/16/25 16:15 1 STRIP Insulin Human Regular IQ4HR SC 05/16/25 12:00 05/16/25 16:15 12 UNITS Dextrose 50 ml UD PRN IV 05/16/25 09:15 Folic Acid 1 mg DAILY PO 05/17/25 10:00 Multivitamins 1 tab DAILY PO 05/17/25 10:00 Magnesium Oxide 400 mg DAILY PO 05/17/25 10:00 Thiamine HCl 100 mg DAILY PO 05/17/25 10:00 Laboratory Results Laboratory Tests 05/15/25 03:25 05/16/25 01:51 Chemistry Test 05/15/25 19:43 05/16/25 01:51 Calcium Level 7.9 mg/dL (8.7-10.4) L 8.3 mg/dL (8.7-10.4) L Urinalysis Test 05/15/25 00:00 Urine Color Light-yellow (Yellow) Urine Clarity Clear (Clear) Urine pH 5.5 (5.0-9.0) Urine Specific [place] 1.023 (1.001-1.035) Urine Protein Negative (Negative) Urine Ketones 1+ (Negative) H Urine Blood Negative /uL (Negative) Urine Nitrite Negative (Negative) Urine Bilirubin Negative (Negative) Urine Urobilinogen Normal mg/dL (Negative) Urine Leukocyte Esterase Negative /uL (Negative) Urine RBC 1 /hpf (0 - 3) Urine Microscopic WBC < 1 /HPF (0-3) Urine Squamous Epithelial Cells Few /hpf (<5) Urine Bacteria None seen /hpf (None Seen) Urine Glucose 4+ mg/dL (Normal) H Microbiology Microbiology Date/Time Source Procedure Growth Status 05/15/25 08:01 Nose MRSA Screen - Final Complete Labs and/or images reviewed: Labs reviewed by me, Image(s) reviewed by me Assessment/Plan Assessment/Plan Impression: -acute alcohol intoxication -diabetic ketoacidosis -toxic metabolic encephalopathy -cirrhosis with portal hypertension -cholelithiasis -leukopenia -thrombocytopenia Plan: EVENTS: Blood sugars uncontrolled earlier. Change sliding scale with improvement noted now. Patient reporting abdominal pain, lower extremity pain. CT scan reviewed with the patient. DVT study of lower extremities. -K and Mag replacement -stop insulin drip, start q.4 coverage. Lantus 15 units now prior to stopping insulin drip and daily -DC IV fluids -continue consistent carbohydrate diet -lorazepam p.r.n. alcohol withdrawal symptoms -stop antibiotics -repeat labs in a.m. -reassess for discharge in a.m. Total time spent with patient discussing and formulating plan of care: 35 minutes. This medical document was created using an electronic medical record system with [employer] dictation system. Although this document has been carefully reviewed, there may still be some phonetic and typographical errors. These areas are purely typographical due to imperfections of the software programs, and do not reflect any compromise in the patient's medical care. Plan discussed with: Patient, Other (RN) My Orders Orders - ARMOND MARCELO NP Procedure Category Date Status Time * Pediatric Medical Assistant CONS 05/15/25 Transmitted Consult Mrsa Screen HOLLY 05/16/25 Logged 09:59 Insulin Lantus PHA 05/16/25 In Process (Glargine) (Lantus) 10:00 Glucose Blood PHA 05/16/25 In Process (Accu-Chek Comfort 12:00 Insulin R (Human) PHA 05/16/25 In Process (Insulin R) 12:00 Dextrose 50% Syringe PHA 05/16/25 In Process 09:15 Folic Acid Tablet PHA 05/17/25 In Process 10:00 Multiple Vitamin PHA 05/17/25 In Process Tablet (Mvi Tab) 10:00 Magnesium Oxide PHA 05/17/25 In Process Tablet (Mag-Ox Tablet) 10:00 Thiamine Tab PHA 05/17/25 In Process 10:00 Potassium Chloride PHA 05/16/25 Logged (Potassium Chloride). 16:15 Date of Service: May 16, 2025 Billing Provider: ARMOND MARCELO NP Common Visit Codes: [id number] INP/OBS CARE(HIGH) ARMOND MARCELO NP May 16, 2025 16:20
[2025-05-16] MEDS: LACTULOSE 20Gm/30ML SOLN PO ONE (16:30)
[2025-05-16] MEDS: MAGNESIUM SULFATE 1GM/100ML 100 ML IV SCH (16:57)
--- NOTE | 2025-05-16 17:03 | DVH ---
Bilateral lower extremity venous duplex Date: 05/16/2025 04:32 PM Clinical History: RULE OUT DVT Comparison: None Images submitted: Transaxial, longitudinal and Doppler imaging of both lower extremity deep venous sy stems was obtained. Findings: Duplex Doppler evaluation of the deep venous systems of both lower extremities from the common femora l veins to the popliteal veins including color Doppler and spectral/pulsed waveform analysis was perf ormed. RIGHT SIDE: The common femoral vein demonstrates appropriate compressibility and waveform variability. There is compressibility/patency of the great saphenous vein at the proximal thigh. The femoral vein demonstrates appropriate compressibility and waveform variability. The deep femoral vein demonstrates appropriate compressibility and waveform variability. The popliteal vein demonstrates appropriate compressibility and waveform variability. There is normal compressibility at the tibioperoneal trunk. LEFT SIDE: The common femoral vein demonstrates appropriate compressibility and waveform variability. There is compressibility/patency of the great saphenous vein at the proximal thigh. The femoral vein demonstrates appropriate compressibility and waveform variability. The deep femoral vein demonstrates appropriate compressibility and waveform variability. The popliteal vein demonstrates appropriate compressibility and waveform variability. There is normal compressibility at the tibioperoneal trunk. IMPRESSION: 1. No right or left femoropopliteal venous thrombosis. 2. If clinical concern/symptoms persist or worsen, short-interval follow-up study is suggested. 3. END IMPRESSION:
[2025-05-16] MEDS: POTASSIUM CHLORIDE 40 MEQ, LIDOCAINE 1% (LOCAL ANESTH.) 4 ML in SODIUM CHL 0.9% 250 ML IV ONE (18:58)
[2025-05-17] VITALS (10 sets, daily range): BP systolic 106–128; BP diastolic 53–81; PULSE 92–106; RESP 12–20; TEMP 98–98.9; O2SAT 87–93
[2025-05-17] MEDS: MAGNESIUM OXIDE 400 MG TAB PO SCH (08:11)
[2025-05-17] MEDS: THIAMINE HCL 100 MG TAB PO SCH (08:11)
[2025-05-17] MEDS: FOLIC ACID 1 MG TAB PO SCH (08:11)
[2025-05-17] MEDS: MULTIPLE VITAMIN TAB PO SCH (08:12)
[2025-05-17] MEDS ORDERED: BLOO1KIT60 XX (12:22)
[2025-05-17] MEDS ORDERED: LANC-347 XX (12:22)
--- NOTE | 2025-05-17 12:31 | DVHDS2 ---
Discharge Summary Date of Admission May 14, 2025 at 23:45 Date of Discharge: May 17, 2025 Admitting Diagnosis Diabetic ketoacidosis Labs/Diagnostic Data: Laboratory Results Test 05/17/25 08:09 05/16/25 01:51 05/15/25 09:54 05/15/25 08:51 POC Glucose 136 mg/dl (70-106) Sodium Level 137 mmol/L (136-145) Potassium Level 3.4 mmol/L (3.5-5.1) Chloride Level 106 mmol/L (98-107) Carbon Dioxide Level 22 mmol/L (20-31) Anion Gap 9 (5-15) Blood Urea Nitrogen < 5 mg/dL (9-23) Creatinine 0.90 mg/dL (0.700-1.30) Glomerular Filtration Rate Calc 107 mL/min (>90) BUN/Creatinine Ratio 5.6 (10.0-20.0) Serum Glucose 249 mg/dL (74-106) Calcium Level 8.3 mg/dL (8.7-10.4) Lactic Acid Level 2.2 mmol/L (0.4-2.0) Serum Osmolality 297 mOsm/kg (278-298) Phosphorus Level 1.6 mg/dL (2.4-5.1) Magnesium Level 1.7 mg/dL (1.6-2.6) Beta-Hydroxybutyric Acid 1.774 mmol/L (< 0.4) Test 05/15/25 08:05 05/15/25 07:53 05/15/25 03:25 05/15/25 01:50 Blood Gas Specimen Type Arterial Blood Gas Sample Site Left radial Blood Gas Patient Temperature 37.0 Arterial Blood Date Drawn [id number] Arterial Blood pH 7.420 (7.350-7.450) Arterial Blood Partial Pressure CO2 25.8 mmHg (35.0-48.0) Arterial Blood Partial Pressure O2 68.9 mmHg (83.0-108.0) Arterial Blood HCO3 16.4 mmol/L (21.0-28.0) Arterial Blood Oxygen Saturation 93.0 % (94.0-98.0) Arterial Blood Base Excess -6.4 mmol/L (-2.0-3.0) Arterial Blood Oxyhemoglobin 92.1 % (94.0-98.0) Arterial Blood Carboxyhemoglobin 0.6 % (0.5-1.5) Arterial Blood Methemoglobin 0.4 % (0.0-1.5) Anmol Test Yes Blood Gas Total Hemoglobin 13.20 g/dL (13.5-17.5) Blood Gas Liter Flow 4.00 Blood Gas Modality Nasal cannula FiO2 % 36.0 Stool Occult Blood Negative (Negative) Stool Occult Blood Sample #3 (Negative) White Blood Count 2.6 10^3/uL (4.4-10.8) Red Blood Count 3.28 10^6/uL (4.5-5.90) Hemoglobin 12.0 g/dL (13.5-17.5) Hematocrit 34.4 % (41.0-53.0) Mean Corpuscular Volume 104.9 fL (80.0-100.0) Mean Corpuscular Hemoglobin 36.8 pg (28.0-32.0) Mean Corpuscular Hemoglobin Concent 35.1 g/dL (32.0-36.0) Red Cell Distribution Width 13.3 % (11.8-14.3) Platelet Count 70 10^3/uL (140-450) Mean Platelet Volume 7.5 fL (6.9-10.8) Neutrophils (%) (Auto) 43.5 % (37.0-80.0) Lymphocytes (%) (Auto) 36.4 % (10.0-50.0) Monocytes (%) (Auto) 14.3 % (0.0-12.0) Eosinophils (%) (Auto) 4.4 % (0.0-7.0) Basophils (%) (Auto) 1.4 % (0.0-2.0) Neutrophils # (Auto) 1.1 10 ^3/uL (1.6-8.6) Lymphocytes # (Auto) 0.9 10 ^3/uL (0.4-5.4) Monocytes # (Auto) 0.4 10 ^3/uL (0-1.3) Eosinophils # (Auto) 0.1 10 ^3/uL (0-0.8) Basophils # (Auto) 0 10 ^3/uL (0-0.2) Nucleated Red Blood Cells 0.1 % Hemoglobin A1c 11.0 % A1C (<5.7) Total Bilirubin 0.6 mg/dL (0.2-1.0) Aspartate Amino Transferase (AST) 82 U/L (13-40) Alanine Aminotransferase (ALT) 50 U/L (7-40) Alkaline Phosphatase 213 U/L (46-116) Total Protein 6.2 g/dL (5.7-8.2) Albumin 2.9 g/dL (3.2-4.8) Triglycerides Level 517 mg/dL (< 150) Cholesterol Level 135 mg/dL (< 200) LDL Cholesterol mg/dL (< 100) HDL Cholesterol 31 mg/dL (40-59) SARS-CoV-2 Antigen (Rapid) Negative (NEGATIVE) Test 05/15/25 00:00 05/14/25 21:07 05/14/25 19:52 Urine Color Light-yellow (Yellow) Urine Clarity Clear (Clear) Urine pH 5.5 (5.0-9.0) Urine Specific [place] 1.023 (1.001-1.035) Urine Protein Negative (Negative) Urine Ketones 1+ (Negative) Urine Blood Negative /uL (Negative) Urine Nitrite Negative (Negative) Urine Bilirubin Negative (Negative) Urine Urobilinogen Normal mg/dL (Negative) Urine Leukocyte Esterase Negative /uL (Negative) Urine RBC 1 /hpf (0 - 3) Urine Microscopic WBC < 1 /HPF (0-3) Urine Squamous Epithelial Cells Few /hpf (<5) Urine Bacteria None seen /hpf (None Seen) Urine Glucose 4+ mg/dL (Normal) Urine Opiates Screen Neg (NEGATIVE) Urine Fentanyl Screen Neg (NEGATIVE) Urine Barbiturates Screen Neg (NEGATIVE) Urine Phencyclidine Screen Neg (NEGATIVE) Urine Amphetamines Screen Neg (NEGATIVE) Urine Benzodiazepines Screen Neg (NEGATIVE) Urine Cocaine Screen Neg (NEGATIVE) Urine Cannabinoids Screen Neg (NEGATIVE) Troponin I High Sensitivity < 3 ng/L (</=54) Plasma/Serum Blood Alcohol 124.7 mg/dL (<10) Other Laboratory Tests 05/16/25 01:51 05/15/25 03:25 Brief Hx & Hospital Course: History of Present Illness Shahid Huff is a 44-year-old male with past medical history of diabetes, hypertension, hyperlipidemia, alcohol abuse, liver disease who presented to the ED with the chief complaints of generalized body pains, mostly in the abdomen, legs which is 10/10 in instensity, associated with nausea, vomiting, chills, generalized weakness, dizziness since the last 2 days. Patient also states shortness of breath, mild chest pain. Patient states he has been taking his insulin. Patient was admitted last March for DKA, alcoholic liver cirrhosis. Patient was recently discharged 4 days ago with similar complaints and left AMA at that time. Patient states that his last drink was at 5:00 p.m. yesterday. Patient is on oxygen. At present CIWA score is 6. Patient states having tactile hallucinations, the vision, dizziness, denies any auditory, visual hallucinations. Patient is admitted for further management. Course of hospitalization: Patient was treated with aggressive IV hydration as well as banana bag. Patient had improvement with blood sugars, now on diabetic ketoacidosis. Patient was tolerating oral intake. Patient did report having bilateral lower extremity pain, probably secondary to neuropathy. Patient will be discharged from the hospital, with prescriptions for both Lantus as well as regular insulin and Accu-Chek machine given the patient states that all of his medications equipment is currently on [place] and is unable to obtain it. Apparently, the patient has a arranged for placement at a facility. Patient was instructed to follow up with his PCP in 1-2 weeks, and abstain from drinking alcohol. Patient verbalized understanding. All questions answered. Physical examination General: Alert and Oriented x3. No acute distress. Well-nourished. Eyes: EOMI. Anicteric. HENT: Moist mucous membranes. Lungs: Clear to auscultation bilaterally. No accessory muscle use. Cardiovascular: Regular rate and rhythm. No murmur. No JVD. Abdomen: Soft, non-tender and non-distended. No palpable masses. Extremities: No edema. Non-tender. Skin: No rashes or lesions. Warm. Neurologic: No focal neurological deficits. CN II-XII grossly intact, but not individually tested. Psychiatric: Cooperative. Appropriate mood and affect. Total time spent with patient discussing and formulating plan of care: 35 minutes. This medical document was created using an electronic medical record system with [employer] system. Although this document has been carefully reviewed, there may still be some phonetic and typographical errors. These areas are purely typographical due to imperfections of the software programs, and do not reflect any compromise in the patient's medical care. Condition at Discharge: Fair Final Diagnosis/Problems List Diabetic ketoacidosis -acute alcohol intoxication -diabetic ketoacidosis -toxic metabolic encephalopathy -cirrhosis with portal hypertension -cholelithiasis -leukopenia -thrombocytopenia Discharge Disposition: Home Discharge Instruct/Medications Diet: Consistent carbohydrate Activity: See Comment Follow Up/Referral: Follow up with PCP in 1-2 weeks Medications: Lantus 15 units subcutaneous injection b.i.d. Novolin R 6 units before each meal Scheduled Gabapentin (Gabapentin), 1 CAP PO DAILY Insulin Glargine (Insulin Glargine Solostar), 15 UNITS SUBCUT BID Insulin Lispro (Humalog Kwikpen), 6 UNIT SC TIDWMEALS Lisinopril (Lisinopril), 1 TAB PO DAILY Simvastatin (Simvastatin), 1 TAB PO HS Durable Medical Equipment Blood Glucose Monitoring Suppl (Blood Glucose Monitoring W/Device), KIT XX TIDWMEALS, (DME) Blood Glucose Monitoring Suppl (D-Care Glucometer Kit/Glu W/Device), KIT XX ACHS, (DME) Lancets (Freestyle Lancets), EA XX TIDWMEALS, (DME) Lancets (Freestyle Lancets), BOX XX ACHS, (DME) 36 Discharge Statement: "Patient was advised to return to the ER or call 911 if any headaches, dizziness, shortness of breath, chest pain, abdominal pain, bleeding, fevers, or worsening of medical condition. Patient was counseled about treatment plan, medications, possible side effects, patientverbalized understanding. All questions were answered to the best of my ability. This discharge took greater then 30 minutes in planning, reviewing documentation, counseling the patient, and discussing with other team members." ASSESSMENT ASSESSMENT Assessment Diabetic ketoacidosis Date of Service: May 17, 2025 Billing Provider: ARMOND MARCELO NP Common Visit Codes: 75382-THL/OBS DISCH DAY >30min ARMOND MARCELO NP May 17, 2025 12:31
[2025-05-17 17:24] LABS: Hepatitis B Surface Antigen Negative (Negative); Hepatitis C Antibody Negative (Negative)
[2025-05-17 18:25] LABS: Hepatitis A Total Antibody Positive (Negative)
[2025-05-18 01:00] VITALS: BP 125/72; PULSE 96; RESP 20; TEMP 98.2; O2SAT 93
[2025-05-18 05:00] VITALS: BP 112/71; PULSE 86; RESP 20; TEMP 98; O2SAT 94
[2025-05-18 08:00] VITALS: PULSE 90; RESP 18
[2025-05-18 08:47] VITALS: BP 130/81; PULSE 89; RESP 18; TEMP 98.2; O2SAT 92
[2025-05-18 13:05] VITALS: TEMP 36.8
== END 2025-05-18 14:00 | disposition home or self-care (01) | DRG 420 ==
LOC: EDBD 19:35 → ER 19:35 → OVERFLOW 23:45 → TELE-WESTW 05-15 21:22
PROVIDERS: ADMIT Nurse Practitioner Acute Care; ATTEND Nurse Practitioner Acute Care
DX: E11.10 Type 2 diabetes mellitus with ketoacidosis without coma (principal); G92.8 Other toxic encephalopathy; I16.9 Hypertensive crisis, unspecified; D69.59 Other secondary thrombocytopenia; K74.60 Unspecified cirrhosis of liver; R65.10 Systemic inflammatory response syndrome (SIRS) of non-infectious origin without acute organ dysfunction; K76.6 Portal hypertension; E11.40 Type 2 diabetes mellitus with diabetic neuropathy, unspecified; E78.5 Hyperlipidemia, unspecified; F10.229 Alcohol dependence with intoxication, unspecified; K80.20 Calculus of gallbladder without cholecystitis without obstruction; F10.239 Alcohol dependence with withdrawal, unspecified; K59.01 Slow transit constipation; F12.10 Cannabis abuse, uncomplicated; Z20.822 Contact with and (suspected) exposure to COVID-19; Z88.0 Allergy status to penicillin; Z79.4 Long term (current) use of insulin; Z79.899 Other long term (current) drug therapy; Y90.6 Blood alcohol level of 120-199 mg/100 ml
CPT/HCPCS: 36415; 36600; 71045; 74176; 76705; 80048; 80053; 80061; 80307; 80320; 81001; 82010; 82270; 82805; 82962; 83036; 83605; 83735; 83930; 84100; 84484; 85025; 86704; 86706; 86708; 86803; 87040; 87081; 87340; 87426; 93970; 96360; 99291; G0378; J1815; J2003; J2470; J2543; J7060